=== PATIENT | male | born 1955 | race Caucasian/White ===

== ENCOUNTER 2018-12-24 14:09 | Emergency (ER) | payer BC, MEDICARE ==
[2018-12-24 14:20] VITALS: RESP 18; TEMP 99.2
--- NOTE | 2018-12-24 14:37 | ED ---
Lower Extremity Injury HPI - General Chief Complaint: Extremity Injury, Lower Stated Complaint: Hip Pain Time Seen by Provider: 12/24/18 14:12 Source: patient, RN notes reviewed, old records reviewed Mode of arrival: EMS Limitations: physical limitation - History of Present Illness Initial Comments: This is a 7-year-old male the ER for evaluation. Patient coming of severe right hip pain inability and late. Patient has history of hip surgery hip replacement as well as infection. Patient currently having severe hip pain that occurred after moving in his chair earlier today this occurred 3 days after a fall onto the ground. Patient currently unable to ambulate, denies neurological complaint of his right hip or leg MD Complaint: hip injury, thigh injury -: days(s) Injury: Hip: Right, Thigh: Right Type of Injury: blunt Place: home Severity: severe Severity scale (1-10): 9 Improves With: nothing Worsens With: weight bearing Context: fall, direct blow Associated Symptoms: snap/pop sensation - Related Data Home Medications Medication Instructions Recorded Confirmed Cholecalciferol (Vitamin D3) 1,000 unit PO DAILY 05/19/14 12/24/18 [Vitamin D3] Omeprazole 20 mg PO BID 05/19/14 12/24/18 Zolpidem Tartrate 5 mg PO HS PRN 05/19/14 12/24/18 ALPRAZolam [Xanax] 0.25 mg PO TID PRN 12/24/18 12/24/18 Diclofenac Sodium [Voltaren] 50 mg PO BID 12/24/18 12/24/18 Ergocalciferol (Vitamin D2) 50,000 unit PO Q30D 12/24/18 12/24/18 [Vitamin D2] Ibuprofen [Motrin] 800 mg PO Q6H PRN 12/24/18 12/24/18 Lisinopril [Zestril] 20 mg PO DAILY 12/24/18 12/24/18 tiZANidine HCL [Zanaflex] 4 mg PO BID 12/24/18 12/24/18 Allergies Allergy/AdvReac Type Severity Reaction Status Date / Time Quinolones Allergy Unknown Verified 12/24/18 14:47 simvastatin [From Zocor] Allergy Unknown Verified 12/24/18 14:47 Review of Systems ROS Statement: Those systems with pertinent positive or pertinent negative responses have been documented in the HPI. ROS Other: All systems not noted in ROS Statement are negative. Past Medical History Past Medical History: GERD/Reflux, Hyperlipidemia Additional Past Medical History / Comment(s): HX HIP DYSPLASIA, HX ANEMIA, RIGHT HIP DRAINING OPEN AREA OVER PREVIOUS SURGICAL SITE. WEARS LIFT SHOE RIGHT SHOE History of Any Multi-Drug Resistant Organisms: MRSA Date of last positivie culture/infection: UNKNOWN MDRO Source:: RIGHT HIP Past Surgical History: Joint Replacement, Orthopedic Surgery, Tonsillectomy Additional Past Surgical History / Comment(s): RT HIP REPLACED X4, FIRST AT AGE 13, LAST ONE 1987, LEFT KNEE POLYPS UNDER SKIN REMOVED, LEFT WRIST Past Anesthesia/Blood Transfusion Reactions: No Reported Reaction Past Psychological History: Anxiety Smoking Status: Former smoker Past Alcohol Use History: None Reported Past Drug Use History: None Reported - Past Family History Father Family Medical History: Cancer Additional Family Medical History / Comment(s): COLO-RECTAL General Exam - General Exam Comments Initial Comments: Severe right hip pain especially with movement Limitations: physical limitation General appearance: alert, in no apparent distress Head exam: Present: atraumatic, normocephalic, normal inspection Eye exam: Present: normal appearance, PERRL, EOMI. Absent: scleral icterus, conjunctival injection, periorbital swelling ENT exam: Present: normal exam, mucous membranes moist Neck exam: Present: normal inspection. Absent: tenderness, meningismus, lymphadenopathy Respiratory exam: Present: normal lung sounds bilaterally. Absent: respiratory distress, wheezes, rales, rhonchi, stridor Cardiovascular Exam: Present: regular rate, normal rhythm, normal heart sounds. Absent: systolic murmur, diastolic murmur, rubs, gallop, clicks GI/Abdominal exam: Present: soft, normal bowel sounds. Absent: distended, tenderness, guarding, rebound, rigid Extremities exam: Present: normal inspection, full ROM, normal capillary refill. Absent: tenderness, pedal edema, joint swelling, calf tenderness Back exam: Present: normal inspection Neurological exam: Present: alert, oriented X3, CN II-XII intact Psychiatric exam: Present: normal affect, normal mood Skin exam: Present: warm, dry, intact, normal color. Absent: rash Course Vital Signs 12/24/18 14:15 Temperature 99.2 F Pulse Rate 80 Respiratory 18 Rate Blood Pressure 109/75 O2 Sat by Pulse 99 Oximetry - Reevaluation(s) Reevaluation #1: 12/24/18 16:25 Medical record is reviewed Reevaluation #2: 12/24/18 16:[address] Coronado who recommends transfer for trauma surgery Reevaluation #3: 12/24/18 16:25 Patient has adequate pain control currently Medical Decision Making - Medical Decision Making 63 male the ER status post fall. Fall with fracture fractures through prior traumatic joints and prior joint replacement. Patient will be transferred to [facility] for surgical evaluation management of right femur fracture or prosthetic joint - Radiology Data Radiology results: report reviewed (X-ray right femur shows positive fracture through prosthetic joint), image reviewed Disposition Clinical Impression: Fracture of hip, Status post hip surgery, Status post revision of total hip replacement, Right femoral fracture Disposition: OTHER INSTITUTION NOT DEFINED Condition: Fair Is patient prescribed a controlled substance at d/c from ED?: No Referrals: Raphael Reddy MD [Primary Care Provider] - 1-2 days - Out of Hospital Transfer - Req. Specs Out of Hospital Transfer - Requested Specifics: Other Emergency Center ([facility])
--- NOTE | 2018-12-24 15:24 | XR ---
Right hip HISTORY: Pain, trauma 4 days prior 3 views of the right hip correlated to prior exam 07/26/2014 Patient shows right hip arthroplasty change which is stable, screw extends into the pelvis. Bone mine ralization is reduced. Heterotopic new bone formation present about the right hip. Periosteal new bon e formation is present along the femoral shaft. There is an oblique fracture through the proximal rig ht femoral diaphysis. Fracture extends through the stem portion level of the hip prosthesis. No dislo cation. Vascular calcifications. IMPRESSION: Proximal femoral fracture, postop changes. Low bone mineralization.
[2018-12-24] MEDS ORDERED: SODIUM CHLORIDE 0.9% 500 ML 500 ML IV STA (16:17)
[2018-12-24] MEDS ORDERED: SODIUM CHLORIDE 0.9% 1,000 ML IV STA (16:17)
[2018-12-24] MEDS ORDERED: MORPHINE SULFATE 4 MG/ML SYRINGE IV STA (16:17)
[2018-12-24 17:03] LABS: Basophils # (A) 0.1 k/uL (0-0.2); Basophils % (A) 1 %; Eosinophils # (A) 0.2 k/uL (0-0.7); Eosinophils % (A) 3 %; HCT 41.9 % (39.0-53.0); HGB 14.2 gm/dL (13.0-17.5); Lymphocytes # (A) 0.9 k/uL (1.0-4.8); Lymphocytes % (A) 17 %; MCHC 33.8 g/dL (31.0-37.0); MCV 91.7 fL (80.0-100.0); Mean Platelet Volume 7.6; Monocytes # (A) 0.4 k/uL (0-1.0); Monocytes % (A) 8 %; Neutrophils # (A) 3.7 k/uL (1.3-7.7); Neutrophils % (A) 69 %; Platelet Count 236 k/uL (150-450); RBC 4.57 m/uL (4.30-5.90); RDW 13.5 % (11.5-15.5); WBC 5.4 k/uL (3.8-10.6)
[2018-12-24 17:06] LABS: Albumin 3.5 g/dL (3.5-5.0); INR 0.9 (<1.2); Magnesium 1.9 mg/dL (1.6-2.3); Partial Thromboplastin Time 23.7 sec (22.0-30.0); Potassium 4.7 mmol/L (3.5-5.1); Prothrombin Time 9.5 sec (9.0-12.0); Total Bilirubin 0.7 mg/dL (0.2-1.3); Total Protein 6.1 g/dL (6.3-8.2)
[2018-12-24 17:43] VITALS: BP 146/93; PULSE 86
== END 2018-12-24 17:45 | disposition other institution (70) ==
LOC: EC 14:09
DX: S72.001A Fracture of unspecified part of neck of right femur, initial encounter for closed fracture (principal); K21.9 Gastro-esophageal reflux disease without esophagitis; Z96.641 Presence of right artificial hip joint; Z87.891 Personal history of nicotine dependence; Z86.14 Personal history of Methicillin resistant Staphylococcus aureus infection; Z79.1 Long term (current) use of non-steroidal anti-inflammatories (NSAID); Z79.899 Other long term (current) drug therapy; Z88.8 Allergy status to other drugs, medicaments and biological substances; W01.0XXA Fall on same level from slipping, tripping and stumbling without subsequent striking against object, initial encounter; Y92.009 Unspecified place in unspecified non-institutional (private) residence as the place of occurrence of the external cause
CPT/HCPCS: 99285; 96374; 96361; 36415; 80053; 83735; 84100; 85025; 85610; 85730; 73502; J2270

== ENCOUNTER → 2019-08-24 | Outpatient (CLI) | payer MEDICARE, OTHER ==
--- NOTE | 2019-08-24 09:00 | US ---
EXAMINATION TYPE: US liver DATE OF EXAM: 08/24/2019 COMPARISON: NONE CLINICAL HISTORY: R94.5 Abnormal Liver Function Test. abn labs, no symptoms EXAM MEASUREMENTS: Liver Length: 9.7 cm Gallbladder Wall: 0.3 cm CBD: 0.7 cm Right Kidney: 9.7 x 5.7 x 5.3 cm Pancreas: wnl Liver: wnl Gallbladder: wnl Evidence for sonographic Hernández's sign: no CBD: wnl Right Kidney: wnl IMPRESSION: 1. Unremarkable study.
== END | disposition home or self-care (01) ==
LOC: RADUSWWP 08:30
PROVIDERS: ATTEND Family Medicine
DX: R94.5 Abnormal results of liver function studies (principal); Z88.5 Allergy status to narcotic agent; Z88.6 Allergy status to analgesic agent; Z88.8 Allergy status to other drugs, medicaments and biological substances; Z91.018 Allergy to other foods
CPT/HCPCS: 76705

== ENCOUNTER 2021-12-26 07:49 | Day surgery (SDC) | payer MEDICARE ==
[2021-12-25 08:53] VITALS: BMI 33.9
[~2021-12-26 07:49] MED LIST: LACTATED RINGERS 1,000 ML IV SCH; LIDOCAINE 1% (10MG/ML) FOR IV START INTRADERMA PRN
[2021-12-26 08:15] VITALS: TEMP 98.1
[2021-12-26] MEDS ORDERED: MIDAZOLAM 2 MG/2 ML VIAL ONE (08:31)
[2021-12-26] MEDS ORDERED: PROPOFOL 10 MG/ML 20 ML VIAL IV ONE (08:31)
[2021-12-26] MEDS ORDERED: LIDOCAINE 2% INJ 20 MG/ML (2 ML VIAL) ONE (08:31)
[2021-12-26] MEDS ORDERED: fentaNYL (PF) 50 MCG/ML 2 ML AMP ONE (08:31)
--- NOTE | 2021-12-26 08:35 | P.GSHP ---
History of Present Illness H&P Date: 12/26/21 Chief Complaint: GERD, screening 66-year-old male here today for upper and lower endoscopy. Patient with history of Wen's esophagus and chronic reflux. Last EGD 2013. Patient also with family history of colon cancer in his father. Last colonoscopy 8 years ago. No bowel complaints. Past Medical History Past Medical History: Deep Vein Thrombosis (DVT), GERD/Reflux, Hyperlipidemia, Hypertension, Thyroid Disorder Additional Past Medical History / Comment(s): RIGHT HIP DYSPLASIA, ANEMIA, CHRONIC INFECTION AND ELEVATED INFLAMMATORY MARKERS History of Any Multi-Drug Resistant Organisms: MRSA Date of last positivie culture/infection: UNKNOWN MDRO Source:: RIGHT HIP Past Surgical History: Hernia Repair, Joint Replacement, Orthopedic Surgery, Tonsillectomy Additional Past Surgical History / Comment(s): RT HIP REPLACED MULTIPLE TIMES SINCE THE AGE OF 13-ARTIFICAL HIP HAS SINCE BEEN REMOVED DUE TO ONGOING INFECTION AND PT USES A WHEELCHAIR, LEFT KNEE POLYPS UNDER SKIN REMOVED, LEFT WRIST SURG CHILD Past Anesthesia/Blood Transfusion Reactions: No Reported Reaction Past Psychological History: Anxiety Smoking Status: Current every day smoker Past Alcohol Use History: Daily Past Drug Use History: None Reported - Past Family History Father Family Medical History: Cancer Additional Family Medical History / Comment(s): COLO-RECTAL Medications and Allergies Home Medications Medication Instructions Recorded Confirmed Type Omeprazole 20 mg PO BID PRN 05/19/14 12/26/21 History ALPRAZolam [Xanax] 0.25 mg PO TID PRN 12/24/18 12/26/21 History lisinopriL [Zestril] 40 mg PO DAILY 12/24/18 12/26/21 History tiZANidine HCL [Zanaflex] 4 mg PO BID 12/24/18 12/26/21 History Doxycycline Hyclate 50 mg PO BID 12/25/21 12/26/21 History Fenofibrate 120 mg PO DAILY 12/25/21 12/26/21 History Ferrous Sulfate [Iron] 325 mg PO DAILY 12/25/21 12/26/21 History Icosapent Ethyl [Vascepa] 1 gm PO BID 12/25/21 12/26/21 History Levothyroxine Sodium [Synthroid] 25 mcg PO DAILY 12/25/21 12/26/21 History Pravastatin Sodium [Pravachol] 40 mg PO HS 12/25/21 12/26/21 History traZODone HCL [Desyrel] 50 mg PO HS 12/25/21 12/26/21 History Allergies Allergy/AdvReac Type Severity Reaction Status Date / Time codeine Allergy Itching Verified 12/26/21 08:10 onion Allergy Nausea & Verified 12/26/21 08:10 Vomiting & Diarrhea Quinolones Allergy Unknown Verified 12/26/21 08:10 simvastatin [From Zocor] Allergy Unknown Verified 12/26/21 08:10 Surgical - Exam Vital Signs Temp Pulse Resp BP Pulse Ox 98.1 F 89 20 124/87 99 12/26/21 08:14 12/26/21 08:14 12/26/21 08:14 12/26/21 08:14 12/26/21 08:14 Physical exam: General: Well-developed, well-nourished HEENT: Normocephalic, sclerae nonicteric Abdomen: Nontender, nondistended Extremities: No edema Neuro: Alert and oriented Assessment and Plan (1) Colon cancer screening Narrative/Plan: Will proceed with upper and lower endoscopy at this time. Current Visit: Yes Status: Acute Code(s): Z12.11 - ENCOUNTER FOR SCREENING FOR MALIGNANT NEOPLASM OF COLON SNOMED Code(s): 628303251
--- NOTE | 2021-12-26 09:01 | P.PCN ---
Date of Procedure: 12/26/21 Procedure(s) Performed: PREOPERATIVE DIAGNOSIS: GERD, Wen's esophagus, family history of colon cancer, screening POSTOPERATIVE DIAGNOSIS: Gastritis, hiatal hernia, Wen's esophagus, tortuous colon, diverticulosis PROCEDURE: 1. EGD with biopsy 2. Colonoscopy to the transverse colon ANESTHESIA: [facility] [place]GEON: Sharif Zheng M.D. SPECIMENS: Antrum, distal esophagus ENDOSCOPIC PROCEDURE: The patient was on the endoscopy table in the left decubitus position. The Olympus gastroscope was inserted into the oropharynx and passed under direct visualization to the region of the third portion of the duodenum. From that point the scope was slowly withdrawn inspecting all surfaces carefully. There were no neoplastic inflammatory or polypoid lesions throughout the duodenum. The pylorus was widely patent. The stomach was carefully inspected. There was mild gastritis present. A biopsy of the antrum took place to rule out H. pylori. Retroflexion revealed a small moderate-sized hiatal hernia. GE junction was present 3 cm above the diaphragmatic hiatus. The patient had a short 1.5 cm segment of Wen's esophagus. A biopsy was taken. There were no inflammatory changes there. The remainder the esophagus appear normal. The patient was kept on the endoscopy table in the left decubitus position. The Olympus colonoscope was inserted into the anus and passed under direct visualization to the mid transverse colon. We could not advance the scope any more proximal than that because of distal tortuosity. Multiple attempts and abdominal pressure was applied without success. The scope was withdrawn. There were no abnormalities identified through the transverse descending sigmoid or rectum. The patient had mild diverticulosis. Digital rectal examination was normal. The patient was taken to the recovery room in stable condition per anesthesia guidelines. RECOMMENDATIONS: Will discuss options of barium enema with patient. Continue antiacid therapy. Await biopsy results. Repeat EGD and colonoscopy 5 years
[2021-12-26 09:39] VITALS: BP 117/78; PULSE 74; RESP 18
--- NOTE | 2021-12-26 15:56 | FL ---
EXAMINATION TYPE: FL barium enema DATE OF EXAM: 12/26/2021 COMPARISON: NONE HISTORY: Family history of colon cancer. Incomplete colonoscopy. TECHNIQUE: A double contrast barium enema study is performed. A total of 3 minutes and 51 seconds o f fluoroscopic time was utilized during procedure and 37 images obtained. FINDINGS: Packer Fuser view of the abdomen shows. Osteopenia with significant remodeling of the right pelvi c bones and chronic displaced impacted fracture of the right femoral neck associated with right proxi mal femoral fixation and deformity. Suboptimal barium enema as the patient is completely unable to ta ke the right lateral position or to stand up. Elongated redundant sigmoid colon with reduced caliber and multiple diverticulosis, probably related to chronic diverticulosis. Similar changes are seen in the descending colon. Suboptimal filling and g aseous distention of the transverse colon and right hemicolon. The cecum was not opacified. No evidence of any mass or polyp, obstructing or constricting lesion throughout the left hemicolon. I t is not possible to exclude a colonic mass, stricture or other lesion in the right hemicolon or the transverse colon. IMPRESSION: Suboptimal barium enema as described above. No definite colonic mass or stricture in the left hemicol on. Colonic diverticulosis. It is not possible to exclude a colonic mass, stricture or other lesion i n the right hemicolon. Further CT colonography or routine CT scan of the abdomen and pelvis can be considered to evaluate th e right hemicolon.
== END 2021-12-26 09:59 | disposition home or self-care (01) ==
LOC: ORWHC2ENDO 07:49
PROVIDERS: ATTEND Surgery
DX: K29.50 Unspecified chronic gastritis without bleeding (principal); K22.70 Barrett's esophagus without dysplasia; K57.30 Diverticulosis of large intestine without perforation or abscess without bleeding; K44.9 Diaphragmatic hernia without obstruction or gangrene; K29.80 Duodenitis without bleeding; K21.9 Gastro-esophageal reflux disease without esophagitis; E78.5 Hyperlipidemia, unspecified; F17.200 Nicotine dependence, unspecified, uncomplicated; I10 Essential (primary) hypertension; Z86.718 Personal history of other venous thrombosis and embolism; Z80.0 Family history of malignant neoplasm of digestive organs
CPT/HCPCS: 88305; 45378; 43239; 74270; J2250; J3010; J2704; J2001

== ENCOUNTER 2022-10-22 09:20 | Inpatient (IN) | payer MEDICARE, OTHER ==
[2022-10-22] MEDS ORDERED: RX INFO: IV CONTRAST WAS GIVEN 1 EACH MISC MISCELLANE PRN (10:01)
--- NOTE | 2022-10-22 10:09 | ED ---
Extremity Problem HPI - General Chief complaint: Extremity Problem,Nontraumatic Stated complaint: pain left leg Time Seen by Provider: 10/22/22 09:33 Source: patient, RN notes reviewed Mode of arrival: ambulatory Limitations: no limitations - History of Present Illness Initial comments: This is a 67-year-old male who presents to the emergency department for left leg pain. Patient states that this has been increasing over the last week. Pain is controlled when lying down, however he states that he is barely able to put pressure on it when standing up due to the pain. Also states that his foot appears purple. He's had problems with his foot turning purple and becoming cold on and off for the last month. States that he was previously admitted for a blood clot in the left leg. Unsure if this was venous or arterial. He is currently taking Eliquis. Denies any chest pain or shortness of breath. Denies any fevers, chills, sore throat, cough, dyspnea, chest pain, palpitations, abdominal pain, nausea, vomiting, diarrhea, back pain, or headaches. MD Complaint: extremity pain, extremity swelling Onset/Timin -: week(s) Location: left, lower extremity Associated Symptoms: denies other symptoms - Related Data Home Medications Medication Instructions Recorded Confirmed tiZANidine HCL [Zanaflex] 4 mg PO DAILY 12/24/18 10/22/22 traZODone HCL [Desyrel] 50 - 100 mg PO HS PRN 12/25/21 10/22/22 ALPRAZolam [Xanax] 0.5 mg PO TID PRN 10/22/22 10/22/22 Albuterol Sulfate [Ventolin HFA] 2 puff INHALATION RT-Q6H PRN 10/22/22 10/22/22 Apixaban [Eliquis] 5 mg PO BID 10/22/22 10/22/22 Cholecalciferol [Vitamin D3 (25 25 mcg PO DAILY 10/22/22 10/22/22 Mcg = 1000 Iu)] Doxycycline Hyclate 200 mg PO DAILY 10/22/22 10/22/22 Fenofibrate [Lofibra] 160 mg PO DAILY 10/22/22 10/22/22 Levothyroxine Sodium [Synthroid] 50 mcg PO DAILY 10/22/22 10/22/22 icosapent ethyL [Icosapent Ethyl] 2 gm PO DAILY 10/22/22 10/22/22 lisinopriL 40 mg PO DAILY 10/22/22 10/22/22 Allergies Allergy/AdvReac Type Severity Reaction Status Date / Time codeine Allergy Itching Verified 10/22/22 14:00 onion Allergy Nausea & Verified 10/22/22 14:00 Vomiting & Diarrhea Quinolones Allergy Unknown Verified 10/22/22 14:00 simvastatin [From Zocor] Allergy Unknown Verified 10/22/22 14:00 Review of Systems ROS Statement: Those systems with pertinent positive or pertinent negative responses have been documented in the HPI. ROS Other: All systems not noted in ROS Statement are negative. Past Medical History Past Medical History: Deep Vein Thrombosis (DVT), GERD/Reflux, Hyperlipidemia, Hypertension, Thyroid Disorder Additional Past Medical History / Comment(s): RIGHT HIP DYSPLASIA, ANEMIA, CHRONIC INFECTION AND ELEVATED INFLAMMATORY MARKERS, DVT History of Any Multi-Drug Resistant Organisms: MRSA Date of last positivie culture/infection: UNKNOWN MDRO Source:: RIGHT HIP Past Surgical History: Hernia Repair, Joint Replacement, Orthopedic Surgery, Tonsillectomy Additional Past Surgical History / Comment(s): RT HIP REPLACED MULTIPLE TIMES SINCE THE AGE OF 13-ARTIFICAL HIP HAS SINCE BEEN REMOVED DUE TO ONGOING INFECTION AND PT USES A WHEELCHAIR, LEFT KNEE POLYPS UNDER SKIN REMOVED, LEFT WRIST SURG CHILD Past Anesthesia/Blood Transfusion Reactions: No Reported Reaction Past Psychological History: Anxiety Smoking Status: Current every day smoker Past Alcohol Use History: Daily Past Drug Use History: None Reported - Past Family History Father Family Medical History: Cancer Additional Family Medical History / Comment(s): COLO-RECTAL General Exam Limitations: no limitations General appearance: alert, in no apparent distress Head exam: Present: atraumatic, normocephalic, normal inspection Respiratory exam: Present: normal lung sounds bilaterally. Absent: respiratory distress, wheezes, rales, rhonchi, stridor Cardiovascular Exam: Present: regular rate, normal rhythm, normal heart sounds. Absent: systolic murmur, diastolic murmur, rubs, gallop, clicks Extremities exam: Present: other (Dark dusky appearance to the left foot and ankle, which is also cool to the touch. Nonpalpable DP and PT pulses. Capillary refill 2-3 seconds.) Neurological exam: Present: alert, oriented X3, CN II-XII intact Psychiatric exam: Present: normal affect, normal mood Course Vital Signs 10/22/22 10/22/22 10/22/22 09:30 10:32 12:47 Temperature 98.4 F Pulse Rate 93 75 85 Respiratory 20 18 18 Rate Blood Pressure 124/83 123/84 142/95 O2 Sat by Pulse 99 96 98 Oximetry 10/22/22 14:00 Temperature Pulse Rate 87 Respiratory 18 Rate Blood Pressure 128/97 O2 Sat by Pulse 96 Oximetry Medical Decision Making - Medical Decision Making This is a 67-year-old male who presents to the emergency department for left leg pain and swelling. Was pt. sent in by a medical professional or institution? @ -No Did you speak to anyone other than the patient for history? @ -No Did you review nursing and triage notes? @ -Yes, and I agree, it is accurate with regards to the patient's symptoms. Were old charts reviewed? @ -No Differential Diagnosis? @ -Differential Leg Pain: Leg fracture, leg sprain, DVT, PVD, arterial insufficiency, iliac artery aneurysm, cellulitis, compartment syndrome, tendinopathy, nerve entrapment, piriformis syndrome, osteoarthritis, rhabdomyolysis, myositis, cramping from an electrolyte imbalance, this is not meant to be an all inclusive list. CT interpreted by me (1pt min.)? @ -CT angiogram of the left lower extremity obtained. My interpretation identifies a left SFA occlusion. What testing was considered but not performed? (CT, X-rays, U/S, labs)? Why? @ -None What meds were considered but not given? Why? @ -None Did you discuss the management of the patient with other professionals? @ -Yes, Dr. Mosqueda, vascular surgery, who advised admission to medicine with vascular consult. I then spoke with Dr. Reddy, who accepts the patient for admission. Did you reconcile home meds? @ -No Was smoking cessation discussed for >3mins.? @ -No Was critical care preformed (if so, how long)? @ -No Were there social determinants of health that impacted care today? How? (Homelessness, low income, unemployed, alcoholism, drug addiction, transportation, low edu. Level, literacy, decrease access to med. care, penitentiary, rehab)? @ -No Was there de-escalation of care discussed even if they declined? (Discuss DNR or withdrawal of care, Hospice)? @ -No What co-morbidities impacted this encounter? (DM, HTN, Smoking, COPD, CAD, Cancer, CVA, Hep., AIDS, mental health diagnosis, sleep apnea, morbid obesity)? @ -HLD, HTN Was patient admitted / discharged? @ -Admitted. Patient did have a cool extremity on exam and pulses could not be palpated or found with the Doppler by either myself or the patient's nurse. CT angiogram of the left leg obtained revealing superficial femoral artery occlusion. Case discussed with Dr. Mosqueda, vascular surgery. We initially plan isidra on starting the patient on a heparin drip. However, the decision was made to take him to the [facility] instead. Patient was taken from the ED to the chemical laboratory technician for angiogram. Patient admitted to medicine with vascular surgery on as consult. Undiagnosed new problem with uncertain prognosis? @ -None Drug Therapy requiring intensive monitoring for toxicity (Heparin, Nitro, Insulin, Cardizem)? @ -None Were any procedures done? @ -None Diagnosis/symptom? @ -Left superficial femoral artery occlusion Acute, or Chronic, or Acute on Chronic? @ -Acute Uncomplicated (without systemic symptoms) or Complicated (systemic symptoms)? @ -Complicated Side effects of treatment? @ -None Exacerbation, Progression, or Severe Exacerbation] @ -Not applicable Poses a threat to life or bodily function? @ -Yes This case was discussed in detail with the attending ED physician, Dr. Patino. Presentation, findings, and treatment plan discussed in detail as well. - Lab Data Result diagrams: 10/23/22 03:53 10/22/22 10:36 Lab Results 10/22/22 10/22/22 10/22/22 Range/Units 10:36 10:36 11:35 WBC 5.2 (3.8-10.6) k/uL RBC 5.67 (4.30-5.90) m/uL Hgb 20.1 H* (13.0-17.5) gm/dL Hct 58.4 H* (39.0-53.0) % MCV 103.0 H (80.0-100.0) fL MCH 35.3 H (25.0-35.0) pg MCHC 34.3 (31.0-37.0) g/dL RDW 14.2 (11.5-15.5) % Plt Count 157 (150-450) k/uL MPV 7.6 Neutrophils % 68 % Lymphocytes % 19 % Monocytes % 6 % Eosinophils % 4 % Basophils % 1 % Neutrophils # 3.5 (1.3-7.7) k/uL Lymphocytes # 1.0 (1.0-4.8) k/uL Monocytes # 0.3 (0-1.0) k/uL Eosinophils # 0.2 (0-0.7) k/uL Basophils # 0.0 (0-0.2) k/uL Macrocytosis Slight PT 9.7 (9.0-12.0) sec INR 0.9 (<1.2) APTT 21.3 L (22.0-30.0) sec Sodium 132 L (137-145) mmol/L Potassium 4.3 (3.5-5.1) mmol/L Chloride 100 (98-107) mmol/L Carbon Dioxide 25 (22-30) mmol/L Anion Gap 7 mmol/L BUN 14 (9-20) mg/dL Creatinine 0.89 (0.66-1.25) mg/dL Est GFR (CKD-EPI)AfAm >90 (>60 ml/min/1.73 sqM) Est GFR (CKD-EPI)NonAf 89 (>60 ml/min/1.73 sqM) Glucose 95 (74-99) mg/dL Calcium 9.2 (8.4-10.2) mg/dL Total Bilirubin 0.9 (0.2-1.3) mg/dL AST 28 (17-59) U/L ALT 15 (4-49) U/L Alkaline Phosphatase 76 (38-126) U/L Total Protein 6.5 (6.3-8.2) g/dL Albumin 3.6 (3.5-5.0) g/dL - Radiology Data Radiology results: report reviewed, image reviewed Disposition Clinical Impression: Superficial femoral artery occlusion Disposition: ADMITTED IP TO THIS HOSP
[2022-10-22 10:52] LABS: Basophils % (A) 1 %; Eosinophils # (A) 0.2 k/uL (0-0.7); Eosinophils % (A) 4 %; Lymphocytes % (A) 19 %; MCH 35.3 pg (25.0-35.0); MCHC 34.3 g/dL (31.0-37.0); Macrocytosis Slight; Mean Platelet Volume 7.6; Monocytes # (A) 0.3 k/uL (0-1.0); Monocytes % (A) 6 %; Neutrophils # (A) 3.5 k/uL (1.3-7.7); Neutrophils % (A) 68 %; Platelet Count 157 k/uL (150-450); RBC 5.67 m/uL (4.30-5.90); RDW 14.2 % (11.5-15.5); WBC 5.2 k/uL (3.8-10.6)
[2022-10-22 11:00] LABS: ALT 15 U/L (4-49); African American GFR (CKD) >90 (>60 ml/min/1.73 sqM); Albumin 3.6 g/dL (3.5-5.0); Anion Gap 7 mmol/L; Blood Urea Nitrogen 14 mg/dL (9-20); Calcium 9.2 mg/dL (8.4-10.2); Carbon Dioxide 25 mmol/L (22-30); Chloride 100 mmol/L (98-107); Glucose 95 mg/dL (74-99); Non-African American GFR(CKD) 89 (>60 ml/min/1.73 sqM); Sodium 132 mmol/L (137-145); Total Bilirubin 0.9 mg/dL (0.2-1.3); Total Protein 6.5 g/dL (6.3-8.2)
[2022-10-22 11:08] LABS: HGB 20.1 gm/dL (13.0-17.5)
[2022-10-22 11:09] LABS: HCT 58.4 % (39.0-53.0)
[2022-10-22 11:21] LABS: AST 28 U/L (17-59); Alkaline Phosphatase 76 U/L (38-126); Potassium 4.3 mmol/L (3.5-5.1)
[2022-10-22 12:13] LABS: INR 0.9 (<1.2); Prothrombin Time 9.7 sec (9.0-12.0)
[2022-10-22 12:22] LABS: Partial Thromboplastin Time 21.3 sec (22.0-30.0)
--- NOTE | 2022-10-22 12:25 | CT ---
EXAMINATION TYPE: CT angio lower extremity LT DATE OF EXAM: 10/22/2022 COMPARISON: None HISTORY: 67-year-old male No pulse to left foot TECHNIQUE: CT of the abdomen and pelvis without and with IV Contrast, patient injected with 125 mL of Isovue 370. Postcontrast bilateral lower centimeter runoff was performed. Coronal/sagittal reconstru ctions performed. 3-D reconstructions generated on a dedicated independent workstation. CT DLP: 2098.7 mGycm Automated exposure control for dose reduction was used. FINDINGS: * Small hiatal hernia. * Underlying hepatic steatosis. * Either dependent soft tissue or noncalcified gallstone measuring up to 1.5 cm in the gallbladder. Dedicated gallbladder ultrasound to further evaluate. * No dilated small bowel, free fluid, or free air. No mesenteric or retroperitoneal lymphadenopathy. * Small 3.0 cm fatty umbilical hernia. * Left-sided clonic diverticulosis without pericolonic inflammatory change. Scattered bilateral atherosclerotic calcifications in the abdominal aorta without aneurysm. Right: Minimal to mild atherosclerotic calcifications within the right iliac arteries. Mild apical scarring calcification and plaque right [employer] and right SFA. PFA is patent. Popliteal artery is patent. Normal takeoff of the anterior tibial artery with scattered mild to moderate atherosclerotic calcific ations. The peroneal artery becomes diminutive and no longer seen just above the ankle. There is runoff via t he anterior and posterior tibial arteries. Marked generalized soft tissue edema of the right lower extremity especially distally. Left: Scattered minimal to mild apical scarring calcifications within the iliac arteries. Mild atherosclerotic changes [employer] and SFA. PFA is patent. However, there is occlusion of the SFA just after the adductor hiatus and no subsequent flow seen on this phase of imaging. Bones: Moderate to advanced spondylitic change within the visualized lumbar spine. Severe chronic deformity of the right hip likely with embedded antibiotic impregnated cement within t he acetabulum. There is loss of the proximal right femur with antegrade intramedullary nail noted. Th e proximal end of the nail abuts the lateral margin of the acetabulum and there is an underlying larg e joint effusion. Clinical correlation can be made to exclude any underlying infection. IMPRESSION: 1. SCATTERED MILD ATHEROSCLEROTIC CALCIFICATIONS BUT WITH DISTAL LEFT SFA OCCLUSION AT THE LEVEL OF T HE ADDUCTOR HIATUS. NO SUBSEQUENT DISTAL ARTERIAL FLOW IS SEEN ON THIS PHASE OF IMAGING. 2. EITHER 1.5 CM NONCALCIFIED GALLSTONE OR POSTERIOR WALL SOFT TISSUE IN THE GALLBLADDER. GALLBLADDER ULTRASOUND CAN FURTHER EVALUATE. 3. RIGHT HIP ABNORMALITY WITH PRIOR SURGERY AND A LARGE EFFUSION/SYNOVITIS. CORRELATE CLINICALLY TO E XCLUDE UNDERLYING INFECTION. Clinical findings called to Dr. Hector in the ER at 12:20 PM.
[2022-10-22] MEDS ORDERED: HEPARIN SODIUM 1,000 UN/ML (10ML VL) IV ONE (12:31)
[2022-10-22] MEDS ORDERED: HEPARIN SODIUM 1,000 UN/ML (10ML VL) IV PRN (12:31)
[2022-10-22] MEDS ORDERED: HYDROmorphone 0.5 MG/0.5 ML SYRINGE IVP STA (12:32)
[2022-10-22] MEDS ORDERED: HEPARIN SOD,PORK IN 0.45% NACL 25,000 UNIT in 0.45% NACL 1 250ML.BAG IV SCH (12:45)
--- NOTE | 2022-10-22 13:11 | P.GSCN ---
History of Present Illness Consult date: 10/22/22 Reason for Consult: Left lower extremity pain, acute ischemia Requesting physician: Stephanie Hector History of present illness: This is a pleasant 67-year-old male with a past medical history significant for COPD, hypertension, one pack per day smoker, history of right lower extremity DVT on Eliquis who is wheelchair bound following a right femur hip replacement and fall. She presented to the emergency department with complaints of pain in the left lower extremity that began about 1 week ago. Patient is now having discoloration as well, which she states also started about 1 week ago. He states most of his pain is while laying down and sleeping. Patient is wheelchair bound, denies pain when he is sitting up. Last took Eliquis this morning. Denies any previous history of peripheral vascular disease. Patient had a CTA of the left lower extremity that reported superficial femoral artery occlusion, with arthrosclerotic changes. Profundus femoral artery patent. Vascular surgery consulted for SFA occlusion. Patient currently does not appear in any acute distress. He denies any shortness of breath or chest pain, no abdominal pain, nausea or vomiting. He's been afebrile. Review of Systems A 14 point review systems was completed all pertinent positives and negatives as stated in the HPI. Past Medical History Past Medical History: Deep Vein Thrombosis (DVT), GERD/Reflux, Hyperlipidemia, Hypertension, Thyroid Disorder Additional Past Medical History / Comment(s): RIGHT HIP DYSPLASIA, ANEMIA, CHRONIC INFECTION AND ELEVATED INFLAMMATORY MARKERS, DVT History of Any Multi-Drug Resistant Organisms: MRSA Year Discovered:: UNKNOWN MDRO Source:: RIGHT HIP Past Surgical History: Hernia Repair, Joint Replacement, Orthopedic Surgery, Tonsillectomy Additional Past Surgical History / Comment(s): RT HIP REPLACED MULTIPLE TIMES SINCE THE AGE OF 13-ARTIFICAL HIP HAS SINCE BEEN REMOVED DUE TO ONGOING INFECTION AND PT USES A WHEELCHAIR, LEFT KNEE POLYPS UNDER SKIN REMOVED, LEFT WRIST SURG CHILD Past Anesthesia/Blood Transfusion Reactions: No Reported Reaction Past Psychological History: Anxiety Smoking Status: Current every day smoker Past Alcohol Use History: Daily Past Drug Use History: None Reported - Past Family History Father Family Medical History: Cancer Additional Family Medical History / Comment(s): COLO-RECTAL Medications and Allergies Home Medications Medication Instructions Recorded Confirmed Type Omeprazole 20 mg PO BID PRN 05/19/14 12/26/21 History ALPRAZolam [Xanax] 0.25 mg PO TID PRN 12/24/18 12/26/21 History lisinopriL [Zestril] 40 mg PO DAILY 12/24/18 12/26/21 History tiZANidine HCL [Zanaflex] 4 mg PO BID 12/24/18 12/26/21 History Doxycycline Hyclate 50 mg PO BID 12/25/21 12/26/21 History Fenofibrate 120 mg PO DAILY 12/25/21 12/26/21 History Ferrous Sulfate [Iron] 325 mg PO DAILY 12/25/21 12/26/21 History Levothyroxine Sodium [Synthroid] 25 mcg PO DAILY 12/25/21 12/26/21 History Pravastatin Sodium [Pravachol] 40 mg PO HS 12/25/21 12/26/21 History icosapent ethyL [Vascepa] 1 gm PO BID 12/25/21 12/26/21 History traZODone HCL [Desyrel] 50 mg PO HS 12/25/21 12/26/21 History Allergies Allergy/AdvReac Type Severity Reaction Status Date / Time codeine Allergy Itching Verified 10/22/22 09:32 onion Allergy Nausea & Verified 10/22/22 09:32 Vomiting & Diarrhea Quinolones Allergy Unknown Verified 10/22/22 09:32 simvastatin [From Zocor] Allergy Unknown Verified 10/22/22 09:32 Surgical - Exam Vital Signs Temp Pulse Resp BP Pulse Ox 98.4 F 93 20 124/83 99 10/22/22 09:30 10/22/22 09:30 10/22/22 09:30 10/22/22 09:30 10/22/22 09:30 General appearance: The patient is alert, oriented, appears in no acute distress. HET: Head is normocephalic and atraumatic. Pupils are equal and reactive. Neck: Supple. Trachea midline. Heart: Regular. Lungs: Equal expansion, normal respiratory effort. Bilateral expiratory wheezes . Abdomen: Soft, nontender, nondistended. Extremities: Right lower extremity lymphedema, good capillary refill. Palpable bilateral femoral pulses. Left foot with decreased/sluggish capillary refill, cool to the touch, purple. Patient has decreased sensorimotor in the left foot however is able to feel light touch and wiggle toes slightly, tender to palpation in left calf with squeezing. Neurological: No focal deficits. Alert and oriented 3. Results - Labs 10/22/22 10:36 10/22/22 10:36 Abnormal Lab Results - Last 24 Hours (Table) 10/22/22 10/22/22 10/22/22 Range/Units 10:36 10:36 11:35 Hgb 20.1 H* (13.0-17.5) gm/dL Hct 58.4 H* (39.0-53.0) % MCV 103.0 H (80.0-100.0) fL MCH 35.3 H (25.0-35.0) pg APTT 21.3 L (22.0-30.0) sec Sodium 132 L (137-145) mmol/L Diabetes panel 10/22/22 Range/Units 10:36 Sodium 132 L (137-145) mmol/L Potassium 4.3 (3.5-5.1) mmol/L Chloride 100 (98-107) mmol/L Carbon Dioxide 25 (22-30) mmol/L BUN 14 (9-20) mg/dL Creatinine 0.89 (0.66-1.25) mg/dL Glucose 95 (74-99) mg/dL Calcium 9.2 (8.4-10.2) mg/dL AST 28 (17-59) U/L ALT 15 (4-49) U/L Alkaline Phosphatase 76 (38-126) U/L Total Protein 6.5 (6.3-8.2) g/dL Albumin 3.6 (3.5-5.0) g/dL Calcium panel 10/22/22 Range/Units 10:36 Calcium 9.2 (8.4-10.2) mg/dL Albumin 3.6 (3.5-5.0) g/dL Pituitary panel 10/22/22 Range/Units 10:36 Sodium 132 L (137-145) mmol/L Potassium 4.3 (3.5-5.1) mmol/L Chloride 100 (98-107) mmol/L Carbon Dioxide 25 (22-30) mmol/L BUN 14 (9-20) mg/dL Creatinine 0.89 (0.66-1.25) mg/dL Glucose 95 (74-99) mg/dL Calcium 9.2 (8.4-10.2) mg/dL Adrenal panel 10/22/22 Range/Units 10:36 Sodium 132 L (137-145) mmol/L Potassium 4.3 (3.5-5.1) mmol/L Chloride 100 (98-107) mmol/L Carbon Dioxide 25 (22-30) mmol/L BUN 14 (9-20) mg/dL Creatinine 0.89 (0.66-1.25) mg/dL Glucose 95 (74-99) mg/dL Calcium 9.2 (8.4-10.2) mg/dL Total Bilirubin 0.9 (0.2-1.3) mg/dL AST 28 (17-59) U/L ALT 15 (4-49) U/L Alkaline Phosphatase 76 (38-126) U/L Total Protein 6.5 (6.3-8.2) g/dL Albumin 3.6 (3.5-5.0) g/dL Assessment and Plan Assessment: 1. Left lower extremity acute ischemia 2. Left lower extremity superficial femoral artery occlusion 3. Left lower extremity pain 4. COPD 5. History of right lower extremity DVT on Eliquis 6. Nicotine abuse, 1 pack per day smoker Plan: 1. Admit to medicine, patient will need ICU bed, post angiogram 2. Keep nothing by mouth 3. Cancel heparin drip, will initiate after procedure 4. Medical management per primary medicine team Dr. Mosqueda independently reviewed CT angiogram images. I discussed with patient and who was at the bedside, concern for acute ischemia of the left lower extremity likely SFA occlusion with recommendation to proceed with angiogram with possible TPA thrombolysisFoley. We'll plan for angiogram this afternoon. Further recommendations forthcoming based on findings. The impression and plan of care has been dictated as directed. I performed a history and examination of this patient, discussed the same with the dictator. I agree with the dictator's note ,documented as a scribe. Any additional findings or plans will be noted.
[2022-10-22] MEDS ORDERED: ACETAMINOPHEN TAB 325 MG TAB PO PRN (13:44)
[2022-10-22] MEDS ORDERED: ONDANSETRON 4 MG/2 ML VIAL IVP PRN (13:44)
[2022-10-22] MEDS ORDERED: NALOXONE 0.4 MG/ML 1 ML VIAL IV PRN (13:44)
[2022-10-22] MEDS ORDERED: MIDAZOLAM 2 MG/2 ML VIAL IV ONE (14:08)
[2022-10-22] MEDS: fentaNYL (PF) 50 MCG/ML 2 ML AMP IV ONE ×2 (14:08→15:08)
[2022-10-22] MEDS ORDERED: LIDOCAINE 1% INJ 10MG/ML (20 ML MDV) SQ ONE (14:13)
[2022-10-22] MEDS ORDERED: SODIUM CHLORIDE 0.9% 1,000 ML IV ONE (14:22)
[2022-10-22] MEDS ORDERED: ALTEPLASE 2 MG VIAL (CATHFLO) IA STA (14:36)
[2022-10-22] MEDS ORDERED: ALTEPLASE 10 MG in SODIUM CHLORIDE 0.9% 90 ML IA ONE (14:45)
[2022-10-22] MEDS ORDERED: ALTEPLASE 2 MG VIAL (CATHFLO) IA ONE (14:58)
[2022-10-22] MEDS: HEPARIN SOD,PORK IN 0.45% NACL 25,000 UNIT in 0.45% NACL 1 250ML.BAG IV SCH (15:03)
--- NOTE | 2022-10-22 15:05 | IR ---
EXAMINATION TYPE: IR angio extremity LT DATE OF EXAM: 10/22/2022 CLINICAL HISTORY: Lower extremity arterial occlusion TECHNIQUE: Fluoroscopy. COMPARISON: None. FINDINGS: Fluoroscopic guidance was provided during or extremity angiogram procedure performed by Dr Catrachita Mosqueda. A total of 4.3 Minutes of fluoroscopic time was utilized during the procedure and 0 spot im ages are sent to PACS. IMPRESSION: As Above.
[2022-10-22] MEDS ORDERED: IOPAMIDOL-250 100ML BTL INTRAARTER ONE (15:09)
--- NOTE | 2022-10-22 15:16 | P.OP ---
Date of Procedure: 10/22/22 Description of Procedure: Preoperative diagnosis: Acute limb ischemia left lower extremity, superficial femoral/popliteal artery occlusion Postoperative diagnosis: Same Procedure: #1 ultrasound-guided right common femoral artery access #2 selective left lower extremity angiogram third order to the distal gonzales perficial femoral artery #3 initiation of TPA thrombolysis #4 33 minutes of monitored sedation, personal monitoring of certified RN administration with hemodynamic monitoring Surgeon: Eulalia Mosqueda D.O. EBL: Less than 10 mL IV fluids: See records Urine output: Not measured Drains: None Complications: None immediately apparent Condition: Stable to recovery Operative indication and findings: Patient is a 67-year-old male who is essentially wheelchair bound due to multiple orthopedic surgeries and missing a portion of his right femur as well as left knee issues. He states that in the past week he has had significant worsening of pain in his left foot with pain while laying down. He does have a history of a DVT in his right lower extremity and does take oral anticoagulation for this. He has not noticed any wounds or other issues of his left lower extremity. He is motor sensory intact but in significant amounts of pain and severe cyanosis of the foot. After review of the images with the patient he was offered an angiogram with attempted thrombolysis versus revascularization options. He seemingly understood the risks and benefits and wish to proceed Procedure in detail: Patient was taken to the operative suite and placed in supine position. The right groin was prepped and draped in usual sterile fashion. A pre-procedure timeout was performed, all parties are in agreement. Using ultrasound, the right common femoral artery was identified. It was found be patent and compressible without evidence of significant calcific disease. Permanent images stored. Seldinger technique was used and a micro-axis utilized access the right common femoral artery. A 5-Urdu sheath was placed. Catheters and wires were then used to access the left common iliac artery. An angiogram was performed revealing a widely patent common, internal and Iliac arteries. Catheters and wires were then advanced, the common femoral, profunda were widely patent. The superficial femoral artery was widely patent through the mid thigh. The catheters and wires were then directed down through the superficial femoral artery to the proximal popliteal artery and repeat imaging was performed showing abrupt occlusion of the proximal popliteal artery. There was no significant reconstitution throughout the entirety of the lower extremity. Due to this, the initial attempts for revascularization were to leave a TPA catheter therefore a 20 cm catheter was placed proximally to the occlusion after an up and over Elizabeth sheath was placed over a stiff wire. Wires were removed. The sheath was sutured in place. TPA was initiated. The plan will be to come back tomorrow for repeat evaluation
[2022-10-22 15:31] LABS: Glucose,Whole Blood 86 mg/dL (70-110)
[2022-10-22] MEDS: SODIUM CHLORIDE 0.9% 1,000 ML IV SCH (16:11)
[2022-10-22] MEDS: HYDROmorphone 0.5 MG/0.5 ML SYRINGE IVP PRN ×2 (16:53→21:32)
[2022-10-22 16:58] LABS: Basophils # (A) 0.1 k/uL (0-0.2); Basophils % (A) 1 %; Eosinophils # (A) 0.2 k/uL (0-0.7); Eosinophils % (A) 3 %; Lymphocytes # (A) 1.1 k/uL (1.0-4.8); Lymphocytes % (A) 19 %; MCH 34.7 pg (25.0-35.0); MCHC 33.7 g/dL (31.0-37.0); Macrocytosis Slight; Mean Platelet Volume 8.2; Monocytes # (A) 0.4 k/uL (0-1.0); Monocytes % (A) 8 %; Neutrophils # (A) 3.8 k/uL (1.3-7.7); Neutrophils % (A) 67 %; Platelet Count 143 k/uL (150-450); RBC 5.68 m/uL (4.30-5.90); RDW 14.7 % (11.5-15.5); WBC 5.6 k/uL (3.8-10.6)
[2022-10-22 17:29] LABS: INR 1.2 (<1.2); Prothrombin Time 12.2 sec (9.0-12.0)
[2022-10-22 17:36] LABS: HGB 19.7 gm/dL (13.0-17.5)
[2022-10-22 17:37] LABS: HCT 58.5 % (39.0-53.0)
[2022-10-22] MEDS: ALPRAZolam 1 MG TAB PO PRN (21:26)
[2022-10-22 21:46] LABS: MCH 35.3 pg (25.0-35.0); MCHC 34.4 g/dL (31.0-37.0); MCV 102.7 fL (80.0-100.0); Macrocytosis Slight; Mean Platelet Volume 7.9; Platelet Count 130 k/uL (150-450); RBC 5.55 m/uL (4.30-5.90); RDW 14.3 % (11.5-15.5); WBC 5.5 k/uL (3.8-10.6)
[2022-10-22 21:56] LABS: HGB 19.6 gm/dL (13.0-17.5)
[2022-10-23] MEDS: HYDROmorphone 1 MG/ML 1 ML SYRINGE IVP PRN ×6 (00:09→23:04)
[2022-10-23] MEDS: SODIUM CHLORIDE 0.9% 1,000 ML IV SCH ×3 (00:10→23:04)
[2022-10-23] MEDS ORDERED: ALTEPLASE 10 MG in SODIUM CHLORIDE 0.9% 90 ML IA ONE (00:44)
[2022-10-23 04:17] LABS: HGB 18.7 gm/dL (13.0-17.5); MCH 34.7 pg (25.0-35.0); MCHC 33.7 g/dL (31.0-37.0); MCV 103.1 fL (80.0-100.0); Macrocytosis Slight; Platelet Count 125 k/uL (150-450); RBC 5.37 m/uL (4.30-5.90); RDW 14.1 % (11.5-15.5); WBC 6.2 k/uL (3.8-10.6)
[2022-10-23] MEDS ORDERED: METOPROLOL SUCCINATE (ER) 100 MG TAB.ER.24H PO STA (04:27)
[2022-10-23] MEDS ORDERED: IPRATROPIUM-ALBUTEROL 3 ML NEB INHALATION PRN (04:32)
[2022-10-23] MEDS ORDERED: LOSARTAN 50 MG TAB PO STA (04:32)
[2022-10-23] MEDS ORDERED: IPRATROPIUM-ALBUTEROL 3 ML NEB ONE (04:37)
[2022-10-23 05:08] LABS: HCT 55.4 % (39.0-53.0)
[2022-10-23] MEDS ORDERED: LIDOCAINE 1% INJ 10MG/ML (5 ML VIAL-PF) SQ ONE (07:35)
[2022-10-23] MEDS ORDERED: fentaNYL (PF) 50 MCG/ML 2 ML AMP IV ONE (07:37)
[2022-10-23] MEDS ORDERED: IV FLUID CONTINUATION 1,000 ML IV ONE (07:38)
[2022-10-23] MEDS ORDERED: MIDAZOLAM 2 MG/2 ML VIAL IV ONE ×2 (07:38→17:30)
[2022-10-23] MEDS ORDERED: ALTEPLASE IA ONE (07:50)
[2022-10-23] MEDS ORDERED: SODIUM CHLORIDE 0.9% IA ONE (07:50)
--- NOTE | 2022-10-23 08:12 | P.OP ---
Date of Procedure: 10/23/22 Description of Procedure: Preoperative diagnosis: Acute limb ischemia, TPA rechecked Postoperative diagnosis: Same Procedure: Left lower extremity angiogram via existing catheter Reposition of TPA thrombolytic catheter Conscious sedation 24 minutes, direct monitoring of certified RN administration, direct hemodynamic monitoring Surgeon: Eulalia Mosqueda D.O. EBL: less than 10 mL IV fluids: See records Urine output: Not measured Drains: None Complications: None immediately apparent Condition: Stable back to ICU Operative indication and findings: Patient is a 67-year-old male who previously presented with acute limb ischemia and cyanosis of his left lower extremity. Initiation of TPA was performed and he is brought back today for TPA rechecked. Procedure in detail: The patient was taken to the special suite and placed in supine position. The previously placed catheter and right groin are prepped and draped in usual sterile fashion. A preprocedure timeout performed, all parties were in agreement. A wire was placed through the previously placed catheter. The catheter was removed. An angiogram was performed via the sheath. There was significant improvement of the blood flow through the distal superficial femoral artery as well as the popliteal artery. The anterior tibial is patent with very diminutive appearance. There is visualization of the posterior tibial and peroneal vessels in the distal calf. The occluded portion was crossed repeat distal angiogram was performed showing luminal gain. The previous catheter was replaced. Plan will be for TPA rechecked later today.
[2022-10-23] MEDS: IPRATROPIUM-ALBUTEROL 3 ML NEB INHALATION SCH ×4 (08:27→21:26)
--- NOTE | 2022-10-23 08:41 | IR ---
EXAMINATION TYPE: IR transcath infusion therapy DATE OF EXAM: 10/23/2022 COMPARISON: NONE HISTORY: Fluoroscopy time. Fluoroscopy was provided to the referring clinician.
[2022-10-23] MEDS: METOPROLOL SUCCINATE (ER) 100 MG TAB.ER.24H PO SCH (10:05)
[2022-10-23] MEDS: LOSARTAN 50 MG TAB PO SCH (10:06)
[2022-10-23 10:53] LABS: HCT 53.1 % (39.0-53.0); HGB 18.1 gm/dL (13.0-17.5); MCH 35.5 pg (25.0-35.0); MCHC 34.1 g/dL (31.0-37.0); Macrocytosis Slight; Mean Platelet Volume 8.2; Platelet Count 130 k/uL (150-450); RBC 5.11 m/uL (4.30-5.90); RDW 14.2 % (11.5-15.5); WBC 6.4 k/uL (3.8-10.6)
[2022-10-23 11:09] LABS: African American GFR (CKD) >90 (>60 ml/min/1.73 sqM); Anion Gap 4 mmol/L; Blood Urea Nitrogen 13 mg/dL (9-20); Calcium 8.4 mg/dL (8.4-10.2); Carbon Dioxide 22 mmol/L (22-30); Chloride 105 mmol/L (98-107); Glucose 93 mg/dL (74-99); Non-African American GFR(CKD) >90 (>60 ml/min/1.73 sqM); Sodium 131 mmol/L (137-145)
[2022-10-23 11:23] LABS: Potassium 4.2 mmol/L (3.5-5.1)
--- NOTE | 2022-10-23 11:53 | P.CNPUL ---
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 Patient is wheelchair bound. He presented to the emergency room yesterday with left lower extremity pain. CT angiogram revealed scattered mild atherosclerotic calcification but with distal left SFA occlusion at the level of the abductor hiatus. No subsequent distal arterial flow is seen. 1.5 cm noncalcified gallstone. Right hip abnormality with prior surgery and large effusions/synovitis. Cannot exclude underlying infection. He was taken to the [facility] yesterday by vascular surgery and was had undergone a ultrasound-guided right femoral artery access, selective left lower extremity angiogram third order to the distal superficial femoral artery with initiation of TPA thrombolysis. He was admitted to the intensive care unit for closer monitoring. Early this morning he did go back to the [facility] for left lower extremity angiogram via the existing catheter with reposition of TPA thrombolytic catheter. He is seen today in consultation. He is awake and alert in no acute distress. He is resting flat in bed. TPA infusion continues at 1 mg per hour. He also has heparin drip at 500 units per hour. Normal saline at 100 ML's per hour. The plan is to return to the [facility] again later today. White count 6.4. Hemoglobin 18.1. Platelets 130,000. Fibrinogen 295. Sodium 131. Potassium 4.2. BUN 13. Creatinine 0.81. Bicarb 22. He remains on bronchodilators. Xanax for anxiety. Dilaudid for pain control. Review of Systems REVIEW OF SYSTEMS: CONSTITUTIONAL: Denies any recent significant weight loss or weight gain. EYES: Denies change in vision. EARS, NOSE, MOUTH, THROAT: Denies headaches, denies sore throat. CARDIOVASCULAR: Denies chest pain, palpitations or syncopal episodes. RESPIRATORY: Denies shortness of breath, cough, congestion or hemoptysis. GASTROINTESTINAL: Denies change in appetite, denies abdominal pain GENITOURINARY: Denies hematuria, denies infections. MUSKULOSKELETAL: Positive for left lower extremity pain. INTEGUMENTARY: Denies rash, denies eczema. NEUROLOGICAL: Denies recent memory loss, no recent seizure activity. PSYCHIATRIC: Denies anxiety, denies depression. HEMATOLOGIC/LYMPHATIC: Denies anemia, denies enlarged lymph nodes. Past Medical History Past Medical History: Deep Vein Thrombosis (DVT), GERD/Reflux, Hyperlipidemia, Hypertension, Thyroid Disorder Additional Past Medical History / Comment(s): RIGHT HIP DYSPLASIA, ANEMIA, CHRONIC INFECTION AND ELEVATED INFLAMMATORY MARKERS, DVT History of Any Multi-Drug Resistant Organisms: MRSA Date of last positivie culture/infection: UNKNOWN MDRO Source:: RIGHT HIP Past Surgical History: Hernia Repair, Joint Replacement, Orthopedic Surgery, Tonsillectomy Additional Past Surgical History / Comment(s): RT HIP REPLACED MULTIPLE TIMES SINCE THE AGE OF 13-ARTIFICAL HIP HAS SINCE BEEN REMOVED DUE TO ONGOING INFECTION AND PT USES A WHEELCHAIR, LEFT KNEE POLYPS UNDER SKIN REMOVED, LEFT WRIST SURG CHILD Past Anesthesia/Blood Transfusion Reactions: No Reported Reaction Past Psychological History: Anxiety Smoking Status: Current every day smoker Past Alcohol Use History: Daily Past Drug Use History: None Reported - Past Family History Father Family Medical History: Cancer Additional Family Medical History / Comment(s): COLO-RECTAL Medications and Allergies Home Medications Medication Instructions Recorded Confirmed Type tiZANidine HCL [Zanaflex] 4 mg PO DAILY 12/24/18 10/22/22 History traZODone HCL [Desyrel] 50 - 100 mg PO HS PRN 12/25/21 10/22/22 History ALPRAZolam [Xanax] 0.5 mg PO TID PRN 10/22/22 10/22/22 History Albuterol Sulfate [Ventolin HFA] 2 puff INHALATION RT-Q6H PRN 10/22/22 10/22/22 History Apixaban [Eliquis] 5 mg PO BID 10/22/22 10/22/22 History Cholecalciferol [Vitamin D3 (25 25 mcg PO DAILY 10/22/22 10/22/22 History Mcg = 1000 Iu)] Doxycycline Hyclate 200 mg PO DAILY 10/22/22 10/22/22 History Fenofibrate [Lofibra] 160 mg PO DAILY 10/22/22 10/22/22 History Levothyroxine Sodium [Synthroid] 50 mcg PO DAILY 10/22/22 10/22/22 History icosapent ethyL [Icosapent Ethyl] 2 gm PO DAILY 10/22/22 10/22/22 History lisinopriL 40 mg PO DAILY 10/22/22 10/22/22 History Allergies Allergy/AdvReac Type Severity Reaction Status Date / Time codeine Allergy Itching Verified 10/22/22 14:00 onion Allergy Nausea & Verified 10/22/22 14:00 Vomiting & Diarrhea Quinolones Allergy Unknown Verified 10/22/22 14:00 simvastatin [From Zocor] Allergy Unknown Verified 10/22/22 14:00 Physical Exam Vitals: Vital Signs Temp Pulse Resp BP Pulse Ox 10/23/22 10:00 86 12 130/94 93 L 10/23/22 09:00 98.2 F 84 22 145/110 95 10/23/22 06:00 104 H 12 159/122 94 L 10/23/22 05:00 106 H 5 L 160/118 93 L 10/23/22 04:50 114 H 10/23/22 04:40 101 H 10/23/22 04:00 98.1 F 105 H 27 H 153/113 95 10/23/22 03:01 104 H 12 157/105 90 L 10/23/22 02:00 99 15 156/104 93 L 10/23/22 01:00 98 22 160/107 95 10/23/22 00:00 99.3 F 95 17 158/109 90 L 10/22/22 23:24 96 14 149/103 93 L 10/22/22 23:00 98 19 141/104 95 10/22/22 22:00 93 8 L 167/112 92 L 10/22/22 21:00 98 17 152/105 93 L 10/22/22 20:00 91 18 133/98 94 L 10/22/22 19:00 93 16 120/85 94 L 10/22/22 18:30 93 16 127/84 92 L 10/22/22 18:00 94 18 127/85 94 L 10/22/22 17:30 90 28 H 106/93 94 L 10/22/22 17:00 96 16 127/89 94 L 10/22/22 16:30 90 14 136/98 95 10/22/22 16:15 95 19 151/95 95 10/22/22 16:00 98 14 138/102 94 L 10/22/22 15:45 89 17 136/106 95 10/22/22 15:30 97.7 F 93 18 145/101 95 10/22/22 14:00 87 18 128/97 96 10/22/22 12:47 85 18 142/95 98 Intake and Output 10/22/22 10/23/22 10/23/22 22:59 06:59 14:59 Intake Total 858 920 220 Output Total 520 270 Balance 338 650 220 Intake: IV 248 920 220 Alteplase 10 mg In Sodium 30 80 20 Chloride 0.9% 90 ml @ 1 MG/HR 10 mls/hr IA .Q10H [facility] Rx#:[id number] Heparin Sod,Pork in 0.45% 15 40 NaCl 25,000 unit In 0.45 % NaCl 1 250ml.bag @ 18 UNITS/KG/HR 20.412 mls/hr IV .[id number] [facility] Rx#: [id number] Sodium Chloride 0.9% 1, 200 800 200 000 ml @ 100 mls/hr IV . Q10H [facility] Rx#:[id number] Intake, IV Titration 370 Amount Alteplase 10 mg In Sodium 40 Chloride 0.9% 90 ml @ 1 MG/HR 10 mls/hr IA .Q10H [facility] Rx#:[id number] Heparin Sod,Pork in 0.45% 20 NaCl 25,000 unit In 0.45 % NaCl 1 250ml.bag @ 5 mls/hr IV .Q24H [facility] Rx#: [id number] Sodium Chloride 0.9% 1, 310 000 ml @ 100 mls/hr IV . Q10H [facility] Rx#:[id number] Oral 240 Output: Urine 520 270 Other: Voiding Method Urinal Urinal Urinal Weight 113.398 kg 96.3 kg GENERAL EXAM: Alert, pleasant 67-year-old male, resting comfortably in bed, on room air, comfortable in no apparent distress. HEAD: Normocephalic. EYES: Normal reaction of pupils, equal size. NOSE: Clear with pink turbinates. THROAT: No erythema or exudates. NECK: No masses, no JVD. CHEST: No chest wall deformity. LUNGS: Equal air entry with no crackles, wheeze, rhonchi or dullness. CVS: S1 and S2 normal with no audible murmur, regular rhythm. ABDOMEN: No hepatosplenomegaly, normal bowel sounds, no guarding or rigidity. SPINE: No scoliosis or deformity SKIN: No rashes CENTRAL NERVOUS SYSTEM: No focal deficits, tone is normal in all 4 extremities. EXTREMITIES: Catheters to the bilateral groins stable, slight oozing on the right. Doppler pulses. There is no peripheral edema. Peripheral pulses are intact. Results - Laboratory Findings CBC and BMP: 10/23/22 10:39 10/23/22 10:39 PT/INR, D-dimer PT 12.2 sec (9.0-12.0) H 10/22/22 16:10 INR 1.2 (<1.2) H 10/22/22 16:10 Abnormal lab findings: Abnormal Labs 10/22/22 10/22/22 10/22/22 10:36 10:36 11:35 Hgb 20.1 H* Hct 58.4 H* MCV 103.0 H MCH 35.3 H Plt Count PT INR APTT 21.3 L Sodium 132 L 10/22/22 10/22/22 10/22/22 16:10 16:10 21:01 Hgb 19.7 H* 19.6 H* Hct 58.5 H* 57.0 H MCV 103.0 H 102.7 H MCH 35.3 H Plt Count 143 L 130 L PT 12.2 H INR 1.2 H APTT Sodium 10/23/22 10/23/22 10/23/22 03:53 10:39 10:39 Hgb 18.7 H 18.1 H Hct 55.4 H 53.1 H MCV 103.1 H 104.0 H MCH 35.5 H Plt Count 125 L 130 L PT INR APTT Sodium 131 L Assessment and Plan Assessment: Acute left lower extremity pain with ischemia found to have superficial femoral artery occlusion. Requiring TPA infusion. History of previous right lower extremity DVT maintained on Eliquis History of right hip dysplasia requiring multiple surgeries since age of 13, wheelchair bound Hypertension Hyperlipidemia Hypothyroidism Anxiety Chronic and ongoing tobacco dependence Daily alcohol use Plan: The patient was seen and evaluated Medications and labs reviewed Currently stable and on room air Remains on bronchodilators Continued on TPA at 1 mg per hour Plans for return to the CVL again later today for evaluation Continue to monitor closely here in the intensive care unit Educated regarding the importance of complete smoking cessation We will continue to follow and make further recommendations based on his clinical status I have personally seen and examined the patient, performed the documentation and the assessment and plan as written. Number of minutes spent on the visit: 20.
[2022-10-23 14:50] LABS: HCT 52.7 % (39.0-53.0); HGB 17.5 gm/dL (13.0-17.5); MCH 34.5 pg (25.0-35.0); MCHC 33.3 g/dL (31.0-37.0); MCV 103.8 fL (80.0-100.0); Macrocytosis Slight; Platelet Count 109 k/uL (150-450); RBC 5.08 m/uL (4.30-5.90); RDW 14.3 % (11.5-15.5); WBC 5.9 k/uL (3.8-10.6)
[2022-10-23] MEDS ORDERED: LIDOCAINE 1% INJ 10MG/ML (20 ML MDV) ONE (15:23)
[2022-10-23] MEDS: MIDAZOLAM 2 MG/2 ML VIAL IV ONE ×3 (15:40→18:08)
[2022-10-23] MEDS ORDERED: IV FLUID CONTINUATION 950 ML IV ONE (15:40)
[2022-10-23] MEDS ORDERED: HEPARIN SODIUM 1,000 UN/ML (10ML VL) ONE (15:57)
[2022-10-23] MEDS: HEPARIN SODIUM 1,000 UN/ML (10ML VL) IV ONE ×2 (15:58→16:36)
[2022-10-23] MEDS ORDERED: NITROGLYCERIN 1000MCG/10ML SYRINGE INTRAARTER ONE (16:17)
[2022-10-23] MEDS: HEPARIN SOD,PORK IN 0.45% NACL 25,000 UNIT in 0.45% NACL 1 250ML.BAG IV SCH (16:37)
[2022-10-23] MEDS: NITROGLYCERIN 1000MCG/10ML SYRINGE INTRAARTER ONE ×3 (16:41→17:13)
[2022-10-23] MEDS ORDERED: fentaNYL (PF) 50 MCG/ML 2 ML AMP ONE (16:51)
[2022-10-23] MEDS: fentaNYL (PF) 50 MCG/ML 2 ML AMP IV ONE ×2 (16:52→17:52)
[2022-10-23] MEDS ORDERED: IOPAMIDOL-250 100ML BTL INTRAARTER ONE ×2 (18:08)
--- NOTE | 2022-10-23 18:21 | P.OP ---
Date of Procedure: 10/23/22 Preoperative Diagnosis: Critical limb ischemia left lower extremity S/P thrombolysis of the left femoral, popliteal and tibial arteries Occlusion of the left posterior tibial, anterior tibial and peroneal arteries Postoperative Diagnosis: Same Procedure(s) Performed: Selective left lower extremity angiogram via existing catheter Percutaneous balloon angioplasty of the left peroneal artery Percutaneous balloon angioplasty of the left posterior tibial artery Ultrasound guided right femoral artery access Percutaneous closure of the right femoral artery access Conscious sedation x 150 minutes Anesthesia: local Surgeon: Austin Curry Estimated Blood Loss (ml): 15 Pathology: none sent Condition: stable Disposition: ICU Indications for Procedure: 67 year old male with left lower extremity critical limb ischemia with previous left lower extremity thrombolysis presents back to the [facility] for recheck. Operative Findings: Occluded left peroneal artery with reconstitution at the mid tibial region Occluded left posterior tibial and anterior tibial artery Description of Procedure: After written and informed consent was obtained and all risks, benefits and complications were described the patient was brought to the catholic priest and laid in a supine position. The area of the right groin was prepped and draped in the usual sterile fashion. Utilizing the existing catheter an angiogram was obtained of the left lower extremity popliteal and tibial arteries. There was occlusion noted at the peroneal, posterior tibial artery, and anterior tibial artery. An .035 glidewire was placed across the peroneal artery with the assistance of a crossing catheter and distal angiogram was obtained which demonstrated good intraluminal access. A 014 glidewire advantage was then placed and serial balloon angioplasty with a 2mm, then 2.5mm and 3mm balloons. The vessel continued to collapse and nitro was placed with some improvement. A [id number] drug eluding balloon was then used and angiogram was obtained demonstrating improved flow and 90% improvement of the lumen with filling to the foot. The glidewire was then removed and the posterior tibial artery was crossed and angiogram demonstrated good intraluminal access. A balloon angioplasty was then performed throughout with a 3mm balloon. The balloon was attempted to be removed but the sheath was collapsing and the wire, balloon and sheath needed to be removed. Pressure was then held and utilizing ultrasound the femoral artery was accessed below and retrograde angiogram was performed without any extravasation. An up and over wire was placed followed by a RBPolly c atheter and angiogram was obtained of the left lower extremity with good improvement of flow to the foot through the peroneal. All wires, catheters were removed and a short 6f sheath was placed and a vascade was placed for hemostasis. The patient tolerated the procedure well and was sent to the ICU in stable condition.
[2022-10-23 18:44] LABS: Glucose,Whole Blood 92 mg/dL (70-110)
[2022-10-23 21:36] LABS: HCT 51.6 % (39.0-53.0); HGB 16.9 gm/dL (13.0-17.5); MCH 34.4 pg (25.0-35.0); MCHC 32.8 g/dL (31.0-37.0); MCV 104.8 fL (80.0-100.0); Macrocytosis Moderate; Platelet Count 114 k/uL (150-450); RBC 4.92 m/uL (4.30-5.90); RDW 14.4 % (11.5-15.5)
--- NOTE | 2022-10-23 23:05 | HP ---
HISTORY AND PHYSICAL CHIEF COMPLAINT: Pain in the left leg. HISTORY OF PRESENT ILLNESS: This is another admission for this 67-year-old white male. He started noticing pain in his left leg on and off for about a week. Gradually, it became more severe, and he came to the emergency room, where he obviously had decreased perfusion of the foot and was determined to have superficial femoral artery occlusion, and he was taken to the catheterization lab. REVIEW OF SYSTEMS: He denied any fever, chills, chest pain, palpitations, urinary incontinence, etc. Past medical history, family history, and personal and social histories reveal that he has had a longstanding history of problems with his right hip, where he had a hip replacement, which subsequently became infected and eventually progressed to the point where no surgical intervention for correction was possible, and he became wheelchair- bound. He has been fairly healthy otherwise except having an issue with hypertension, hyperlipidemia, and he does smoke. ALLERGIES: He is allergic to: 1. Statins. 2. Codeine. 3. Xylocaine. MEDICATIONS: Have included: 1. Xanax. 2. Albuterol MDI. 3. Fenofibrate. 4. Lisinopril. 5. Levothyroxine. 6. Eliquis. 7. Iron. 8. Symbicort. 9. Vascepa. 10.Trazodone. 11.Tizanidine. 12.Omeprazole. SOCIAL HISTORY: He drinks occasionally, but continues to smoke. PHYSICAL EXAMINATION: VITAL SIGNS: Blood pressure is 158/106 with a pulse of 91, respirations of 30, and he is afebrile. GENERAL: He appeared to be well developed, well nourished, and uncomfortable. SKIN: Color is normal. Skin is warm and dry. HEAD, EARS, EYES, NOSE, AND MOUTH: Normal. CHEST: Clear. CARDIAC: Demonstrates tachycardia. ABDOMEN: Soft and nontender. EXTREMITIES: Reveal the left leg to be perfused distally, but the capillary refill is slightly slow. NEUROLOGIC: He is intact. DIAGNOSES: He is admitted to the hospital with diagnoses of: 1. Superficial femoral artery occlusion of the left leg. 2. History of hypertension. 3. Chronic obstructive pulmonary disease. 4. History of atherosclerotic cardiovascular disease. 5. Destruction of the right hip following osteomyelitis. PLAN: 1. Bedrest. 2. IV fluids. 3. Analgesics. 4. Follow with Vascular Surgery. MMODL / IJN: [id number] /
--- NOTE | 2022-10-23 23:11 | PN ---
PROGRESS NOTE DATE OF SERVICE: 10/23/2022 CHIEF COMPLAINT: Ischemia of the left lower extremity. HISTORY OF PRESENT ILLNESS: This gentleman is having a lot of discomfort with pain in the leg and in his back. He just got back from a repeat study, which shows a reasonable perfusion of the lower leg and foot. PHYSICAL EXAMINATION: VITAL SIGNS: Blood pressure is 152/100 with a pulse of 90, respirations of 32. GENERAL: He is uncomfortable, but intact. SKIN: Color is good. HEAD, EARS, EYES, NOSE, MOUTH, AND THROAT: Normal. CHEST: Clear. CARDIAC: Normal. EXTREMITIES: There is good capillary refill in the foot, and Doppler is picking up dorsalis pedis pulses. IMPRESSION: 1. Ischemia in the left lower extremity. 2. History of osteomyelitis of the right hip. 3. History of hypertension. 4. Chronic obstructive pulmonary disease. PLAN: Continue to follow with Vascular Surgery. MMODL / IJN: [id number] /
[2022-10-24] MEDS: HYDROmorphone 0.5 MG/0.5 ML SYRINGE IVP PRN ×5 (03:03→23:56)
[2022-10-24 03:58] LABS: HCT 48.3 % (39.0-53.0); HGB 16.1 gm/dL (13.0-17.5); MCH 34.8 pg (25.0-35.0); MCHC 33.3 g/dL (31.0-37.0); MCV 104.4 fL (80.0-100.0); Macrocytosis Moderate; Mean Platelet Volume 8.1; Platelet Count 109 k/uL (150-450); RBC 4.63 m/uL (4.30-5.90); RDW 14.4 % (11.5-15.5); WBC 6.4 k/uL (3.8-10.6)
[2022-10-24 04:07] LABS: ALT 14 U/L (4-49); AST 25 U/L (17-59); African American GFR (CKD) >90 (>60 ml/min/1.73 sqM); Albumin 2.6 g/dL (3.5-5.0); Alkaline Phosphatase 64 U/L (38-126); Anion Gap 3 mmol/L; Blood Urea Nitrogen 10 mg/dL (9-20); Carbon Dioxide 22 mmol/L (22-30); Chloride 106 mmol/L (98-107); Glucose 104 mg/dL (74-99); Non-African American GFR(CKD) >90 (>60 ml/min/1.73 sqM); Potassium 4.1 mmol/L (3.5-5.1); Sodium 131 mmol/L (137-145)
[2022-10-24] MEDS ORDERED: HEPARIN SODIUM 1,000 UN/ML (10ML VL) IV PRN (07:25)
[2022-10-24] MEDS: HEPARIN SOD,PORK IN 0.45% NACL 25,000 UNIT in 0.45% NACL 1 250ML.BAG IV SCH ×2 (08:18→23:56)
[2022-10-24] MEDS: METOPROLOL SUCCINATE (ER) 100 MG TAB.ER.24H PO SCH (08:19)
[2022-10-24] MEDS: SODIUM CHLORIDE 0.9% 1,000 ML IV SCH ×2 (08:19→18:43)
[2022-10-24] MEDS: LOSARTAN 50 MG TAB PO SCH (08:19)
[2022-10-24] MEDS: IPRATROPIUM-ALBUTEROL 3 ML NEB INHALATION SCH ×4 (08:25→20:55)
--- NOTE | 2022-10-24 08:32 | IR ---
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 Fluoroscopy was provided to the referring clinician.
[2022-10-24 09:32] LABS: Basophils % (A) 0 %; Eosinophils # (A) 0.1 k/uL (0-0.7); Eosinophils % (A) 2 %; HCT 48.8 % (39.0-53.0); HGB 16.2 gm/dL (13.0-17.5); Lymphocytes # (A) 0.3 k/uL (1.0-4.8); Lymphocytes % (A) 5 %; MCH 34.6 pg (25.0-35.0); MCHC 33.2 g/dL (31.0-37.0); MCV 104.3 fL (80.0-100.0); Macrocytosis Moderate; Mean Platelet Volume 7.9; Monocytes # (A) 0.2 k/uL (0-1.0); Monocytes % (A) 4 %; Neutrophils # (A) 5.1 k/uL (1.3-7.7); Neutrophils % (A) 88 %; Platelet Count 103 k/uL (150-450); RBC 4.67 m/uL (4.30-5.90); RDW 14.4 % (11.5-15.5); WBC 5.8 k/uL (3.8-10.6)
--- NOTE | 2022-10-24 09:38 | P.PN ---
Subjective Progress Note Date: 10/24/22 Principal diagnosis: Left lower extremity acute ischemia 67-year-old male who was admitted with acute left lower extremity ischemia underwent a left lower angiogram on 10/22/2022 with initiation of TPA thromboliasis, patient was then admitted to the ICU overnight. Yesterday mor estela he went back for TPA recheck with some improvement in the blood flow, however continued with TPA and patient underwent a recheck yesterday evening. He underwent left lower extremity angiogram, balloon angioplasty of the left peroneal artery, left posterior tibial artery with significant improvement. Patient was sent back to the ICU in stable condition. He states left lower extremity pain is significantly improved. Perfusion significantly improved with pink warm skin. He denies any shortness of breath, chest pain, abdominal pain, nausea or vomiting. Vital signs: temperature 98.6, heart rate 92, respiratory rate 18, blood pressure 137/87, oxygen saturation 96% on room air. Today's labs WBC 6.4 hemoglobin 16 platelet count 109,000 fibrinogen 371 sodium 131 potassium 4.1 BUN 10 creatinine 0.7, glucose 104. Patient is wheelchair bound due to right hip dysplasia and multiple surgeries. Objective - Vital Signs Vital signs: Vital Signs Temp 98.6 F 10/24/22 04:00 Pulse 92 10/24/22 07:00 Resp 18 10/24/22 07:00 BP 137/87 10/24/22 07:00 Pulse Ox 96 10/24/22 07:00 FiO2 Intake & Output 10/23/22 10/24/22 10/24/22 18:59 06:59 18:59 Intake Total 1350 1200 Output Total 550 1000 Balance 800 200 Weight 97.9 kg Intake: IV 1350 1200 Alteplase 10 mg In Sodium 50 Chloride 0.9% 90 ml @ 1 MG/HR 10 mls/hr IA .Q10H [facility] Rx#:[id number] Sodium Chloride 0.9% 1, 700 1200 000 ml @ 100 mls/hr IV . Q10H [facility] Rx#:[id number] Output: Urine 550 1000 Other: Voiding Method Urinal Urinal # Voids 1 - Exam General appearance: The patient is alert, oriented, appears in no acute distress. HET: Head is normocephalic and atraumatic. Pupils are equal and reactive. Neck: Supple. Heart: Regular. Lungs: Equal expansion, normal respiratory effort. Abdomen: Soft, nontender, nondistended. Extremities: Normal skin color and turgor. Right groin with ecchymosis, soft, no active bleeding, pressure dressing in place. Left lower extremity pain, warm to the touch, palpable DP pulse. Neurological: No focal deficits, alert and oriented 3. - Labs CBC & Chem 7: 10/24/22 09:10 10/24/22 03:34 Labs: Abnormal Lab Results - Last 24 Hours (Table) 10/23/22 10/23/22 10/23/22 Range/Units 10:39 10:39 14:11 Hgb 18.1 H (13.0-17.5) gm/dL Hct 53.1 H (39.0-53.0) % MCV 104.0 H 103.8 H (80.0-100.0) fL MCH 35.5 H (25.0-35.0) pg Plt Count 130 L 109 L (150-450) k/uL Sodium 131 L (137-145) mmol/L Glucose (74-99) mg/dL Calcium (8.4-10.2) mg/dL Total Protein (6.3-8.2) g/dL Albumin (3.5-5.0) g/dL 10/23/22 10/24/22 10/24/22 Range/Units 21:12 03:34 03:34 Hgb (13.0-17.5) gm/dL Hct (39.0-53.0) % MCV 104.8 H 104.4 H (80.0-100.0) fL MCH (25.0-35.0) pg Plt Count 114 L 109 L (150-450) k/uL Sodium 131 L (137-145) mmol/L Glucose 104 H (74-99) mg/dL Calcium 8.0 L (8.4-10.2) mg/dL Total Protein 5.0 L (6.3-8.2) g/dL Albumin 2.6 L (3.5-5.0) g/dL Assessment and Plan Assessment: 1. Left lower extremity acute critical limb ischemia 2. Occlusion of left posterior tibial, anterior tibial and peroneal arteries status post left lower extremity angiogram with TPA thromboliasis, percutaneous balloon angioplasty of the left peroneal artery, left posterior tibial artery with right femoral closure device 3. Left lower extremity pain 4. COPD 5. History of right lower extremity DVT on Eliquis 6. Nicotine abuse, 1 pack per day smoker 7. Non-ambulatory, wheelchair-bound due to right hip dysplasia requiring multiple surgeries Plan: 1. Heart healthy diet 2. Restart heparin drip, no bolus 3. CT angiogram chest ordered 4. EKG ordered 5. Echocardiogram ordered to evaluate for coronary artery disease 6. Medical management per primary medicine team 7. May increase activity 8. Counseled on tobacco cessation 9. Further recommendations forthcoming per vascular surgeon The impression and plan of care has been dictated as directed. I performed a history and examination of this patient, discussed the same with the dictator. I agree with the dictator's note ,documented as a scribe. Any additional findings or plans will be noted.
[2022-10-24 09:51] LABS: INR 1.1 (<1.2); Partial Thromboplastin Time 30.2 sec (22.0-30.0); Prothrombin Time 11.3 sec (9.0-12.0)
--- NOTE | 2022-10-24 10:43 | CA ---
Transthoracic Echo Report Name: Demetrius Hudson Age: 67 Gender: M : 1955 Exam Date: 10/24/2022 08:27 Exam Location: [place] [facility] Ht (in): 71 Wt (lb): 215 Ordering Physician: Lucia Pham Attending/Referring Phys: [facility] Cookie Bear, BRIDGET Procedure CPT: Indications: PAD Cardiac Hx: Technical Quality: Technically difficult study Contrast 1: Lumason Total Dose (mL): 5 Contrast 2: Total Dose (mL): MEASUREMENTS (Male / Female) Normal Values 2D ECHO RV Internal Dim ED PLAX 2.9 cm LA Volume 29.3 cm??? 18 - 58 / 22 - 52 cm??? DOPPLER AV Peak Velocity 145.7 cm/s AV Peak Gradient 8.5 mmHg AV Mean Velocity 91.3 cm/s AV Mean Gradient 3.9 mmHg AV Velocity Time Integral 21.5 cm LVOT Peak Velocity 108.6 cm/s LVOT Peak Gradient 4.7 mmHg LVOT Velocity Time Integral 22.3 cm MV Area PHT 3.4 cm??? Mitral E Point Velocity 72.5 cm/s Mitral A Point Velocity 90.1 cm/s Mitral E to A Ratio 0.8 MV Deceleration Time 220.0 ms TR Peak Velocity 190.1 cm/s TR Peak Gradient 14.5 mmHg Right Ventricular Systolic Press 19.5 mmHg FINDINGS Left Ventricle Hyperdynamic left ventricle was EF of 65-70% Right Ventricle Normal right ventricular size and function. Right ventricular systolic pressure within normal limits. Right Atrium Right atrium not well visualized. Left Atrium Normal left atrial size. Mitral Valve No mitral stenosis, regurgitation or prolapse. Aortic Valve No aortic valve stenosis or regurgitation. Tricuspid Valve Mild tricuspid regurgitation. Pulmonic Valve Pulmonic valve not well visualized. Pericardium No pericardial effusion. Aorta Aortic root and proximal ascending aorta not well visualized. CONCLUSIONS Hyperdynamic left ventricle was EF of 65-70%. Normal RV dimension and systolic function. Normal pulmonary artery systolic pressure Normal intracardiac valves No evidence of pericardial effusion Previewed by: Dr. Kulwinder Davis MD (Electronically Signed) Final Date: 24 October 2022 10:42
--- NOTE | 2022-10-24 11:31 | P.PN ---
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 Patient is wheelchair bound. He presented to the emergency room yesterday with left lower extremity pain. CT angiogram revealed scattered mild atherosclerotic calcification but with distal left SFA occlusion at the level of the abductor hiatus. No subsequent distal arterial flow is seen. 1.5 cm noncalcified gallstone. Right hip abnormality with prior surgery and large effusions/synovitis. Cannot exclude underlying inf ection. He was taken to [facility] yesterday by vascular surgery and was had undergone a ultrasound-guided right femoral artery access, selective left lower extremity angiogram third order to the distal superficial femoral artery with initiation of TPA thrombolysis. He was admitted to the intensive care unit for closer monitoring. Early this morning he did go back to [facility] for left lower extremity angiogram via the existing catheter with reposition of TPA thrombolytic catheter. He is seen today in consultation. He is awake and alert in no acute distress. He is resting flat in bed. TPA infusion continues at 1 mg per hour. He also has heparin drip at 500 units per hour. Normal saline at 100 ML's per hour. The plan is to return to the [facility] again later today. White count 6.4. Hemoglobin 18.1. Platelets 130,000. Fibrinogen 295. Sodium 131. Potassium 4.2. BUN 13. Creatinine 0.81. Bicarb 22. He remains on bronchodilators. Xanax for anxiety. Dilaudid for pain control. The patient is seen today 10/24/2022 in follow-up in the intensive care unit. He is awake and alert in no acute distress. Currently maintaining O2 saturations in the 90s on room air. He has normal saline at 100 ML's per hour. Remains on a heparin drip. Yesterday he did undergo a selective left lower extremity angiogram via the existing catheter, percutaneous balloon angioplasty of the left peroneal artery, PTBA of the left posterior tibial artery, percutaneous closure of the right femoral artery access. He continues with pulses in the left lower extremity. Echocardiogram revealed hyperdynamic left ventricle with ejection fraction of 65-70%. Normal RV function and pressures. No valvular heart disease. No pericardial effusion. White count 5.8. Hemoglobin 16.2. Platelets 103. Sodium 131. Potassium 4.1. Bicarb 20. BUN 10. Creatinine 0.74. Glucose 104. Objective - Vital Signs Vital signs: Vital Signs Temp 98.5 F 10/24/22 08:00 Pulse 83 10/24/22 11:09 Resp 15 10/24/22 11:09 BP 114/81 10/24/22 10:00 Pulse Ox 97 10/24/22 10:00 FiO2 Intake & Output 10/23/22 10/24/22 10/24/22 18:59 06:59 18:59 Intake Total 1350 1200 600 Output Total 550 1000 325 Balance 800 200 275 Weight 97.9 kg Intake: IV 1350 1200 400 Alteplase 10 mg In Sodium 50 Chloride 0.9% 90 ml @ 1 MG/HR 10 mls/hr IA .Q10H ONE Rx#:[id number] Sodium Chloride 0.9% 1, 700 1200 400 000 ml @ 100 mls/hr IV . Q10H [facility] Rx#:[id number] Oral 200 Output: Urine 550 1000 325 Other: Voiding Method Urinal Urinal Urinal # Voids 1 1 - Exam GENERAL EXAM: Alert, pleasant 67-year-old male, on room air, comfortable in no apparent distress. HEAD: Normocephalic. EYES: Normal reaction of pupils, equal size. NOSE: Clear with pink turbinates. THROAT: No erythema or exudates. NECK: No masses, no JVD. CHEST: No chest wall deformity. LUNGS: Equal air entry with no crackles, wheeze, rhonchi or dullness. CVS: S1 and S2 normal with no audible murmur, regular rhythm. ABDOMEN: No hepatosplenomegaly, normal bowel sounds, no guarding or rigidity. SPINE: No scoliosis or deformity SKIN: No rashes CENTRAL NERVOUS SYSTEM: No focal deficits, tone is normal in all 4 extremities. EXTREMITIES: Perclose to right groin. There is no peripheral edema. Peripheral pulses are intact. - Labs CBC & Chem 7: 10/24/22 09:10 10/24/22 03:34 Labs: Abnormal Lab Results - Last 24 Hours (Table) 10/23/22 10/23/22 10/23/22 Range/Units 10:39 14:11 21:12 MCV 103.8 H 104.8 H (80.0-100.0) fL Plt Count 109 L 114 L (150-450) k/uL Lymphocytes # (1.0-4.8) k/uL APTT (22.0-30.0) sec Sodium 131 L (137-145) mmol/L Glucose (74-99) mg/dL Calcium (8.4-10.2) mg/dL Total Protein (6.3-8.2) g/dL Albumin (3.5-5.0) g/dL 10/24/22 10/24/22 10/24/22 Range/Units 03:34 03:34 09:10 MCV 104.4 H 104.3 H (80.0-100.0) fL Plt Count 109 L 103 L (150-450) k/uL Lymphocytes # 0.3 L (1.0-4.8) k/uL APTT (22.0-30.0) sec Sodium 131 L (137-145) mmol/L Glucose 104 H (74-99) mg/dL Calcium 8.0 L (8.4-10.2) mg/dL Total Protein 5.0 L (6.3-8.2) g/dL Albumin 2.6 L (3.5-5.0) g/dL 10/24/22 Range/Units 09:10 MCV (80.0-100.0) fL Plt Count (150-450) k/uL Lymphocytes # (1.0-4.8) k/uL APTT 30.2 H (22.0-30.0) sec Sodium (137-145) mmol/L Glucose (74-99) mg/dL Calcium (8.4-10.2) mg/dL Total Protein (6.3-8.2) g/dL Albumin (3.5-5.0) g/dL Assessment and Plan Assessment: Acute left lower extremity pain with ischemia found to have superficial femoral artery occlusion. Required TPA infusion. Catheters removed on 10/23/2021 History of previous right lower extremity DVT maintained on Eliquis History of right hip dysplasia requiring multiple surgeries since age of 13, wheelchair bound Hypertension Hyperlipidemia Hypothyroidism Anxiety Chronic and ongoing tobacco dependence Daily alcohol use Plan: The patient was seen and evaluated Echocardiogram, medications and labs reviewed Currently stable and on room air Remains on bronchodilators Could transfer out of the ICU once cleared by vascular surgery We will continue to follow I have personally seen and examined the patient, performed the documentation and the assessment and plan as written. Number of minutes spent on the visit: 10.
[2022-10-24] MEDS: ALPRAZolam 1 MG TAB PO PRN (16:51)
--- NOTE | 2022-10-24 18:32 | CT ---
EXAMINATION TYPE: CT angio chest CT DLP: 570.9 mGycm, Automated exposure control for dose reduction was used. DATE OF EXAM: 10/24/2022 6:17 PM COMPARISON: None CLINICAL INDICATION:Male, 67 years old with history of PAD, acute ischemia LLE; PAD. recent femoral b lockage and sx TECHNIQUE/CONTRAST: CTA scan of the thorax is performed with IV Contrast, patient injected with 100 mL of Isovue 370, pul monary embolism protocol. MIP images are created and reviewed [facility] FINDINGS: Pulmonary Artery: There is no evidence for a central filling defect within the pulmonary vasculature to suggest acute pulmonary embolism. Limited evaluation of the segmental and subsegmental branches se condary to bolus timing. The pulmonary artery is of normal size. Lungs/Pleura: No evidence of focal consolidation, pleural effusion or pneumothorax. Airway: Large airways are patent. Heart: The heart is enlarged for size. Vasculature: No evidence of aortic aneurysm. Mediastinum: No gross evidence of adenopathy. Small hiatal hernia. Musculoskeletal: No acute osseous abnormalities Soft Tissues: Unremarkable. Lower neck: No significant findings. Upper Abdomen: No significant findings. IMPRESSION: 1. Limited evaluation secondary motion, no evidence of central pulmonary embolism. Limited evaluation of the segmental and subsegmental branches. 2. Cardiomegaly with mild pulmonary vascular congestion correlate with BNP. 3. Small hiatal hernia.
[2022-10-25] MEDS: HYDROmorphone 0.5 MG/0.5 ML SYRINGE IVP PRN (03:10)
[2022-10-25] MEDS: METOPROLOL SUCCINATE (ER) 100 MG TAB.ER.24H PO SCH (07:38)
[2022-10-25] MEDS: LOSARTAN 50 MG TAB PO SCH (07:38)
[2022-10-25] MEDS: SODIUM CHLORIDE 0.9% 1,000 ML IV SCH ×2 (07:40→12:24)
[2022-10-25 07:58] LABS: Basophils % (A) 1 %; Eosinophils # (A) 0.3 k/uL (0-0.7); Eosinophils % (A) 5 %; HCT 48.5 % (39.0-53.0); HGB 16.1 gm/dL (13.0-17.5); Lymphocytes # (A) 0.8 k/uL (1.0-4.8); Lymphocytes % (A) 14 %; MCH 34.6 pg (25.0-35.0); MCHC 33.2 g/dL (31.0-37.0); MCV 104.4 fL (80.0-100.0); Macrocytosis Moderate; Mean Platelet Volume 7.8; Monocytes # (A) 0.4 k/uL (0-1.0); Monocytes % (A) 7 %; Neutrophils # (A) 3.9 k/uL (1.3-7.7); Neutrophils % (A) 71 %; Platelet Count 124 k/uL (150-450); RBC 4.65 m/uL (4.30-5.90); RDW 14.4 % (11.5-15.5); WBC 5.5 k/uL (3.8-10.6)
[2022-10-25] MEDS: IPRATROPIUM-ALBUTEROL 3 ML NEB INHALATION SCH ×3 (08:02→15:21)
[2022-10-25] MEDS: HEPARIN SOD,PORK IN 0.45% NACL 25,000 UNIT in 0.45% NACL 1 250ML.BAG IV SCH (12:25)
--- NOTE | 2022-10-25 12:36 | US ---
EXAMINATION TYPE: US venous doppler duplex LE DATE OF EXAM: 10/25/2022 9:34 AM COMPARISON: NONE CLINICAL HISTORY: 67-year-old male Hx of RLE DVT. Extensive history with vascular disease, recent occ luded left SFA, h/o right leg DVT 6 month ago and still on Eliquis, chronic swelling in legs SIDE PERFORMED: Bilateral TECHNIQUE: The lower extremity deep venous system is examined utilizing real time linear array sonog da with graded compression, doppler sonography and color-flow sonography. FINDINGS: VESSELS IMAGED: Common Femoral Vein Deep Femoral Vein Greater Saphenous Vein * Femoral Vein Popliteal Vein Small Saphenous Vein * Proximal Calf Veins (* superficial vessels) Right Leg: There are internal echoes with ready flow in the mid to lower femoral vein. These areas s how partial compressibility. The upper femoral vein also shows partial compared probability on transv erse imaging. However, there is more homogeneous and expansile appearance to internal filling defect within the mid and lower popliteal vein. Sonography: internal echoes with not fully compressible veins seen through out leg, chronic process versus acute Left Leg: Negative for DVT, patient has rigid left leg and unable to move knee to do compression carlin ges, great color flow seen IMPRESSION: 1. On the right, there is chronic DVT with thready flow throughout the femoral vein. However, there i s more homogeneous and expansile appearance to the thrombus within the popliteal vein. Unable to excl ude some degree of acute DVT progression in the popliteal vein. 2. No visualized DVT in the left lower extremity.
--- NOTE | 2022-10-25 12:41 | P.PN ---
Subjective Progress Note Date: 10/25/22 Principal diagnosis: Left lower extremity acute ischemia Patient is seen and examined as a follow-up. He was transferred to the cardiac stepdown unit from ICU yesterday. He has status post left lower extremity angiogram with TPA thrombolysis and balloon angioplasty of the left peroneal artery, left posterior tibial artery was significant improvement. Patient did have bleeding initially from the right groin access site and has significant ecchymosis. He has not had any further bleeding since his procedure, no hematoma. Hemoglobin has been stable with a repeat today is 16.1. He currently remains on IV heparin drip. Underwent CTA chest that reported limited evaluatio n secondary to motion no evidence of central pulmonary embolism. Limited evaluation of segmental and subsegmental branches. Cardiomegaly with mild pulmonary vascular congestion correlate with BMP. Small hiatal hernia. Echocardiogram reported hyperdynamic left ventricle with EF of 65-70%. Normal RV dimension and systolic function. Normal pulmonary artery systolic pressure. Normal intracardiac valves. No evidence of pericardial effusion. He states left lower extremity pain significantly improved. He is denying any shortness of breath, chest pain, abdominal pain, nausea or vomiting. Has good range of motion of left lower extremity. Objective - Vital Signs Vital signs: Vital Signs Temp 98.6 F 10/25/22 07:36 Pulse 80 10/25/22 08:13 Resp 17 10/25/22 07:36 BP 150/120 10/25/22 07:36 Pulse Ox 96 10/25/22 07:36 FiO2 Intake & Output 10/24/22 10/25/22 10/25/22 18:59 06:59 18:59 Intake Total 958 250 120 Output Total 325 275 Balance 633 -25 120 Weight 98 kg Intake: IV 400 Sodium Chloride 0.9% 1, 400 000 ml @ 100 mls/hr IV . Q10H [facility] Rx#:[id number] Intake, IV Titration 250 Amount Heparin Sod,Pork in 0.45% 250 NaCl 25,000 unit In 0.45 % NaCl 1 250ml.bag @ 18 UNITS/KG/HR 17.622 mls/hr IV .[id number] [facility] Rx#: [id number] Oral 558 120 Output: Urine 325 275 Other: Voiding Method Urinal Urinal Urinal # Voids 1 - Exam General appearance: The patient is alert, oriented, appears in no acute distress. HET: Head is normocephalic and atraumatic. Pupils are equal and reactive. Neck: Supple. Heart: Regular. Lungs: Equal expansion, normal respiratory effort. Abdomen: Soft, nontender, nondistended. Extremities: Right groin with ecchymosis spread to thigh, flank and abdomen, soft, no active bleeding, pressure dressing in place. Left lower extremity pink, warm to the touch, palpable DP pulse. Sensorimotor intact. Neurological: No focal deficits, alert and oriented 3. - Labs CBC & Chem 7: 10/25/22 06:46 10/24/22 03:34 Labs: Abnormal Lab Results - Last 24 Hours (Table) 10/24/22 10/24/22 10/24/22 Range/Units 09:10 09:10 13:27 MCV 104.3 H (80.0-100.0) fL Plt Count 103 L (150-450) k/uL Lymphocytes # 0.3 L (1.0-4.8) k/uL APTT 30.2 H 53.4 H (22.0-30.0) sec 10/25/22 10/25/22 Range/Units 06:46 06:46 MCV 104.4 H (80.0-100.0) fL Plt Count 124 L (150-450) k/uL Lymphocytes # 0.8 L (1.0-4.8) k/uL APTT 56.3 H (22.0-30.0) sec Assessment and Plan Assessment: 1. Left lower extremity acute critical limb ischemia 2. Occlusion of left posterior tibial, anterior tibial and peroneal arteries status post left lower extremity angiogram with TPA thromboliasis, percutaneous balloon angioplasty of the left peroneal artery, left posterior tibial artery with right femoral closure device 3. Left lower extremity pain 4. COPD 5. History of right lower extremity DVT on Eliquis 6. Nicotine abuse, 1 pack per day smoker 7. Non-ambulatory, wheelchair-bound due to right hip dysplasia requiring multiple surgeries Plan: 1. Heart healthy diet 2. CT angiogram chest reviewed 3. Echocardiogram ordered and reviewed 4. Medical management per primary medicine team 5. May increase activity 6. Counseled on tobacco cessation 7. Will transition from IV heparin to oral anticoagulation based on venous duplex findings 8. Venous duplex ordered bilateral lower extremities. Right lower extremity reports chronic DVT with component that may be acute. Will resume eliquis 5 mg by mouth twice a day Patient is cleared for discharge from a vascular surgical standpoint. The impression and plan of care has been dictated as directed. Dr. Callahan I performed a history and examination of this patient, discussed the same with the dictator. I agree with the dictator's note ,documented as a scribe. Any additional findings or plans will be noted.
--- NOTE | 2022-10-25 14:06 | P.PN ---
Subjective Progress Note Date: 10/25/22 Principal diagnosis: Leg ischemia. This is a pleasant 67-year-old male patient with a known history of DVT, hypertension, hyperlipidemia, hypothyroidism, home daily alcohol use, chronic tobacco dependence, anxiety, right hip dysplasia with multiple surgeries since the age of 13 and history of ongoing infection. Patient is wheelchair bound. He presented to the emergency room yesterday with left lower extremity pain. CT angiogram revealed scattered mild atherosclerotic calcification but with distal left SFA occlusion at the level of the abductor hiatus. No subsequent distal arterial flow is seen. 1.5 cm noncalcified gallstone. Right hip abnormality with prior surgery and large effusions/synovitis. Cannot exclude underlying infection. He was taken to [facility] yesterday by vascular surgery and was had undergone a ultrasound-guided right femoral artery access, selective left lower extremity angiogram third order to the distal superficial femoral artery with initiation of TPA thrombolysis. He was admitted to the intensive care unit for closer monitoring. Early this morning he did go back to [facility] for left lower extremity angiogram via the existing catheter with reposition of TPA thrombolytic catheter. He is seen today in consultation. He is awake and alert in no acute distress. He is resting flat in bed. TPA infusion continues at 1 mg per hour. He also has heparin drip at 500 units per hour. Normal saline at 100 ML's per hour. The plan is to return to the [facility] again later today. White count 6.4. Hemoglobin 18.1. Platelets 130,000. Fibrinogen 295. Sodium 131. Potassium 4.2. BUN 13. Creatinine 0.81. Bicarb 22. He remains on bronchodilators. Xanax for anxiety. Dilaudid for pain control. The patient is seen today 10/24/2022 in follow-up in the intensive care unit. He is awake and alert in no acute distress. Currently maintaining O2 saturations in the 90s on room air. He has normal saline at 100 ML's per hour. Remains on a heparin drip. Yesterday he did undergo a selective left lower extremity angiogram via the existing catheter, percutaneous balloon angioplasty of the left peroneal artery, PTBA of the left posterior tibial artery, percutaneous closure of the right femoral artery access. He continues with pulses in the left lower extremity. Echocardiogram revealed hyperdynamic left ventricle with ejection fraction of 65-70%. Normal RV function and pressures. No valvular heart disease. No pericardial effusion. White count 5.8. Hemoglobin 16.2. Platelets 103. Sodium 131. Potassium 4.1. Bicarb 20. BUN 10. Creatinine 0.74. Glucose 104. Progress note dated 10/25/2022. Patient is seen today in room 370. Currently, the patient's on room air. He is getting IV heparin. He is also getting saline at 100 mL an hour. He denies any difficulty breathing, shortness breath, cough, wheezing, or chest pain or tightness. Laboratory data includes a white count of 5.5, he will been 16.1, hematocrit 48.5, and a platelet count is 124,000. PTT is 56.3. DVT of the lower extremities showed no DVT in the left lower extremity, and a chronic DVT in the right lower extremity. CT angiogram was negative for pulmonary embolism, but did show small hiatal hernia, as well as cardiomegaly, and mild fluid overload. Objective - Vital Signs Vital signs: Vital Signs Temp 98.6 F 10/25/22 07:36 Pulse 76 10/25/22 11:49 Resp 15 10/25/22 11:12 BP 130/89 10/25/22 11:12 Pulse Ox 98 10/25/22 11:12 FiO2 Intake & Output 10/24/22 10/25/22 10/25/22 18:59 06:59 18:59 Intake Total 958 250 699.981 Output Total 325 275 200 Balance 633 -25 499.981 Weight 98 kg Intake: IV 400 Sodium Chloride 0.9% 1, 400 000 ml @ 100 mls/hr IV . Q10H [facility] Rx#:[id number] Intake, IV Titration 250 219.981 Amount Heparin Sod,Pork in 0.45% 250 219.981 NaCl 25,000 unit In 0.45 % NaCl 1 250ml.bag @ 18 UNITS/KG/HR 17.622 mls/hr IV .[id number] [facility] Rx#: [id number] Oral 558 480 Output: Urine 325 275 200 Other: Voiding Method Urinal Urinal Urinal # Voids 1 - Exam No acute distress, oriented 3. Currently on room air. Saturations are 98%. HEENT examination is grossly unremarkable. Mucous membranes are moist. No oral lesions. Neck supple. Full range of motion. No adenopathy thyromegaly or neck vein distention. Cardiovascular examination reveals regular rhythm rate. S1-S2 normal. No S3 or S4. No discernible murmur noted. Heart sounds are distant. Heart rate 76 bpm. Lungs reveal clear breath sounds. Her sounds are equal bilaterally. No adventitious lung sounds including wheezes rhonchi or crackles. Abdomen soft bowel sounds are heard. No masses or tenderness. Extremities are intact. No cyanosis clubbing or edema. Skin is without rash or lesion. Neurologic examination is brief but nonfocal. - Labs CBC & Chem 7: 10/25/22 06:46 10/24/22 03:34 Labs: Abnormal Lab Results - Last 24 Hours (Table) 10/25/22 10/25/22 Range/Units 06:46 06:46 MCV 104.4 H (80.0-100.0) fL Plt Count 124 L (150-450) k/uL Lymphocytes # 0.8 L (1.0-4.8) k/uL APTT 56.3 H (22.0-30.0) sec Assessment and Plan Assessment: Acute left lower extremity pain with ischemia found to have superficial femoral artery occlusion. Required TPA infusion. Catheters removed on 10/23/2021. History of previous right lower extremity DVT maintained on Eliquis. History of right hip dysplasia requiring multiple surgeries since age of 13. Hypertension. Hyperlipidemia. Hypothyroidism. Anxiety. Chronic and ongoing tobacco dependence. Daily alcohol use. Plan: Plan dated 10/25/2022. The patient appears to be doing relatively well. He is on room air. He denies any respiratory issues. CT angiogram showed no evidence of pulmonary embolism. He is getting IV heparin, and saline at 100 mL an hour. Labs, x-rays, and medications are all reviewed. Prognosis is guarded. We will continue to follow and make recommendations along the way. Time with Patient: Less than 30
[2022-10-25 15:15] VITALS: BP 148/93; RESP 17; TEMP 97.8
[2022-10-25] MEDS: ALPRAZolam 1 MG TAB PO PRN (15:16)
[2022-10-25 15:33] VITALS: PULSE 72
[2022-10-25] MEDS ORDERED: APIXABAN 5 MG TAB PO SCH (21:00)
--- NOTE | 2022-10-26 03:07 | PN ---
PROGRESS NOTE DATE OF SERVICE: 10/24/2022 HISTORY OF PRESENT ILLNESS: This gentleman is doing reasonably well, but he is having some discomfort in the leg and in the back having to lie on his back for so long. PHYSICAL EXAMINATION: VITAL SIGNS: Blood pressure is 134/94. CHEST: Clear and he is in sinus rhythm. ABDOMEN: Soft. EXTREMITIES: Left foot is very warm and has excellent capillary refill. IMPRESSION: 1. Ischemia of the left leg. 2. Chronic obstructive pulmonary disease. 3. Hypertension. PLAN: Continue to follow with Vascular Surgery. He is doing well. MMODL / IJN: [id number] /
--- NOTE | 2022-10-26 04:28 | DS ---
DISCHARGE SUMMARY CHIEF COMPLAINT: Ischemia of the left leg. History of present illness and physical exam, details of this man's history and physical can be found in the initial workup. LABORATORY STUDIES: While he was in the hospital, he had laboratory studies, details of which can be found in the laboratory section of his chart. COURSE IN THE HOSPITAL: After admission, he was placed on bedrest and taken to the [facility], where Vascular Surgery performed angiogram demonstrating superficial femoral cardiac occlusion. Catheters were placed and the artery was cleared. He was taken for a second-look a day later. Foot remained very well perfused and viable and he was doing well and felt that he could go home on the . FINAL DIAGNOSES: 1. Left superficial femoral artery occlusion. 2. Hypertension. OPERATIONS: Vascular procedure to open the left superficial femoral artery. CONSULTATIONS: Vascular Surgery. He is improved. MMXOCHITLL / JULIANAN: [id number] /
== END 2022-10-25 16:53 | disposition home or self-care (01) | DRG 254 ==
LOC: EC 09:20 → 2SICU 13:49 → 3SCARD 10-24 14:37
PROVIDERS: ADMIT Family Medicine; ATTEND Family Medicine
PROC: 3E05317 Introduction of Other Thrombolytic into Peripheral Artery, Percutaneous Approach (ICD-10-PCS; principal; 2022-10-22 21:45)
PROC: 04HL33Z Insertion of Infusion Device into Left Femoral Artery, Percutaneous Approach (ICD-10-PCS; 2022-10-23)
PROC: 06HN33Z Insertion of Infusion Device into Left Femoral Vein, Percutaneous Approach (ICD-10-PCS; 2022-10-23)
PROC: 047S3Z1 Dilation of Left Posterior Tibial Artery using Drug-Coated Balloon, Percutaneous Approach (ICD-10-PCS; 2022-10-23 14:40)
PROC: 047U3Z1 Dilation of Left Peroneal Artery using Drug-Coated Balloon, Percutaneous Approach (ICD-10-PCS; 2022-10-23 14:40)
PROC: 06PY33Z Removal of Infusion Device from Lower Vein, Percutaneous Approach (ICD-10-PCS; 2022-10-23 14:40)
DX: I70.222 Atherosclerosis of native arteries of extremities with rest pain, left leg (principal); I11.9 Hypertensive heart disease without heart failure; E03.9 Hypothyroidism, unspecified; J44.9 Chronic obstructive pulmonary disease, unspecified; M79.89 Other specified soft tissue disorders; E78.5 Hyperlipidemia, unspecified; F17.210 Nicotine dependence, cigarettes, uncomplicated; F41.9 Anxiety disorder, unspecified; F10.90 Alcohol use, unspecified, uncomplicated; K80.20 Calculus of gallbladder without cholecystitis without obstruction; I25.10 Atherosclerotic heart disease of native coronary artery without angina pectoris; K44.9 Diaphragmatic hernia without obstruction or gangrene; E87.70 Fluid overload, unspecified; M65.9 Synovitis and tenosynovitis, unspecified; Z96.641 Presence of right artificial hip joint; Z79.01 Long term (current) use of anticoagulants; Q65.89 Other specified congenital deformities of hip; Z86.718 Personal history of other venous thrombosis and embolism; Z99.3 Dependence on wheelchair; Z87.39 Personal history of other diseases of the musculoskeletal system and connective tissue; Z28.311 Partially vaccinated for COVID-19; Z88.5 Allergy status to narcotic agent; Z91.018 Allergy to other foods; Z88.1 Allergy status to other antibiotic agents; Z88.8 Allergy status to other drugs, medicaments and biological substances; Z79.899 Other long term (current) drug therapy; Z79.890 Hormone replacement therapy; Z91.81 History of falling; Z86.14 Personal history of Methicillin resistant Staphylococcus aureus infection
CPT/HCPCS: 36200; 36415; 37211; 37213; 37214; 37228; 37232; 71275; 75710; 76937; 80048; 80053; 85025; 85027; 85384; 85610; 85730; 86850; 86900; 86901; 93306; 93970; 94640; 96374; 99285

== ENCOUNTER → 2023-06-13 | Day surgery (SDC) | payer MEDICARE ==
[~2023-06-13] MED LIST changes: +ALPRAZolam 0.5 MG TAB ONE; +IOPAMIDOL-250 100ML BTL INTRAARTER ONE; -LACTATED RINGERS 1,000 ML IV SCH; -LIDOCAINE 1% (10MG/ML) FOR IV START INTRADERMA PRN; +LIDOCAINE 1% INJ 10MG/ML (30 ML VIAL-PF) SQ ONE; +MIDAZOLAM 2 MG/2 ML VIAL IVP ONE; +SODIUM CHLORIDE 0.9% 1,000 ML in EMPTY BAG 1 BAG IV ONE; +fentaNYL (PF) 50 MCG/1 ML VIAL IVP ONE; +fentaNYL (PF) 50 MCG/ML 2 ML AMP ONE
[2023-06-13 09:46] VITALS: TEMP 97.7
[2023-06-13 10:24] LABS: African American GFR (CKD) >90 (>60 ml/min/1.73 sqM); Anion Gap 12 mmol/L; Blood Urea Nitrogen 10 mg/dL (9-20); Carbon Dioxide 23 mmol/L (22-30); Chloride 103 mmol/L (98-107); Glucose 89 mg/dL (74-99); Non-African American GFR(CKD) 89 (>60 ml/min/1.73 sqM); Potassium 3.8 mmol/L (3.5-5.1); Sodium 138 mmol/L (137-145)
[2023-06-13 10:33] LABS: Basophils % (A) 1 %; Eosinophils # (A) 0.1 k/uL (0-0.7); Eosinophils % (A) 3 %; Lymphocytes # (A) 0.8 k/uL (1.0-4.8); Lymphocytes % (A) 17 %; MCH 36.6 pg (25.0-35.0); MCHC 33.6 g/dL (31.0-37.0); MCV 108.8 fL (80.0-100.0); Macrocytosis Marked; Mean Platelet Volume 8.4; Monocytes # (A) 0.5 k/uL (0-1.0); Monocytes % (A) 10 %; Neutrophils # (A) 3.1 k/uL (1.3-7.7); Neutrophils % (A) 67 %; Platelet Count 205 k/uL (150-450); RBC 5.51 m/uL (4.30-5.90); RDW 14.3 % (11.5-15.5); WBC 4.6 k/uL (3.8-10.6)
[2023-06-13 10:37] LABS: HGB 20.1 gm/dL (13.0-17.5)
[2023-06-13 10:38] LABS: HCT 59.9 % (39.0-53.0)
--- NOTE | 2023-06-13 11:30 | IR ---
EXAMINATION TYPE: IR angio abdominal w runoff DATE OF EXAM: 06/13/2023 COMPARISON: NONE HISTORY: Fluoroscopy time. Fluoroscopy was provided to the referring clinician.
[2023-06-13 15:40] VITALS: BP 140/93; PULSE 92; RESP 16
--- NOTE | 2023-06-19 10:20 | P.OP ---
Date of Procedure: 06/13/23 Description of Procedure: Preoperative diagnosis: Ana 4 left lower extremity peripheral arterial disease, rest pain Postoperative diagnosis: Same Procedure: Ultrasound-guided right common femoral artery access #2 right iliofemoral aneurysm #3 selective second order angiogram the left lower extremity with catheter placement at the common femoral artery 4. Moderate conscious sedation 28 minutes, personal monitoring of certified RN administration and hemodynamic monitoring Surgeon: Eulalia Mosqueda D.O. EBL: Less than 5 mL IV fluids: See records Urine output: Not measured Drains: None Complications: None immediately apparent Condition: Stable to recovery Operative indication and findings: Patient is a 67-year-old male who previously had issues with a left lower extremity acute limb ischemia earlier this year. He underwent thrombolysis and had improvement of flow. He then over time had wo rsening of his blood flow artery presented to the office with rest pain and has been going on for quite a long time. He underwent imaging which shows occlusion of his femoral popliteal segments. He presents today for angiogram and potential intervention Procedure in detail: Patient was brought to the [facility] [employer] [employer]ulator placed in supine position. The bilateral groins are prepped and draped in usual sterile fashion. A preprocedure timeout was performed, all parties were in agreement. Using ultrasound, the right common femoral artery was identified. The skin overlying this has with 1% lidocaine plain. The ultrasound was utilized in the common femoral artery was found to be patent and free of significant calcific disease. A permanent image was stored. The artery was accessed my practice and Seldinger technique was used the 6-Yoruba sheath. A right iliofemoral angiogram was performed showing widely patent right common iliac, internal/external iliac and common femoral vessels. Catheters wires were then used to access the contralateral side and a left lower extremity angiogram was performed from the common iliac artery. Widely patent common iliac, external iliac and internal iliac arteries. Catheters wires were then used to advance further and slough down into the common femoral artery with the catheter. An angiogram was performed showing a widely patent common femoral artery without significant disease. The profunda femoris appeared widely patent without significant disease. There was flush occlusion of the superficial femoral artery without any evidence of reconstitution. There is no Cass. The cyst total of the superficial femoral artery, popliteal, below-knee popliteal, anterior tibial and tibial peroneal trunk were occluded. There was visualization of wisps of the peroneal vessel at the mid calf as well as the posterior tibial and a short segment at the ankle. This catheters wires removed. The sheath was removed and a closure device was placed. Hemostasis appeared adequate. Patient tolerated the procedure well Plan - Discharge Summary Discharge Rx Participant: No New Discharge Prescriptions: No Action RX: tiZANidine HCL [Zanaflex] 4 mg PO DAILY RX: traZODone HCL [Desyrel] 50 - 100 mg PO HS PRN PRN Reason: sleep RX: Apixaban [Eliquis] 5 mg PO BID RX: Albuterol Sulfate [Ventolin HFA] 2 puff INHALATION RT-Q6H PRN PRN Reason: Shortness Of Breath RX: icosapent ethyL [Icosapent Ethyl] 2 gm PO DAILY RX: ALPRAZolam [Xanax] 0.5 mg PO TID PRN PRN Reason: Anxiety RX: Metoprolol Succinate (ER) [Toprol XL] 100 mg PO QAM RX: Doxycycline [Vibramycin] 100 mg PO BID RX: Levothyroxine Sodium [Synthroid] 50 mcg PO QAM RX: lisinopriL 40 mg PO QAM RX: Omeprazole 20 mg PO DAILY Discharge Medication List RX: tiZANidine HCL [Zanaflex] 4 mg PO DAILY 12/24/18 [History] RX: traZODone HCL [Desyrel] 50 - 100 mg PO HS PRN 12/25/21 [History] RX: ALPRAZolam [Xanax] 0.5 mg PO TID PRN 10/22/22 [History] RX: Albuterol Sulfate [Ventolin HFA] 2 puff INHALATION RT-Q6H PRN 10/22/22 [History] RX: Apixaban [Eliquis] 5 mg PO BID 10/22/22 [History] RX: Levothyroxine Sodium [Synthroid] 50 mcg PO QAM 10/22/22 [History] RX: icosapent ethyL [Icosapent Ethyl] 2 gm PO DAILY 10/22/22 [History] RX: lisinopriL 40 mg PO QAM 10/22/22 [History] RX: Doxycycline [Vibramycin] 100 mg PO BID 06/10/23 [History] RX: Metoprolol Succinate (ER) [Toprol XL] 100 mg PO QAM 06/10/23 [History] RX: Omeprazole 20 mg PO DAILY 06/10/23 [History] Follow up Appointment(s)/Referral(s): Eulalia Mosqueda DO [STAFF PHYSICIAN] - 1 Week Activity/Diet/Wound Care/Special Instructions: Continue home medications. Resume bathing as regularly. Continue activity as tolerated. May resume oral anticoagulation tomorrow. Discharge Disposition: HOME SELF-CARE
== END ==
LOC: CATHCVL 08:50
PROVIDERS: ATTEND Surgery
DX: I73.9 Peripheral vascular disease, unspecified (principal); Z79.899 Other long term (current) drug therapy; Z79.01 Long term (current) use of anticoagulants; Z88.5 Allergy status to narcotic agent
CPT/HCPCS: 36246; 75710; 76937; 80048; 85025; C1894; C1769 ×3; C1760; J2250; J2001; Q9966; J3010

== ENCOUNTER 2023-06-26 10:07 | Inpatient (IN) | payer MEDICARE, OTHER ==
[~2023-06-26 10:07] MED LIST changes: -ALPRAZolam 0.5 MG TAB ONE; -IOPAMIDOL-250 100ML BTL INTRAARTER ONE; +LIDOCAINE 1% (10MG/ML) FOR IV START INTRADERMA PRN; -LIDOCAINE 1% INJ 10MG/ML (30 ML VIAL-PF) SQ ONE; +MIDAZOLAM 2 MG/2 ML VIAL IV PRN; -MIDAZOLAM 2 MG/2 ML VIAL IVP ONE; -SODIUM CHLORIDE 0.9% 1,000 ML in EMPTY BAG 1 BAG IV ONE; -fentaNYL (PF) 50 MCG/1 ML VIAL IVP ONE; -fentaNYL (PF) 50 MCG/ML 2 ML AMP ONE
[2023-06-26] MEDS ORDERED: ONDANSETRON 4 MG/2 ML VIAL ONE (10:27)
[2023-06-26] MEDS ORDERED: LACTATED RINGERS 1,000 ML IV ONE ×2 (10:36→13:22)
[2023-06-26] MEDS ORDERED: IPRATROPIUM-ALBUTEROL 3 ML NEB ONE (10:54)
[2023-06-26] MEDS ORDERED: DEXAMETHASONE SOD PHOSPHATE 4 MG/ML 1 ML VIAL IVP ONE (11:32)
[2023-06-26] MEDS ORDERED: IPRATROPIUM-ALBUTEROL 3 ML NEB INHALATION STA (11:35)
[2023-06-26 11:48] LABS: INR 1.1 (<1.2); Prothrombin Time 11.7 sec (10.0-12.5)
[2023-06-26] MEDS ORDERED: MIDAZOLAM 2 MG/2 ML VIAL ONE (11:54)
[2023-06-26] MEDS ORDERED: PHENYLEPHRINE-0.9% NACL SYG 1,000 MCG/10 ML SYRINGE ONE (11:54)
[2023-06-26] MEDS ORDERED: ePHEDrine 50 MG/ML 1 ML VIAL ONE (11:54)
[2023-06-26] MEDS ORDERED: PROPOFOL 10 MG/ML 20 ML VIAL IV ONE (11:54)
[2023-06-26] MEDS ORDERED: KETAMINE HCL IN 0.9 % NACL 50 MG/5 ML SYRINGE ONE (11:54)
[2023-06-26] MEDS ORDERED: ceFAZolin 2 GM in SODIUM CHLORIDE 0.9% 500 ML 500 ML IRRIGATION ONE (12:49)
[2023-06-26] MEDS ORDERED: ONDANSETRON 4 MG/2 ML VIAL IVP PRN (13:39)
--- NOTE | 2023-06-26 13:39 | P.OP ---
Date of Procedure: 06/26/23 Description of Procedure: Preoperative diagnosis: Left lower extremity ischemia, rest pain, severe peripheral arterial disease Postoperative diagnosis: Same Procedure: Left Above-knee amputation Surgeon: Eulalia Mosqueda D.O. 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 The profunda appeared to fill but there was no reconstitution. The patient is wheelchair-bound already and discussed going forward with an above-knee amputation. Risks and benefits were discussed. He seemingly understood and was willing to proceed. Procedure in detail: The patient was taken to the operative suite and placed in supine position. After adequate anesthesia, the left lower extremity was prepped and draped in usual sterile fashion. A preprocedure timeout was pe rformed, all parties were in agreement. Skin marker was utilized and the incision was marked approximately 5 cm proximal to the knee joint. Skin incision was performed and deepened through the subcutaneous tissues to the muscular fascia. The saphenous vein was identified and ligated with 2-0 silk and divided. The muscle groups of the anterior and medial thigh were divided with electrocautery at the same level of the skin incision. The neurovascular bundle was identified on the medial aspect of the thigh. The artery and veins were isolated and suture ligated using 2-0 silk ligature. The sciatic nerve was pulled on stretch and ligated with 2-0 silk tie and divided. The femur was then cleared of its periosteal tissue is elevated roughly 5 cm proximally and was divided with the oscillating saw. The posterior thigh muscles were then divided with electrocautery. The proximal end of the transected femur was smoothed with a rasp. The amputation site was then copiously irrigated. Hemostasis was controlled with electrocautery. The periosteum was reapproximated using interrupted sutures of 2-0 Vicryl. The fascia was reapproximated with interrupted [id number] sutures of 2-0 Vicryl. The skin was reapproximated with gian. A dressing with gauze, Kerlix and a bandage were placed. The patient tolerated the procedure well and was transported to PACU in stable condition
[2023-06-26] MEDS ORDERED: ALBUTEROL NEBULIZED 2.5 MG/3 ML INHALATION PRN (15:41)
[2023-06-26] MEDS: MORPHINE SULFATE 4 MG/ML SYRINGE IVP PRN ×3 (17:26→22:52)
[2023-06-26] MEDS: LACTATED RINGERS 1,000 ML IV SCH (18:20)
[2023-06-26] MEDS: ALPRAZolam 0.5 MG TAB PO PRN (20:00)
[2023-06-26] MEDS: traZODone HCL 50 MG TAB PO PRN (21:04)
[2023-06-27] MEDS: HYDROcodone/APAP 5-325MG 1 EACH TAB PO PRN ×3 (00:29→19:05)
[2023-06-27] MEDS: MORPHINE SULFATE 4 MG/ML SYRINGE IVP PRN ×4 (02:54→15:09)
[2023-06-27] MEDS: LEVOTHYROXINE 50 MCG TAB PO SCH (05:12)
[2023-06-27] MEDS: PANTOPRAZOLE 40 MG TABLET PO SCH (08:04)
[2023-06-27] MEDS: METOPROLOL SUCCINATE (ER) 100 MG TAB.ER.24H PO SCH (08:04)
[2023-06-27] MEDS: tiZANidine 4 MG TAB PO SCH (08:04)
[2023-06-27] MEDS: NON FORMULARY DRUG (Icosapent Ethyl [Icosapent Ethyl] 1 GM Capsule) PO SCH (10:50)
--- NOTE | 2023-06-27 12:20 | P.PN ---
Subjective Progress Note Date: 06/27/23 Patient seen and examined. Doing relatively well overall. Attempted moved to chair with physical therapy and nursing, didn't go well. Pain otherwise relatively well controlled. Objective - Vital Signs Vital signs: Vital Signs Temp 98.6 F 06/27/23 07:33 Pulse 92 06/27/23 07:33 Resp 18 06/27/23 07:33 BP 136/90 06/27/23 07:33 Pulse Ox 93 L 06/27/23 07:33 FiO2 Intake & Output 06/26/23 06/27/23 06/27/23 18:59 06:59 18:59 Intake Total 1601 Output Total 1075 800 Balance 526 -800 Weight 104.54 kg Intake: IV 1601 Output: Urine 975 800 Estimated Blood Loss 100 Other: Voiding Method Indwelling Catheter Indwelling Catheter - Exam No acute distress resting comfortably. Left lower extremity dressing clean, dry, intact. Right lower extremity externally rotated Assessment and Plan Assessment: Postoperative day #1 left above-knee amputation Martin 6 peripheral arterial disease Phantom limb pain Nonweightbearing right lower extremity. Plan: Patient doing relatively well overall. We'll plan for a rigid dressing and stump assistant distribution manager by [employer]. PT evaluation reviewed. Plan for rehab. DC planning per case management.
[2023-06-27] MEDS ORDERED: IPRATROPIUM-ALBUTEROL 3 ML NEB INHALATION PRN (12:56)
[2023-06-27] MEDS: GABAPENTIN 300 MG CAP PO SCH ×2 (15:09→21:06)
--- NOTE | 2023-06-27 16:35 | PN ---
PROGRESS NOTE DATE OF SERVICE: 06/27/2023 CHIEF COMPLAINT: Status post left AK amputation. HISTORY OF PRESENT ILLNESS: This gentleman is doing fairly well and not having a great deal of pain. Plan is that he will go to [facility] the first week for rehab. PHYSICAL EXAMINATION: VITAL SIGNS: Normal. CHEST: Clear. CARDIAC: Normal. ABDOMEN: Soft and nontender. IMPRESSION: 1. Status post left above-knee amputation. 2. Chronic obstructive pulmonary disease. 3. Polycythemia. PLAN: No change in program today. MMODL / IJN: [id number] /
--- NOTE | 2023-06-27 19:14 | HP ---
HISTORY AND PHYSICAL CHIEF COMPLAINT: Ischemia of the left leg. HISTORY OF PRESENT ILLNESS: Another admission for this 67-year-old gentleman, who has developed atherosclerotic peripheral vascular occlusive disease in the left leg and is coming in for an elective amputation. He has always been a heavy smoker. REVIEW OF SYSTEMS: Otherwise unremarkable other than his pain. Past medical history, family history, and personal and social histories are all to be found in his admitting summary. He is a heavy smoker. PHYSICAL EXAMINATION: VITAL SIGNS: Blood pressure is 142/88 with a pulse of 79, respirations of 30, and he is afebrile. GENERAL: Appeared to be well developed, well nourished, in no acute distress. SKIN: Color is normal. Skin is warm and dry. LYMPHATICS: Lymph nodes are not enlarged. HEAD, EARS, EYES, NOSE, MOUTH, AND THROAT: Normal. CHEST: Clear. CARDIAC: Normal. ABDOMEN: Soft. Nontender. EXTREMITIES: Normal except for the ischemic left lower leg and foot. IMPRESSION: 1. Ischemia of the left leg. 2. Atherosclerotic cardiovascular disease. 3. Chronic obstructive pulmonary disease. RECOMMENDATIONS: None at this time. He is cleared for surgery. MMODL / IJN: [id number] /
[2023-06-27] MEDS: LACTATED RINGERS 1,000 ML IV SCH (21:05)
[2023-06-27] MEDS: traZODone HCL 50 MG TAB PO PRN (23:00)
[2023-06-28] MEDS: HYDROcodone/APAP 5-325MG 1 EACH TAB PO PRN ×4 (02:40→22:16)
[2023-06-28] MEDS: LEVOTHYROXINE 50 MCG TAB PO SCH (06:31)
[2023-06-28] MEDS: NON FORMULARY DRUG (Icosapent Ethyl [Icosapent Ethyl] 1 GM Capsule) PO SCH (09:04)
[2023-06-28] MEDS: tiZANidine 4 MG TAB PO SCH (09:05)
[2023-06-28] MEDS: PANTOPRAZOLE 40 MG TABLET PO SCH (09:05)
[2023-06-28] MEDS: METOPROLOL SUCCINATE (ER) 100 MG TAB.ER.24H PO SCH (09:05)
[2023-06-28] MEDS: LACTATED RINGERS 1,000 ML IV SCH (09:05)
[2023-06-28] MEDS: GABAPENTIN 300 MG CAP PO SCH ×3 (09:05→22:16)
[2023-06-28 11:52] LABS: HCT 44.3 % (39.6-50.0); HGB 15.3 g/dL (13.0-17.0); MCH 36.3 pg (27.0-32.0); MCHC 34.5 g/dL (32.0-37.0); MCV 105.2 FL (80.0-97.0); Mean Platelet Volume 10.5 FL (9.5-12.2); NRBC Per 100 WBC 0 X 10*3/uL (0.00-0.01); Platelet Count 165 X 10*3/uL (140-440); RBC 4.21 X 10*6/uL (4.40-5.60); RDW 13.2 % (11.5-14.5); WBC 5.41 X 10*3/uL (4.50-10.00)
--- NOTE | 2023-06-28 12:57 | P.PN ---
Subjective Progress Note Date: 06/28/23 patient seen and examined. Doing well. No complaints. Objective - Vital Signs Vital signs: Vital Signs Temp 98.4 F 06/28/23 06:54 Pulse 70 06/28/23 06:54 Resp 18 06/28/23 06:54 BP 141/93 06/28/23 06:54 Pulse Ox 95 06/28/23 08:21 FiO2 Intake & Output 06/27/23 06/28/23 06/28/23 18:59 06:59 18:59 Output Total 350 Balance -350 Output: Urine 350 Other: Voiding Method Indwelling Catheter # Voids 2 5 - Exam No acute distress resting comfortably. Left lower extremity AKA site clean, dry and intact. Right lower extremity externally rotated - Labs CBC & Chem 7: 06/28/23 06:47 Labs: Abnormal Lab Results - Last 24 Hours (Table) 06/28/23 Range/Units 06:47 RBC 4.21 L (4.40-5.60) X 10*6/uL MCV 105.2 H (80.0-97.0) FL MCH 36.3 H (27.0-32.0) pg Assessment and Plan Assessment: Postoperative day #2 left above-knee amputation Ana 6 peripheral arterial disease Phantom limb pain Nonweightbearing right lower extremity. Plan: Patient doing relatively well overall. Rigid dressing and stump tamper operator by [employer]. Plan for rehab. DC planning per case management.
[2023-06-28 15:03] LABS: ALT 11 U/L (4-49); AST 23 U/L (17-59); African American GFR (CKD) >90 (>60 ml/min/1.73 sqM); Albumin 2.3 g/dL (3.5-5.0); Albumin/Globulin Ratio 0.9; Alkaline Phosphatase 85 U/L (38-126); Anion Gap 5 mmol/L; Blood Urea Nitrogen 13 mg/dL (9-20); Calcium 8.4 mg/dL (8.4-10.2); Carbon Dioxide 26 mmol/L (22-30); Chloride 95 mmol/L (98-107); Globulin 2.5 g/dL; Glucose 107 mg/dL (74-99); Non-African American GFR(CKD) >90 (>60 ml/min/1.73 sqM); Potassium 4.2 mmol/L (3.5-5.1); Sodium 126 mmol/L (137-145); Total Bilirubin 0.7 mg/dL (0.2-1.3); Total Protein 4.8 g/dL (6.3-8.2)
[2023-06-28] MEDS: ALPRAZolam 0.5 MG TAB PO PRN (18:18)
--- NOTE | 2023-06-28 21:29 | PN ---
PROGRESS NOTE DATE OF SERVICE: 06/28/2023 CHIEF COMPLAINT: PVOD. HISTORY OF PRESENT ILLNESS: This gentleman is doing fairly well. He has had no significant problems with pain or bleeding. PHYSICAL EXAMINATION: CHEST: Clear. CARDIAC: Normal. ABDOMEN: Soft, nontender. IMPRESSION: 1. Pulmonary veno-occlusive disease, status post left above-knee amputation. 2. Chronic obstructive pulmonary disease. PLAN: 1. Remove telemetry. 2. Repeat laboratory studies. MMODL / IJN: [id number] /
[2023-06-29] MEDS: traZODone HCL 50 MG TAB PO PRN ×2 (00:23→22:39)
[2023-06-29 00:42] LABS: Basophils # (A) 0.05 X 10*3/uL (0.00-0.10); Basophils % (A) 0.8 %; Eosinophils # (A) 0.09 X 10*3/uL (0.04-0.35); Eosinophils % (A) 1.4 %; HCT 44.1 % (39.6-50.0); Lymphocytes % (A) 17.6 %; MCH 35.9 pg (27.0-32.0); MCV 105.5 FL (80.0-97.0); Mean Platelet Volume 10.3 FL (9.5-12.2); Monocytes # (A) 0.56 X 10*3/uL (0.20-1.00); NRBC Per 100 WBC 0 X 10*3/uL (0.00-0.01); Neutrophils # (A) 4.42 X 10*3/uL (1.80-7.70); Neutrophils % (A) 70.7 %; Platelet Count 173 X 10*3/uL (140-440); RBC 4.18 X 10*6/uL (4.40-5.60); WBC 6.25 X 10*3/uL (4.50-10.00)
[2023-06-29] MEDS: LEVOTHYROXINE 50 MCG TAB PO SCH (06:38)
[2023-06-29] MEDS: HYDROcodone/APAP 5-325MG 1 EACH TAB PO PRN ×2 (06:38→20:38)
[2023-06-29] MEDS: GABAPENTIN 300 MG CAP PO SCH ×3 (08:40→22:39)
[2023-06-29] MEDS: METOPROLOL SUCCINATE (ER) 100 MG TAB.ER.24H PO SCH (08:40)
[2023-06-29] MEDS: PANTOPRAZOLE 40 MG TABLET PO SCH (08:40)
[2023-06-29] MEDS: tiZANidine 4 MG TAB PO SCH (08:40)
[2023-06-29] MEDS: LACTATED RINGERS 1,000 ML IV SCH (10:50)
[2023-06-29] MEDS: NON FORMULARY DRUG (Icosapent Ethyl [Icosapent Ethyl] 1 GM Capsule) PO SCH (11:31)
--- NOTE | 2023-06-29 12:57 | P.PN ---
Subjective Progress Note Date: 06/29/23 Patient seen and examined. Doing relatively well overall. Pain is relatively well controlled. Being moved to chair Objective - Vital Signs Vital signs: Vital Signs Temp 98.2 F 06/29/23 07:23 Pulse 78 06/29/23 09:17 Resp 17 06/29/23 07:23 BP 130/85 06/29/23 07:23 Pulse Ox 98 06/29/23 09:11 FiO2 Intake & Output 06/28/23 06/29/23 06/29/23 18:59 06:59 18:59 Output Total 600 240 Balance -600 -240 Output: Urine 600 240 Other: Voiding Method Urinal - Exam No acute distress resting comfortably. Left lower extremity dressing clean, dry, intact. Right lower extremity externally rotated - Labs CBC & Chem 7: 06/28/23 14:27 06/28/23 14:27 Labs: Abnormal Lab Results - Last 24 Hours (Table) 06/28/23 06/28/23 Range/Units 14:27 14:27 RBC 4.18 L (4.40-5.60) X 10*6/uL MCV 105.5 H (80.0-97.0) FL MCH 35.9 H (27.0-32.0) pg Sodium 126 L (137-145) mmol/L Chloride 95 L (98-107) mmol/L Glucose 107 H (74-99) mg/dL Total Protein 4.8 L (6.3-8.2) g/dL Albumin 2.3 L (3.5-5.0) g/dL Assessment and Plan Assessment: Postoperative day #3 left above-knee amputation [place] 6 peripheral arterial disease Phantom limb pain Nonweightbearing right lower extremity. Plan: Awaiting rigid dressing and stump rotary helper by [employer]. PT evaluation reviewed. Plan for rehab. DC planning per case management. Patient clinically stable for discharge when planning available
[2023-06-29] MEDS ORDERED: SODIUM CHLORIDE 0.9% 1,000 ML IV ONE (14:44)
[2023-06-29] MEDS: ACETAMINOPHEN TAB 325 MG TAB PO PRN (15:08)
[2023-06-29] MEDS: SODIUM CHLORIDE 0.9% 1,000 ML IV SCH ×2 (15:09→23:56)
[2023-06-29] MEDS: polyethylene glycoL 3350 17 GM POWD.PACK PO SCH (22:25)
[2023-06-30] MEDS: ALPRAZolam 0.5 MG TAB PO PRN ×2 (03:38→21:10)
[2023-06-30] MEDS: ACETAMINOPHEN TAB 325 MG TAB PO PRN (03:39)
[2023-06-30] MEDS: HYDROcodone/APAP 5-325MG 1 EACH TAB PO PRN ×3 (06:48→20:30)
[2023-06-30] MEDS: LEVOTHYROXINE 50 MCG TAB PO SCH (06:48)
[2023-06-30] MEDS: PANTOPRAZOLE 40 MG TABLET PO SCH (08:50)
[2023-06-30] MEDS: GABAPENTIN 300 MG CAP PO SCH ×3 (08:50→21:10)
[2023-06-30] MEDS: tiZANidine 4 MG TAB PO SCH (08:50)
[2023-06-30] MEDS: NON FORMULARY DRUG (Icosapent Ethyl [Icosapent Ethyl] 1 GM Capsule) PO SCH (10:38)
[2023-06-30] MEDS: LACTATED RINGERS 1,000 ML IV SCH (10:39)
[2023-06-30] MEDS: SODIUM CHLORIDE 0.9% 1,000 ML IV SCH ×2 (12:40→19:54)
--- NOTE | 2023-06-30 15:53 | PN ---
PROGRESS NOTE DATE OF SERVICE: 06/29/2023 CHIEF COMPLAINT: Status post left above-knee amputation for PVOD. HISTORY OF PRESENT ILLNESS: This gentleman is doing fairly well. Breathing is improved with updrafts. PHYSICAL EXAMINATION: VITAL SIGNS: Normal. CHEST: Clear. CARDIAC: Normal. ABDOMEN: Soft and nontender. IMPRESSION: 1. PVOD in the left lower extremity, status post above-knee amputation. 2. Atherosclerotic cardiovascular disease. 3. Chronic obstructive pulmonary disease. PLAN: No change in program at this time. MMXOCHITLL / IJN: [id number] /
--- NOTE | 2023-06-30 17:08 | PN ---
PROGRESS NOTE DATE OF SERVICE: 06/30/2023 CHIEF COMPLAINT: Status post left above-knee amputation . HISTORY OF PRESENT ILLNESS: This gentleman is doing well. He has had no problems. Breathing is under good control. The updrafts are helping. PHYSICAL EXAMINATION: CHEST: Clear. CARDIAC: Normal. ABDOMEN: Soft and nontender. IMPRESSION: 1. PVOD, status post amputation of the left leg. 2. Chronic obstructive pulmonary disease. PLAN: No change in program. He will be going to rehab this week. CLINTL / JULIANAN: [id number] /
[2023-06-30] MEDS: polyethylene glycoL 3350 17 GM POWD.PACK PO SCH (20:32)
[2023-06-30] MEDS: traZODone HCL 50 MG TAB PO PRN (22:11)
[2023-07-01] MEDS: HYDROcodone/APAP 5-325MG 1 EACH TAB PO PRN ×4 (02:19→16:05)
[2023-07-01] MEDS: LEVOTHYROXINE 50 MCG TAB PO SCH (05:38)
[2023-07-01] MEDS: SODIUM CHLORIDE 0.9% 1,000 ML IV SCH (05:38)
[2023-07-01] MEDS: NON FORMULARY DRUG (Icosapent Ethyl [Icosapent Ethyl] 1 GM Capsule) PO SCH (09:12)
[2023-07-01] MEDS: LACTATED RINGERS 1,000 ML IV SCH (09:12)
[2023-07-01] MEDS: tiZANidine 4 MG TAB PO SCH (09:18)
[2023-07-01] MEDS: GABAPENTIN 300 MG CAP PO SCH ×2 (09:18→16:05)
[2023-07-01] MEDS: PANTOPRAZOLE 40 MG TABLET PO SCH (09:18)
[2023-07-01] MEDS: ALPRAZolam 0.5 MG TAB PO PRN (12:04)
[2023-07-01 15:01] VITALS: BP 110/78; PULSE 76; RESP 17; TEMP 98.1
--- NOTE | 2023-07-01 15:01 | P.DS ---
Providers Date of admission: 06/26/23 10:07 Expected date of discharge: 07/01/23 Attending physician: Eulalia Mosqueda, DO Consults: 06/26/23 13:39 Consult Physician Urgent Consulting Provider: Raphael Reddy Consult Reason/Comments: med mgmnt, post op aka Do you want consulting provider notified?: Yes Primary care physician: Raphael Reddy Hospital Course: 67-year-old male with a history of left lower extremity ischemia, rest pain and severe peripheral arterial disease who was scheduled to come in for a left vvmxi-fpm-bjzs amputation. He is postop day #5 for left uitih-vnz-rlxz amputation. Patient has been doing well. Pain has been well managed. He has been afebrile. He is also nonweightbearing on the right lower extremity due to no femur bone. He has been seen by PT and OT. Plan for discharge to [facility] for rehab. Patient will require bed with overhead trapeze. [employer] contacted for stump sewing demonstrator and rigid dressing which was applied. Dressing to left mwjiv-xvi-zayc amputation changed. Surgical site well approximated with gian without any drainage or bleeding. Significant ecchymosis noted to posterior aspect of leg from the incision through the buttocks and groin. Overall soft to palpation, nontender. Exam General appearance: The patient is alert, oriented, appears in no acute distress. HET: Head is normocephalic and atraumatic. Pupils are equal and reactive. Neck: Supple. Heart: Regular. Lungs: Equal expansion, normal respiratory effort. Abdomen: Soft, nontender, nondistended. Extremities: Left hprlr-fyb-xdek amputation stump were approximated with gian. Ecchymosis to posterior aspect of left leg from incision through the buttocks and groin. Neurological: No focal deficits. Alert and oriented. Assessment 1. Postop day #5 left aqvwk-mwg-caom amputation 2. Fiatt 6 peripheral arterial disease 3. Phantom limb pain 4. Nonweightbearing right lower extremity Plan Order for stump sewing demonstrator and rigid dressing, comfort prosthetics to apply. Plan for discharge to [facility] today. Scripts provided. The impression and plan of care has been dictated as directed. Dr. Mosqueda I performed a history and examination of this patient, discussed the same with the dictator. I agree with the dictator's note ,documented as a scribe. Any additional findings or plans will be noted. Procedures: Left tudml-wfc-yilv amputation Patient Condition at Discharge: Stable Plan - Discharge Summary Discharge Rx Participant: No New Discharge Prescriptions: New Gabapentin [Neurontin] 300 mg PO TID #9 cap HYDROcodone/APAP 5-325MG [Alpine 5-325] 1 each PO Q6HR PRN #12 tab PRN Reason: Pain Scale 6 To 7 Acetaminophen Tab [Tylenol] 650 mg PO Q6HR PRN tab PRN Reason: Fever And/ Or Pain Continue tiZANidine HCL [Zanaflex] 4 mg PO DAILY traZODone HCL [Desyrel] 50 - 100 mg PO HS PRN PRN Reason: sleep Apixaban [Eliquis] 5 mg PO BID Albuterol Sulfate [Ventolin HFA] 2 puff INHALATION RT-Q6H PRN PRN Reason: Shortness Of Breath icosapent ethyL [Icosapent Ethyl] 2 gm PO DAILY Metoprolol Succinate (ER) [Toprol XL] 100 mg PO QAM Doxycycline [Vibramycin] 100 mg PO BID ALPRAZolam [Xanax] 0.5 mg PO TID PRN #9 tab PRN Reason: Anxiety Levothyroxine Sodium [Synthroid] 50 mcg PO QAM No Action Omeprazole 20 mg PO DAILY Discharge Medication List tiZANidine HCL [Zanaflex] 4 mg PO DAILY 12/24/18 [History] traZODone HCL [Desyrel] 50 - 100 mg PO HS PRN 12/25/21 [History] Albuterol Sulfate [Ventolin HFA] 2 puff INHALATION RT-Q6H PRN 10/22/22 [History] Apixaban [Eliquis] 5 mg PO BID 10/22/22 [History] Levothyroxine Sodium [Synthroid] 50 mcg PO QAM 10/22/22 [History] icosapent ethyL [Icosapent Ethyl] 2 gm PO DAILY 10/22/22 [History] Doxycycline [Vibramycin] 100 mg PO BID 06/10/23 [History] Metoprolol Succinate (ER) [Toprol XL] 100 mg PO QAM 06/10/23 [History] Omeprazole 20 mg PO DAILY 06/10/23 [History] ALPRAZolam [Xanax] 0.5 mg PO TID PRN #9 tab 07/01/23 [Rx] Acetaminophen Tab [Tylenol] 650 mg PO Q6HR PRN tab 07/01/23 [Rx] Gabapentin [Neurontin] 300 mg PO TID #9 cap 07/01/23 [Rx] HYDROcodone/APAP 5-325MG [Alpine 5-325] 1 each PO Q6HR PRN #12 tab 07/01/23 [Rx] Follow up Appointment(s)/Referral(s): Eulalia Mosqueda DO [STAFF PHYSICIAN] - 2 Weeks Activity/Diet/Wound Care/Special Instructions: Patient is nonweightbearing on bilateral lower extremities. Activity as tolerated. Patient will need bed with overhead trapeze. Dressing change as needed with Kerlix. Order for stump sewing demonstrator and rigid dressing given to case management for comfort prosthetics Discharge Disposition: TRANSFER TO SNF/ECF
--- NOTE | 2023-07-02 03:40 | PN ---
PROGRESS NOTE DATE OF SERVICE: 07/01/2023 CHIEF COMPLAINT: PVOD of left leg. HISTORY OF PRESENT ILLNESS: This gentleman is doing well. He is having no problems with pain or shortness of breath. He is going to [facility] today. PHYSICAL EXAMINATION: CHEST: Clear. CARDIAC: Normal. ABDOMEN: Soft, nontender. IMPRESSION: 1. Status post left AKA amputation for ischemic left lower extremity. 2. Chronic obstructive pulmonary disease. PLAN: Discharge to [facility] today. MMODL / IJN: [id number] /
== END 2023-07-01 17:19 | DRG 241 ==
LOC: 2ORMAIN 10:07 → 4SSUR 15:09
PROVIDERS: ADMIT Surgery; ATTEND Surgery
PROC: 0Y6D0Z1 Detachment at Left Upper Leg, High, Open Approach (ICD-10-PCS; principal; 2023-06-26 11:30)
DX: I70.222 Atherosclerosis of native arteries of extremities with rest pain, left leg (principal); D64.9 Anemia, unspecified; F41.9 Anxiety disorder, unspecified; J44.9 Chronic obstructive pulmonary disease, unspecified; K21.9 Gastro-esophageal reflux disease without esophagitis; E78.5 Hyperlipidemia, unspecified; I10 Essential (primary) hypertension; D75.1 Secondary polycythemia; G54.6 Phantom limb syndrome with pain; I25.10 Atherosclerotic heart disease of native coronary artery without angina pectoris; Z79.01 Long term (current) use of anticoagulants; Z79.2 Long term (current) use of antibiotics; Z79.890 Hormone replacement therapy; Z79.899 Other long term (current) drug therapy; Z86.14 Personal history of Methicillin resistant Staphylococcus aureus infection; Z87.891 Personal history of nicotine dependence; Z96.641 Presence of right artificial hip joint; Z86.718 Personal history of other venous thrombosis and embolism; Z88.5 Allergy status to narcotic agent
CPT/HCPCS: 80053; 85025; 85027; 85610; 86850; 86900; 86901; 94640; 94760

== ENCOUNTER → 2024-05-15 | Outpatient (CLI) | payer MEDICARE ==
[2024-05-15 09:17] LABS: African American GFR (CKD) >90 (>60 ml/min/1.73 sqM); Blood Urea Nitrogen 9 mg/dL (9-20); Non-African American GFR(CKD) >90 (>60 ml/min/1.73 sqM)
--- NOTE | 2024-05-15 14:30 | CT ---
EXAMINATION TYPE: CT angio head neck CT DLP: 386.7 mGycm, Automated exposure control for dose reduction was used. DATE OF EXAM: 05/15/2024 10:30 AM COMPARISON: None. CLINICAL INDICATION:Male, 68 years old with history of R47.81 SLURRED SPEECH I63.9 CEREBRAL INFARCTIO N; PHH, slurred/slowed speech, weakness, unbalanced TECHNIQUE: Axially acquired helical CT angiogram of the head and neck was obtained with contrast util izing 75 cc of Isovue-370 administered intravenously. Axial images are supplemented with 3D reconstru ctions which were post-processed at an independent workstation. NASCET criteria used. FINDINGS: CTA HEAD: No evidence of acute intracranial hemorrhage, mass effect, or midline shift. The ventricles, sulci, a nd cisterns are unremarkable. Megacisterna magna. Cerebral volume loss. Periventricular white matter hypodensities. Complete opacification of the right mastoid air cells. The remaining paranasal sinuses are clear. The left mastoid air cells are clear. Opacification of the right middle ear. The visualized portions of the internal carotid arteries, middle cerebral arteries, anterior cerebral arteries, and posterior cerebral arteries are patent. The basilar and vertebral arteries are patent. CTA NECK: Right Carotid System: The common carotid artery and external carotid artery are patent. The carotid bifurcation demonstrate s no evidence of hemodynamically significant stenosis. Approximately 30% stenosis involving the proxi mal right internal carotid artery secondary to noncalcified plaque. The remaining portions of the int ernal carotid artery demonstrate normal size without significant narrowing. Left Carotid System: The common carotid artery and external carotid artery are patent. The carotid bifurcation demonstrate s no evidence of hemodynamically significant stenosis. Approximately 60% stenosis at the proximal lef t internal carotid artery secondary to calcified plaque. The remaining portions of the internal carot id artery demonstrate normal size without significant narrowing. Vertebral arteries are patent without evidence hemodynamically significant stenosis. There is a three-vessel aortic arch. Partially visualized ascending thoracic aorta measures up to 4.3 cm. The origins of the great vessels are patent. No evidence of hemodynamically significant stenosis . Centrilobular emphysematous changes. IMPRESSION: 1. No evidence of dissection of the cervical internal carotid arteries or vertebral arteries. Approxi mately 30% stenosis involving the proximal right internal carotid artery secondary to noncalcified pl aque. Approximately 60% stenosis involving the proximal left internal carotid artery secondary to hudson cified plaque. 2. No evidence of high-grade stenosis or intracranial aneurysm. 3. Ascending thoracic aortic aneurysm measuring up to 4.3 cm. 4. COPD changes. 5. Nonspecific white matter changes likely related to chronic small vessel ischemic disease. 6. Complete opacification of the right mastoid air cells and right middle ear. Correlate for mastoidi tis. Further evaluation with CT IAC is recommended. [facility], , 05/15/2024 2:27 PM
--- NOTE | 2024-05-16 00:29 | EEG ---
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 The video EEG is obtained to evaluate for seizure epileptiform activity. RELEVANT MEDICATION: Unknown per the medical technologist generalist report. EEG TYPE: This is a routine 21-channel EEG with video using the 10/20 electrode placement system. DESCRIPTION: Wakefulness is only obtained. During awake state, the posterior-dominant rhythm consists of [id number] voltage of 8.5 hertz activity that is well modulated, and well sustained. There is no physiological stage 2 sleep architecture. There is no focal slowing. There is mild to moderate diffuse myogenic artifact. Per the medical technologist generalist, the patient was having multiple cough episodes. Interictal and ictal is none. ACTIVATION PROCEDURE: Photic stimulation did not evoke a posterior driving response. There is no abnormality during the photic stimulation. Hyperventilation is not performed. CLINICAL INTERPRETATION: This is a normal routine EEG. There is no focal slowing, epileptiform discharge, or seizure on the EEG. A normal routine EEG does not rule out underlying epilepsy. Clinical correlation is recommended. If there are further concerns of seizure, recommend a sleep-deprived EEG or prolonged EEG. MMODL / IJN: [id number] / [id number]
== END | disposition home or self-care (01) ==
LOC: NEUROMAIN 07:55
PROVIDERS: ATTEND Family Medicine
DX: R47.81 Slurred speech (principal); I63.9 Cerebral infarction, unspecified; J44.9 Chronic obstructive pulmonary disease, unspecified
CPT/HCPCS: 36415; 70496; 70498; 82565; 84520; 95816

== ENCOUNTER → 2024-05-25 | Outpatient (CLI) | payer MEDICARE ==
--- NOTE | 2024-05-30 20:34 | CT ---
EXAMINATION TYPE: CT mastoid wo con DATE OF EXAM: 05/25/2024 COMPARISON: CT 05/15/2024 HISTORY: 68-year-old male G45.9, R57.01 RT SIDE INFECTION TECHNIQUE: CT of the temporal bones without contrast. Coronal and sagittal reconstructions performed. CT DLP: 150 mGycm Automated exposure control for dose reduction was used. FINDINGS: Redemonstrated complete opacification of the right mastoid air cells and right middle ear cavity. No ossicular erosion or bony destruction of the fine septa of the mastoid air cells is identified. The right external auditory canal is clear. The left temporal bone remains clear. Cerumen in the deep left external auditory canal. The internal auditory canal is symmetric side to side. Cochlear and vestibular aqueducts appear satisfactory. Bony labyrinth shows no gross abnormality. Scattered small dental caries. IMPRESSION: 1. REDEMONSTRATED RIGHT-SIDED OTOMASTOIDITIS WITH COMPLETE OPACIFICATION. NO OSSICULAR EROSION OR BON Y DESTRUCTION SEEN. 2. CERUMEN IN LEFT EXTERNAL AUDITORY CANAL. [facility], , 05/30/2024 8:32 PM
== END | disposition home or self-care (01) ==
LOC: RADCTMAIN 15:37
PROVIDERS: ATTEND Family Medicine
CPT/HCPCS: 70486

== ENCOUNTER → 2024-06-09 | Outpatient (CLI) | payer MEDICARE ==
--- NOTE | 2024-06-09 11:23 | CTL ---
EXAMINATION TYPE: CT Low Dose Lung DATE OF EXAM: 06/09/2024 9:20 AM COMPARISON: CT chest 10/24/2022 CLINICAL INDICATION: Male, 68 years old with history of Z12.2 ENCNTR SCREEN FOR MALIGNANT NEOPLASM OF RESP, personal hx of nicotine dependence 1.2 pack per day x 40 years current smoker, Lung cancer scr eening, History of tobacco use. TECHNIQUE: Low dose computed tomography scan was performed through the chest at 1 mm thick sections a nd reconstructed images in the coronal plane at 1 mm thick sections. Contrast used: mL of , (none if empty) Oral contrast used: (none if empty) CT DLP: 83.80 mGycm, Automated exposure control for dose reduction was used. CT CTDI: 2.3 mGy, Automated exposure control for dose reduction was used. SCREENING VISIT: Initial CT DIAGNOSTIC QUALITY: Satisfactory FINDINGS: LUNG NODULES: None. LUNGS: COPD: Severity: Mild. Chronic appearing peribronchial thickening is present. Fibrosis: Severity: None Lymph nodes: r Other findings: None RIGHT PLEURAL SPACE: Effusion: None Calcification: None Thickening: None Pneumothorax: None LEFT PLEURAL SPACE: Effusion: None Calcification: None Thickening: None Pneumothorax: None HEART: Other: Ascending thoracic aorta at the level the main pulmonary artery measures 4.3 cm. The main pul monary artery at the bifurcation measures 3.4 cm. Heart Size: Normal Coronary calcification: Mild Pericardial effusion: None OTHER FINDINGS: Upper abdomen: Normal Bony thorax: Normal Supraclavicular region: Normal IMPRESSION: 1. No suspicious changes to suggest primary or metastatic neoplasm. 2. Mild chronic bronchitis. 3. Ascending thoracic aortic aneurysm 4.[address] CHEST RECOMMENDATION: Follow-up low-dose CT chest one year CT LUNG RAD: Lung-Rad 2 Benign Appearance or Behavior [facility], , 06/09/2024 11:21 AM
== END | disposition home or self-care (01) ==
LOC: RADCTMAIN 08:56
PROVIDERS: ATTEND Family Medicine
DX: Z12.2 Encounter for screening for malignant neoplasm of respiratory organs (principal); J44.9 Chronic obstructive pulmonary disease, unspecified; F17.210 Nicotine dependence, cigarettes, uncomplicated; I71.21 Aneurysm of the ascending aorta, without rupture
CPT/HCPCS: 71271

== ENCOUNTER 2024-07-12 10:44 | Inpatient (IN) | payer MEDICARE, OTHER ==
--- NOTE | 2024-07-12 11:23 | ED ---
General Adult HPI - General Chief complaint: Weakness Stated complaint: Weakness Time Seen by Provider: 07/12/24 10:57 Source: patient, EMS, RN notes reviewed Mode of arrival: EMS Limitations: no limitations - History of Present Illness Initial comments: Patient is a 68-year-old male present to the emergency department for general weakness. Patient has also been having some reported confusion. Patient admits to feeling weak and not eating well over the past month. Patient has otherwise nonspecific symptoms. Patient denies pain. - Related Data Home Medications Medication Instructions Recorded Confirmed tiZANidine HCL [Zanaflex] 4 mg PO DAILY 12/24/18 06/26/23 traZODone HCL [Desyrel] 50 - 100 mg PO HS PRN 12/25/21 06/26/23 Albuterol Sulfate [Ventolin HFA] 2 puff INHALATION RT-Q6H PRN 10/22/22 06/26/23 Apixaban [Eliquis] 5 mg PO BID 10/22/22 06/26/23 Levothyroxine Sodium [Synthroid] 50 mcg PO QAM 10/22/22 06/26/23 icosapent ethyL [Icosapent Ethyl] 2 gm PO DAILY 10/22/22 06/26/23 Doxycycline [Vibramycin] 100 mg PO BID 06/10/23 06/26/23 Metoprolol Succinate (ER) [Toprol 100 mg PO QAM 06/10/23 06/26/23 XL] Omeprazole 20 mg PO DAILY 06/10/23 06/26/23 Previous Rx's Medication Instructions Recorded ALPRAZolam [Xanax] 0.5 mg PO TID PRN #9 tab 07/01/23 Acetaminophen Tab [Tylenol] 650 mg PO Q6HR PRN tab 07/01/23 Gabapentin [Neurontin] 300 mg PO TID #9 cap 07/01/23 HYDROcodone/APAP 5-325MG [[place] 1 each PO Q6HR PRN #12 tab 07/01/23 5-325] Allergies Allergy/AdvReac Type Severity Reaction Status Date / Time codeine Allergy Itching Verified 06/26/23 10:59 onion Allergy Nausea & Verified 06/26/23 10:59 Vomiting & Diarrhea Quinolones Allergy Unknown Verified 06/26/23 10:59 simvastatin [From Zocor] Allergy Unknown Verified 06/26/23 10:59 Review of Systems ROS Statement: Those systems with pertinent positive or pertinent negative responses have been documented in the HPI. ROS Other: All systems not noted in ROS Statement are negative. Constitutional: Denies: fever Eyes: Denies: eye pain ENT: Denies: ear pain Respiratory: Denies: cough, dyspnea Cardiovascular: Denies: chest pain Endocrine: Reports: fatigue Gastrointestinal: Denies: abdominal pain Past Medical History Past Medical History: COPD, Deep Vein Thrombosis (DVT), GERD/Reflux, Hyperlipidemia, Hypertension, Renal Disease, Thyroid Disorder Additional Past Medical History / Comment(s): RIGHT HIP DYSPLASIA, ANEMIA, CHRONIC INFECTION AND ELEVATED INFLAMMATORY MARKERS, DVT, decreased kidney function History of Any Multi-Drug Resistant Organisms: ESBL, MRSA Date of last positivie culture/infection: 02/25/24 - ESBL; UNKNOWN DATE - MRSA MDRO Source:: URINE; RIGHT HIP Past Surgical History: Hernia Repair, Joint Replacement, Orthopedic Surgery, Tonsillectomy Additional Past Surgical History / Comment(s): RT HIP REPLACED MULTIPLE TIMES SINCE THE AGE OF 13-ARTIFICAL HIP HAS SINCE BEEN REMOVED DUE TO ONGOING INFECTION AND PT USES A WHEELCHAIR, LEFT KNEE POLYPS UNDER SKIN REMOVED, LEFT WRIST SURG CHILD Past Anesthesia/Blood Transfusion Reactions: Postoperative Nausea & Vomiting (PONV) Additional Past Anesthesia/Blood Transfusion Reaction / Comment(s): no blood tx reaction Past Psychological History: Anxiety Smoking Status: Current every day smoker Past Alcohol Use History: Daily Past Drug Use History: None Reported, Marijuana - Past Family History Father Family Medical History: Cancer Additional Family Medical History / Comment(s): COLO-RECTAL General Exam Limitations: no limitations General appearance: alert, in no apparent distress Head exam: Present: normocephalic Eye exam: Present: normal appearance, PERRL, EOMI ENT exam: Present: mucous membranes dry Neck exam: Present: normal inspection. Absent: tenderness, meningismus Respiratory exam: Present: rhonchi Cardiovascular Exam: Present: regular rate, normal rhythm GI/Abdominal exam: Present: soft. Absent: tenderness Extremities exam: Present: other (Left leg amputation) Back exam: Present: normal inspection Neurological exam: Present: alert, oriented X3, CN II-XII intact. Absent: motor sensory deficit Expanded Neurological exam: Present: protecting the airway Speech: Present: fluid speech Cranial nerves: EOM's Intact: Normal Motor strength exam: RUE: 5, LUE: 5, RLE: 5, LLE: 5 Eye Response: (4) open spontaneously Motor Response: (6) obeys commands Verbal Response: (5) oriented Psychiatric exam: Present: normal affect, normal mood Skin exam: Present: normal color Course Vital Signs 07/12/24 07/12/24 07/12/24 10:45 11:01 12:40 Temperature 99.0 F Pulse Rate 71 72 105 H Respiratory 20 20 18 Rate Blood Pressure 82/67 94/77 100/85 O2 Sat by Pulse 99 98 96 Oximetry EKG Findings - EKG Results: EKG: interpreted by ERMD (Frequent supraventricular complexes are present. Low QRS voltage. Nonspecific ST-T), sinus rhythm, normal axis EKG shows: tachycardia Medical Decision Making - Medical Decision Making Was pt. sent in by a medical professional or institution (, PA, WATER AEROBICS INSTRUCTOR, urgent care, hospital, or group home...) When possible be specific @ -No Did you speak to anyone other than the patient for history (EMS, parent, family, police, friend...)? What history was obtained from this source @ - arrives and provides additional history the patient has difficulty transferring and has been more confused recently Did you review nursing and triage notes (agree or disagree)? Why? @ -I reviewed and agree with nursing and triage notes Were old charts reviewed (outside hosp., previous admission, EMS record, old EKG, old radiological studies, urgent care reports/EKG's, group home records)? Report findings @ -No old charts were reviewed Differential Diagnosis (chest pain, altered mental status, abdominal pain women, abdominal pain men, vaginal bleeding, weakness, fever, dyspnea, syncope, h eadache, dizziness, GI bleed, back pain, seizure, CVA, palpatations, mental health, musculoskeletal)? @ -Differential Weakness: Hypoglycemia, shock, sepsis, hyponatremia, anemia, infection, [place], ETOH, adverse medicine reaction, overdose, stroke, this is not meant to be an all-inclusive list. EKG interpreted by me (3pts min.). @ -As above X-rays interpreted by me (1pt min.). @ -Chest x-ray shows nonspecific increased interstitial markings, possibly chronic CT interpreted by me (1pt min.). @ -CT brain shows degenerative changes. No acute abnormality. U/S interpreted by me (1pt. min.). @ -None done What testing was considered but not performed or refused? (CT, X-rays, U/S, labs)? Why? @ -None What meds were considered but not given or refused? Why? @ -None Did you discuss the management of the patient with other professionals (professionals i.e. Dr., PA, WATER AEROBICS INSTRUCTOR, lab, RT, psych nurse, family welfare social work professor, shot packer, teacher, reserve officer, case planner)? Give summary @ -Case was discussed with Dr. Reddy who will admit his patient Was smoking cessation discussed for >3mins.? @ -No Was critical care preformed (if so, how long)? @ -No Were there social determinants of health that impacted care today? How? (Homelessness, low income, unemployed, alcoholism, drug addiction, transportatio n, low edu. Level, literacy, decrease access to med. care, snf, rehab)? @ -No Was there de-escalation of care discussed even if they declined (Discuss DNR or withdrawal of care, Hospice)? DNR status @ -No What co-morbidities impacted this encounter? (DM, HTN, Smoking, COPD, CAD, Cancer, CVA, ARF, Chemo, Hep., AIDS, mental health diagnosis, sleep apnea, morbid obesity)? @ -None Was patient admitted / discharged? Hospital course, mention meds given and route, prescriptions, significant lab abnormalities, going to OR and other pertinent info. @ -Patient presents with increased generalized weakness and some mild confusion. Evaluation shows urinary tract infection. Concerns are present for patient wellbeing at home. Patient will be admitted, admission orders written. Undiagnosed new problem with uncertain prognosis? @ -No Drug Therapy requiring intensive monitoring for toxicity (Heparin, Nitro, Insulin, Cardizem)? @ -No Were any procedures done? @ -No Diagnosis/symptom? @ -Weakness, urinary tract infection Acute, or Chronic, or Acute on Chronic? @ -Acute, acute Uncomplicated (without systemic symptoms) or Complicated (systemic symptoms)? @ -Complicated with general weakness and difficulty transferring Side effects of treatment? @ -No Exacerbation, Progression, or Severe Exacerbation? @ -No Poses a threat to life or bodily function? How? (Chest pain, [place], [place], pneumonia, PE, COPD, DKA, ARF, appy, cholecystitis, CVA, Diverticulitis, Homicidal, Suicidal, threat to staff... and all critical care pts) @ -No - Lab Data Result diagrams: 07/12/24 11:30 07/12/24 11:30 Lab Results 07/12/24 07/12/24 07/12/24 Range/Units 11:30 11:30 11:30 WBC 8.4 (3.8-10.6) k/uL RBC 4.21 L (4.30-5.90) m/uL Hgb 14.6 (13.0-17.5) gm/dL Hct 43.8 (39.0-53.0) % MCV 103.9 H (80.0-100.0) fL MCH 34.7 (25.0-35.0) pg MCHC 33.4 (31.0-37.0) g/dL RDW 14.6 (11.5-15.5) % Plt Count 166 (150-450) k/uL MPV 9.7 Neutrophils % 77 % Lymphocytes % 15 % Monocytes % 4 % Eosinophils % 2 % Basophils % 1 % Neutrophils # 6.5 (1.3-7.7) k/uL Lymphocytes # 1.3 (1.0-4.8) k/uL Monocytes # 0.4 (0-1.0) k/uL Eosinophils # 0.1 (0-0.7) k/uL Basophils # 0.1 (0-0.2) k/uL Macrocytosis Slight PT 12.1 (10.0-12.5) sec INR 1.1 (<1.2) APTT 26.0 (22.0-30.0) sec Sodium (137-145) mmol/L Potassium (3.5-5.1) mmol/L Chloride (98-107) mmol/L Carbon Dioxide (22-30) mmol/L Anion Gap mmol/L BUN (9-20) mg/dL Creatinine (0.66-1.25) mg/dL Est GFR (CKD-EPI)AfAm (>60 ml/min/1.73 sqM) Est GFR (CKD-EPI)NonAf (>60 ml/min/1.73 sqM) Glucose (74-99) mg/dL Plasma Lactic Acid Julio (0.7-2.0) mmol/L Calcium (8.4-10.2) mg/dL Magnesium (1.6-2.3) mg/dL Total Bilirubin (0.2-1.3) mg/dL AST (17-59) U/L ALT (4-49) U/L Alkaline Phosphatase (38-126) U/L Troponin I (0.000-0.034) ng/mL Total Protein (6.3-8.2) g/dL Albumin (3.5-5.0) g/dL Urine Color Light [place] Urine Appearance Cloudy (Clear) Urine pH 6.0 (5.0-8.0) Ur Specific [place] 1.023 (1.001-1.035) Urine Protein Trace H (Negative) Urine Glucose (UA) Negative (Negative) Urine Ketones Negative (Negative) Urine Blood Small H (Negative) Urine Nitrite Positive (Negative) Urine Bilirubin 1+ H (Negative) Urine Urobilinogen 6.0 (<2.0) mg/dL Ur Leukocyte Esterase Large H (Negative) Urine RBC 2 (0-5) /hpf Urine WBC 86 H (0-5) /hpf Ur Squamous Epith Cells 1 (0-4) /hpf Urine Bacteria Many H (None) /hpf Urine Mucus Few H (None) /hpf Influenza Type A (PCR) (Not Detectd) Influenza Type B (PCR) (Not Detectd) RSV (PCR) (Not Detectd) SARS-CoV-2 (PCR) (Not Detectd) 07/12/24 07/12/24 07/12/24 Range/Units 11:30 11:30 11:30 WBC (3.8-10.6) k/uL RBC (4.30-5.90) m/uL Hgb (13.0-17.5) gm/dL Hct (39.0-53.0) % MCV (80.0-100.0) fL MCH (25.0-35.0) pg MCHC (31.0-37.0) g/dL RDW (11.5-15.5) % Plt Count (150-450) k/uL MPV Neutrophils % % Lymphocytes % % Monocytes % % Eosinophils % % Basophils % % Neutrophils # (1.3-7.7) k/uL Lymphocytes # (1.0-4.8) k/uL Monocytes # (0-1.0) k/uL Eosinophils # (0-0.7) k/uL Basophils # (0-0.2) k/uL Macrocytosis PT (10.0-12.5) sec INR (<1.2) APTT (22.0-30.0) sec Sodium 141 (137-145) mmol/L Potassium 3.0 L (3.5-5.1) mmol/L Chloride 111 H (98-107) mmol/L Carbon Dioxide 24 (22-30) mmol/L Anion Gap 6 mmol/L BUN 12 (9-20) mg/dL Creatinine 0.84 (0.66-1.25) mg/dL Est GFR (CKD-EPI)AfAm >90 (>60 ml/min/1.73 sqM) Est GFR (CKD-EPI)NonAf >90 (>60 ml/min/1.73 sqM) Glucose 83 (74-99) mg/dL Plasma Lactic Acid Julio 2.1 H* (0.7-2.0) mmol/L Calcium 7.6 L (8.4-10.2) mg/dL Magnesium 1.5 L (1.6-2.3) mg/dL Total Bilirubin 1.0 (0.2-1.3) mg/dL AST 30 (17-59) U/L ALT 15 (4-49) U/L Alkaline Phosphatase 118 (38-126) U/L Troponin I <0.012 (0.000-0.034) ng/mL Total Protein 4.7 L (6.3-8.2) g/dL Albumin 2.0 L (3.5-5.0) g/dL Urine Color Urine Appearance (Clear) Urine pH (5.0-8.0) Ur Specific [place] (1.001-1.035) Urine Protein (Negative) Urine Glucose (UA) (Negative) Urine Ketones (Negative) Urine Blood (Negative) Urine Nitrite (Negative) Urine Bilirubin (Negative) Urine Urobilinogen (<2.0) mg/dL Ur Leukocyte Esterase (Negative) Urine RBC (0-5) /hpf Urine WBC (0-5) /hpf Ur Squamous Epith Cells (0-4) /hpf Urine Bacteria (None) /hpf Urine Mucus (None) /hpf Influenza Type A (PCR) (Not Detectd) Influenza Type B (PCR) (Not Detectd) RSV (PCR) (Not Detectd) SARS-CoV-2 (PCR) (Not Detectd) 07/12/24 Range/Units 11:30 WBC (3.8-10.6) k/uL RBC (4.30-5.90) m/uL Hgb (13.0-17.5) gm/dL Hct (39.0-53.0) % MCV (80.0-100.0) fL MCH (25.0-35.0) pg MCHC (31.0-37.0) g/dL RDW (11.5-15.5) % Plt Count (150-450) k/uL MPV Neutrophils % % Lymphocytes % % Monocytes % % Eosinophils % % Basophils % % Neutrophils # (1.3-7.7) k/uL Lymphocytes # (1.0-4.8) k/uL Monocytes # (0-1.0) k/uL Eosinophils # (0-0.7) k/uL Basophils # (0-0.2) k/uL Macrocytosis PT (10.0-12.5) sec INR (<1.2) APTT (22.0-30.0) sec Sodium (137-145) mmol/L Potassium (3.5-5.1) mmol/L Chloride (98-107) mmol/L Carbon Dioxide (22-30) mmol/L Anion Gap mmol/L BUN (9-20) mg/dL Creatinine (0.66-1.25) mg/dL Est GFR (CKD-EPI)AfAm (>60 ml/min/1.73 sqM) Est GFR (CKD-EPI)NonAf (>60 ml/min/1.73 sqM) Glucose (74-99) mg/dL Plasma Lactic Acid Julio (0.7-2.0) mmol/L Calcium (8.4-10.2) mg/dL Magnesium (1.6-2.3) mg/dL Total Bilirubin (0.2-1.3) mg/dL AST (17-59) U/L ALT (4-49) U/L Alkaline Phosphatase (38-126) U/L Troponin I (0.000-0.034) ng/mL Total Protein (6.3-8.2) g/dL Albumin (3.5-5.0) g/dL Urine Color Urine Appearance (Clear) Urine pH (5.0-8.0) Ur Specific [place] (1.001-1.035) Urine Protein (Negative) Urine Glucose (UA) (Negative) Urine Ketones (Negative) Urine Blood (Negative) Urine Nitrite (Negative) Urine Bilirubin (Negative) Urine Urobilinogen (<2.0) mg/dL Ur Leukocyte Esterase (Negative) Urine RBC (0-5) /hpf Urine WBC (0-5) /hpf Ur Squamous Epith Cells (0-4) /hpf Urine Bacteria (None) /hpf Urine Mucus (None) /hpf Influenza Type A (PCR) Not Detected (Not Detectd) Influenza Type B (PCR) Not Detected (Not Detectd) RSV (PCR) Not Detected (Not Detectd) SARS-CoV-2 (PCR) Not Detected (Not Detectd) Disposition Clinical Impression: Weakness, Urinary tract infection Disposition: ADMITTED IP TO THIS HOSP Is patient prescribed a controlled substance at d/c from ED?: No Referrals: Raphael Reddy MD [Primary Care Provider] - 1-2 days Time of Disposition: 13:24
[2024-07-12 11:49] LABS: Basophils # (A) 0.1 k/uL (0-0.2); Basophils % (A) 1 %; Eosinophils # (A) 0.1 k/uL (0-0.7); Eosinophils % (A) 2 %; HCT 43.8 % (39.0-53.0); HGB 14.6 gm/dL (13.0-17.5); Lymphocytes # (A) 1.3 k/uL (1.0-4.8); Lymphocytes % (A) 15 %; MCH 34.7 pg (25.0-35.0); MCHC 33.4 g/dL (31.0-37.0); MCV 103.9 fL (80.0-100.0); Macrocytosis Slight; Mean Platelet Volume 9.7; Monocytes # (A) 0.4 k/uL (0-1.0); Monocytes % (A) 4 %; Neutrophils # (A) 6.5 k/uL (1.3-7.7); Neutrophils % (A) 77 %; Platelet Count 166 k/uL (150-450); RBC 4.21 m/uL (4.30-5.90); RDW 14.6 % (11.5-15.5); WBC 8.4 k/uL (3.8-10.6)
[2024-07-12 11:50] LABS: ALT 15 U/L (4-49); AST 30 U/L (17-59); African American GFR (CKD) >90 (>60 ml/min/1.73 sqM); Alkaline Phosphatase 118 U/L (38-126); Anion Gap 6 mmol/L; Blood Urea Nitrogen 12 mg/dL (9-20); Calcium 7.6 mg/dL (8.4-10.2); Carbon Dioxide 24 mmol/L (22-30); Chloride 111 mmol/L (98-107); Glucose 83 mg/dL (74-99); Magnesium 1.5 mg/dL (1.6-2.3); Non-African American GFR(CKD) >90 (>60 ml/min/1.73 sqM); Sodium 141 mmol/L (137-145); Total Protein 4.7 g/dL (6.3-8.2)
[2024-07-12] MEDS: SODIUM CHLORIDE 0.9% 1,000 ML IV STA (11:51)
[2024-07-12] MEDS: cefTRIAXone IN SWFI 1,000 MG/10 ML SYRINGE IVP STA (11:52)
[2024-07-12 12:06] LABS: INR 1.1 (<1.2); Prothrombin Time 12.1 sec (10.0-12.5)
[2024-07-12 12:11] LABS: Appearance,Urine Cloudy (Clear); Bacteria,Urine Many /hpf; Bilirubin,Urine 1+ (Negative); Blood,Urine Small (Negative); Color,Urine Light Orange; Glucose,Urine (UA) Negative (Negative); Ketones,Urine Negative (Negative); Leukocyte Esterase,Urine Large (Negative); Mucus,Urine Few /hpf; Nitrite,Urine Positive (Negative); Protein,Urine Trace (Negative); RBC,Urine 2 /hpf (0-5); Specific Gravity,Urine 1.023 (1.001-1.035); Squamous Epithelial Cell,Urine 1 /hpf (0-4); WBC,Urine 86 /hpf (0-5)
--- NOTE | 2024-07-12 12:36 | XR ---
2 view chest HISTORY: Weakness COMPARISON: None TECHNIQUE: PA and lateral views chest obtained. FINDINGS: There is prominent interstitial markings throughout both lungs raising the question of mild pulmonary vascular congestion although the findings could be chronic in nature given the lack of prior study f or comparison. There is no airspace consolidation. There are small bilateral pleural effusions. The heart size is within upper limits of normal. The osseous structures are intact... IMPRESSION: Chronic interstitial changes versus mild pulmonary vascular congestion. There are small bilateral ple ural effusions. The findings raise the question of CHF [facility], , 07/12/2024 12:34 PM
--- NOTE | 2024-07-12 12:41 | CT ---
EXAMINATION TYPE: CT brain wo con DATE OF EXAM: 07/12/2024 COMPARISON: None CLINICAL INDICATION: Male, 68 years old with history of weakness; PHH, Weakness CT DLP: 1243.4 mGycm Automated exposure control for dose reduction was used. Findings: The ventricles, basal cisterns and sulci over the convexities are markedly enlarged consistent with m arked generalized atrophy. There is moderate decreased density in the periventricular white matter consistent with chronic ische jaimee white matter demyelination. There are 2 small remote lacunar infarcts in the right basal ganglia. There is no mass effect or shif t in midline structures. There is no acute intra or extra-axial hemorrhage. The posterior fossa including the brainstem, fourth ventricle and cerebellar pontine angles appear no rmal. Intraorbital contents appear normal and symmetric. Visualized paranasal sinuses and mastoid air cells are well aerated. The calvarium is intact. IMPRESSION: 1. No acute bleed or mass effect. 2. Marked generalized atrophy and moderate chronic ischemic white matter amount administration. 3. 2 tiny remote lacunar infarcts in the right basal ganglia. [facility], , 07/12/2024 12:38 PM
[2024-07-12] MEDS ORDERED: ACETAMINOPHEN TAB 325 MG TAB PO PRN (13:25)
[2024-07-12] MEDS ORDERED: NALOXONE 0.4 MG/ML 1 ML VIAL IV PRN (13:25)
[2024-07-12] MEDS: SODIUM CHLORIDE 0.9% 1,000 ML IV SCH (14:40)
[2024-07-12] MEDS: POTASSIUM CHLORIDE ER 20 MEQ TAB.ER PO SCH (15:20)
[2024-07-12] MEDS: MAGNESIUM OXIDE 400 MG TAB PO SCH (15:20)
[2024-07-12] MEDS ORDERED: traZODone HCL 100 MG TAB PO PRN (16:13)
[2024-07-12] MEDS: ALPRAZolam 1 MG TAB PO PRN (16:41)
[2024-07-12] MEDS: NON FORMULARY DRUG (Icosapent Ethyl [Icosapent Ethyl] 1 GM Capsule) PO SCH (20:51)
[2024-07-12] MEDS: APIXABAN 5 MG TAB PO SCH (20:59)
[2024-07-12] MEDS: ACETAMINOPHEN IV (For NPO) 1,000 MG in EMPTY BAG 1 BAG IVPB ONE (22:05)
[2024-07-13 03:34] LABS: Glucose,Whole Blood 83 mg/dL (70-110)
[2024-07-13] MEDS: SODIUM CHLORIDE 0.9% 1,000 ML IV ONE (03:36)
[2024-07-13] MEDS: NOREPINEPHRINE 4 MG in SODIUM CHLORIDE 0.9% 250 ML IV SCH (03:48)
[2024-07-13 04:16] LABS: ABG HCO3 23 mmol/L (21-25); ABG PCO2 52 mmHg (35-45); ABG PH 7.26 (7.35-7.45); ABG PO2 321 mmHg (83-108); ABG TCO2 25 mmol/L (19-24)
[2024-07-13] MEDS: VASOPRESSIN 20 UNIT in SODIUM CHLORIDE 0.9% 50 ML IV SCH (04:25)
[2024-07-13 04:27] LABS: Allen Test Performed? no
--- NOTE | 2024-07-13 04:37 | ED ---
Medical Decision Making - Medical Decision Making I was called to the bedside while the patient was being made a team while in the emergency department. The patient had agonal respirations and blood pressure in the 50s over 30s per the monitor. I did attempt to arouse the patient there was no response, GCS was 3 and the patient therefore intubated for airway protection and respiratory failure. Please see the note. The patient also required additional line for pressors, and I attempted to place a central line in the right femoral area. I cannulated the vessel but was not able to visualize where the needle had penetrated on the ultrasound machine. Given emergent nature I did place the line when the patient's blood pressure improved. It did become apparent that the line was in the femoral artery. In light of this we will use the line for an A-line. Case discussed with midlevel practitioner from the pulmonology service, [facility] who is aware and they will not give medications through this line, but can use it to perform blood draws and arterial pressure monitoring. Evaluate the patient 30 minutes later and there was hematoma developing at the site therefore the line discontinued and pressure held. - Lab Data Result diagrams: 07/13/24 05:20 07/13/24 09:18 Lab Results 07/12/24 07/12/24 07/12/24 Range/Units 11:30 11:30 11:30 WBC 8.4 (3.8-10.6) k/uL RBC 4.21 L (4.30-5.90) m/uL Hgb 14.6 (13.0-17.5) gm/dL Hct 43.8 (39.0-53.0) % MCV 103.9 H (80.0-100.0) fL MCH 34.7 (25.0-35.0) pg MCHC 33.4 (31.0-37.0) g/dL RDW 14.6 (11.5-15.5) % Plt Count 166 (150-450) k/uL MPV 9.7 Neutrophils % 77 % Lymphocytes % 15 % Monocytes % 4 % Eosinophils % 2 % Basophils % 1 % Neutrophils # 6.5 (1.3-7.7) k/uL Lymphocytes # 1.3 (1.0-4.8) k/uL Monocytes # 0.4 (0-1.0) k/uL Eosinophils # 0.1 (0-0.7) k/uL Basophils # 0.1 (0-0.2) k/uL Macrocytosis Slight PT 12.1 (10.0-12.5) sec INR 1.1 (<1.2) APTT 26.0 (22.0-30.0) sec Sodium (137-145) mmol/L Potassium (3.5-5.1) mmol/L Chloride (98-107) mmol/L Carbon Dioxide (22-30) mmol/L Anion Gap mmol/L BUN (9-20) mg/dL Creatinine (0.66-1.25) mg/dL Est GFR (CKD-EPI)AfAm (>60 ml/min/1.73 sqM) Est GFR (CKD-EPI)NonAf (>60 ml/min/1.73 sqM) Glucose (74-99) mg/dL Lactic Ac Sepsis Rflx Plasma Lactic Acid Julio (0.7-2.0) mmol/L Calcium (8.4-10.2) mg/dL Magnesium (1.6-2.3) mg/dL Total Bilirubin (0.2-1.3) mg/dL AST (17-59) U/L ALT (4-49) U/L Alkaline Phosphatase (38-126) U/L Troponin I (0.000-0.034) ng/mL Total Protein (6.3-8.2) g/dL Albumin (3.5-5.0) g/dL Urine Color Light [place] Urine Appearance Cloudy (Clear) Urine pH 6.0 (5.0-8.0) Ur Specific [place] 1.023 (1.001-1.035) Urine Protein Trace H (Negative) Urine Glucose (UA) Negative (Negative) Urine Ketones Negative (Negative) Urine Blood Small H (Negative) Urine Nitrite Positive (Negative) Urine Bilirubin 1+ H (Negative) Urine Urobilinogen 6.0 (<2.0) mg/dL Ur Leukocyte Esterase Large H (Negative) Urine RBC 2 (0-5) /hpf Urine WBC 86 H (0-5) /hpf Ur Squamous Epith Cells 1 (0-4) /hpf Urine Bacteria Many H (None) /hpf Urine Mucus Few H (None) /hpf Influenza Type A (PCR) (Not Detectd) Influenza Type B (PCR) (Not Detectd) RSV (PCR) (Not Detectd) SARS-CoV-2 (PCR) (Not Detectd) 07/12/24 07/12/24 07/12/24 Range/Units 11:30 11:30 11:30 WBC (3.8-10.6) k/uL RBC (4.30-5.90) m/uL Hgb (13.0-17.5) gm/dL Hct (39.0-53.0) % MCV (80.0-100.0) fL MCH (25.0-35.0) pg MCHC (31.0-37.0) g/dL RDW (11.5-15.5) % Plt Count (150-450) k/uL MPV Neutrophils % % Lymphocytes % % Monocytes % % Eosinophils % % Basophils % % Neutrophils # (1.3-7.7) k/uL Lymphocytes # (1.0-4.8) k/uL Monocytes # (0-1.0) k/uL Eosinophils # (0-0.7) k/uL Basophils # (0-0.2) k/uL Macrocytosis PT (10.0-12.5) sec INR (<1.2) APTT (22.0-30.0) sec Sodium 141 (137-145) mmol/L Potassium 3.0 L (3.5-5.1) mmol/L Chloride 111 H (98-107) mmol/L Carbon Dioxide 24 (22-30) mmol/L Anion Gap 6 mmol/L BUN 12 (9-20) mg/dL Creatinine 0.84 (0.66-1.25) mg/dL Est GFR (CKD-EPI)AfAm >90 (>60 ml/min/1.73 sqM) Est GFR (CKD-EPI)NonAf >90 (>60 ml/min/1.73 sqM) Glucose 83 (74-99) mg/dL Lactic Ac Sepsis Rflx Plasma Lactic Acid Julio 2.1 H* (0.7-2.0) mmol/L Calcium 7.6 L (8.4-10.2) mg/dL Magnesium 1.5 L (1.6-2.3) mg/dL Total Bilirubin 1.0 (0.2-1.3) mg/dL AST 30 (17-59) U/L ALT 15 (4-49) U/L Alkaline Phosphatase 118 (38-126) U/L Troponin I <0.012 (0.000-0.034) ng/mL Total Protein 4.7 L (6.3-8.2) g/dL Albumin 2.0 L (3.5-5.0) g/dL Urine Color Urine Appearance (Clear) Urine pH (5.0-8.0) Ur Specific [place] (1.001-1.035) Urine Protein (Negative) Urine Glucose (UA) (Negative) Urine Ketones (Negative) Urine Blood (Negative) Urine Nitrite (Negative) Urine Bilirubin (Negative) Urine Urobilinogen (<2.0) mg/dL Ur Leukocyte Esterase (Negative) Urine RBC (0-5) /hpf Urine WBC (0-5) /hpf Ur Squamous Epith Cells (0-4) /hpf Urine Bacteria (None) /hpf Urine Mucus (None) /hpf Influenza Type A (PCR) (Not Detectd) Influenza Type B (PCR) (Not Detectd) RSV (PCR) (Not Detectd) SARS-CoV-2 (PCR) (Not Detectd) 07/12/24 07/12/24 Range/Units 11:30 11:55 WBC (3.8-10.6) k/uL RBC (4.30-5.90) m/uL Hgb (13.0-17.5) gm/dL Hct (39.0-53.0) % MCV (80.0-100.0) fL MCH (25.0-35.0) pg MCHC (31.0-37.0) g/dL RDW (11.5-15.5) % Plt Count (150-450) k/uL MPV Neutrophils % % Lymphocytes % % Monocytes % % Eosinophils % % Basophils % % Neutrophils # (1.3-7.7) k/uL Lymphocytes # (1.0-4.8) k/uL Monocytes # (0-1.0) k/uL Eosinophils # (0-0.7) k/uL Basophils # (0-0.2) k/uL Macrocytosis PT (10.0-12.5) sec INR (<1.2) APTT (22.0-30.0) sec Sodium (137-145) mmol/L Potassium (3.5-5.1) mmol/L Chloride (98-107) mmol/L Carbon Dioxide (22-30) mmol/L Anion Gap mmol/L BUN (9-20) mg/dL Creatinine (0.66-1.25) mg/dL Est GFR (CKD-EPI)AfAm (>60 ml/min/1.73 sqM) Est GFR (CKD-EPI)NonAf (>60 ml/min/1.73 sqM) Glucose (74-99) mg/dL Lactic Ac Sepsis Rflx Y Plasma Lactic Acid Julio (0.7-2.0) mmol/L Calcium (8.4-10.2) mg/dL Magnesium (1.6-2.3) mg/dL Total Bilirubin (0.2-1.3) mg/dL AST (17-59) U/L ALT (4-49) U/L Alkaline Phosphatase (38-126) U/L Troponin I (0.000-0.034) ng/mL Total Protein (6.3-8.2) g/dL Albumin (3.5-5.0) g/dL Urine Color Urine Appearance (Clear) Urine pH (5.0-8.0) Ur Specific [place] (1.001-1.035) Urine Protein (Negative) Urine Glucose (UA) (Negative) Urine Ketones (Negative) Urine Blood (Negative) Urine Nitrite (Negative) Urine Bilirubin (Negative) Urine Urobilinogen (<2.0) mg/dL Ur Leukocyte Esterase (Negative) Urine RBC (0-5) /hpf Urine WBC (0-5) /hpf Ur Squamous Epith Cells (0-4) /hpf Urine Bacteria (None) /hpf Urine Mucus (None) /hpf Influenza Type A (PCR) Not Detected (Not Detectd) Influenza Type B (PCR) Not Detected (Not Detectd) RSV (PCR) Not Detected (Not Detectd) SARS-CoV-2 (PCR) Not Detected (Not Detectd) Disposition Clinical Impression: Weakness, Urinary tract infection Disposition: ADMITTED IP TO THIS HOSP Procedures - Central Line Placement Right Femoral Consent Obtained: emergent situation Patient Placed on Monitor/Pulse Ox: Yes Prep: mask, gown, gloves Central Line Prep: Chlorhexidine scrub Local Anesthesia Used: Lidocaine 1% Ultrasound Used for Placement: Yes Central Line Lumen Inserted: triple Central Line Position: good blood return, all ports aspirated, flushed, capped, sutured in place with 3-0 nylon Patient Tolerated Procedure: well Complications: arterial puncture/cannulation - Intubation Sedative: Etomidate Laryngoscope: Bhargav Size: 3 ET Tube Size: 8 ET Tube Uncuffed: Yes Tube Placement Confirmation: visualized tube passing through cords, equal breath sounds bilaterally, no breath sounds over epigastrium, confirmation by capnometry Patient Tolerated Procedure: well, no complications Intubation Complications: none
[2024-07-13 04:45] LABS: INR 1.4 (<1.2); Partial Thromboplastin Time 26.5 sec (22.0-30.0); Prothrombin Time 14.6 sec (10.0-12.5)
[2024-07-13 04:47] LABS: HCT 29.6 % (39.0-53.0); Hypochromasia Marked; MCH 34.7 pg (25.0-35.0); MCHC 31.6 g/dL (31.0-37.0); Macrocytosis Marked; Mean Platelet Volume 9.5; Platelet Count 136 k/uL (150-450); RBC 2.69 m/uL (4.30-5.90); RDW 14.5 % (11.5-15.5); WBC 7.5 k/uL (3.8-10.6)
[2024-07-13 04:50] LABS: HGB 9.3 gm/dL (13.0-17.5); MCV 109.8 fL (80.0-100.0)
[2024-07-13 05:07] LABS: Band Neutrophils % 3 %; Neutrophils % (M) 89 %; Nucleated Red Blood Cells 0 /100 WBC (0-0); Total Cells Counted 100
[2024-07-13 05:08] LABS: Crenated RBC Present; Hypersegmented Neutrophils Present
--- NOTE | 2024-07-13 05:08 | XR ---
EXAM: XR Chest, 1 View CLINICAL HISTORY: ITS.REASON XR Reason: ETT placement TECHNIQUE: Frontal view of the chest. COMPARISON: X-ray dated 07/12/2024 FINDINGS: Lungs: New confluent opacity seen within the right mid to lower lung. The left lung is clear. Pleural space: New right-sided pleural effusion. No pneumothorax. Heart: Mild prominence of the cardiac silhouette. Mediastinum: Unremarkable. Normal mediastinal contour. Bones/joints: Degenerative changes are seen within the spine and shoulders. No acute fracture. Tubes, lines and devices: Endotracheal tube is in place with the tip terminating 4.8 cm from the jason. IMPRESSION: 1. Endotracheal tube as above. 2. Right basilar effusion and new consolidative changes seen within the right lung which may represent atelectasis versus pneumonia.
--- NOTE | 2024-07-13 05:21 | CT ---
EXAMINATION TYPE: CT brain wo con DATE OF EXAM: 07/13/2024 COMPARISON: Prior CT when the earlier CLINICAL INDICATION: Male, 68 years old with history of AMS; [facility], TECHNIQUE: CT scan of the head is performed without contrast. CT DLP: [address] CTDI: 49 mGy Automated exposure control for dose reduction was used. FINDINGS: There is no acute intracranial hemorrhage or midline shift identified. There is moderate diffuse ventricular and sulcal prominence redemonstrated. There is moderate low-attenuation in the p eriventricular white matter again seen. Bilateral aphakia is redemonstrated. Prominent CSF inferior a spect posterior fossa is again seen. Suspect jacky cisterna magna. Partial visualization of endotrache al and orogastric tubes is noted. Paranasal sinuses are grossly clear. IMPRESSION: No acute intracranial hemorrhage or midline shift. There is moderate diffuse age-relat ed cerebral atrophy and chronic small vessel ischemic change redemonstrated. No significant change f rom prior. [facility], , 07/13/2024 5:19 AM
--- NOTE | 2024-07-13 05:28 | CT ---
EXAMINATION TYPE: CT angio chest DATE OF EXAM: 07/13/2024 COMPARISON: Prior CT chest October 24, 2022 HISTORY: Hypotension, increased weakness CT DLP: 450 mGycm. Automated Exposure Control for Dose Reduction was Utilized. CONTRAST: CTA scan of the thorax is performed with IV Contrast, patient injected with 100 mL of Isovue 300, pul monary embolism protocol. MIP Images are created on CT scanner and reviewed. FINDINGS: LUNGS: There is tiny left pleural effusion. There is small size right pleural effusion. There is asso ciated posterior right lung atelectasis and/or consolidation. Background mild to moderate underlying emphysematous changes present. There is some dependent groundglass opacity and consolidation along th e major fissure in the left lung. Mild left basilar dependent atelectasis. Additional groundglass opa city and ill-defined consolidation in the right middle lobe and posterior aspect of the right upper l obe. No pneumothorax is seen bilaterally. MEDIASTINUM: There is satisfactory enhancement of the pulmonary artery and its branches, there is hyp odensity consistent with partial occlusive pulmonary embolism the distal right pulmonary artery seen best near axial image 77. There is extension into the right upper and middle lobes. Subsegmental bra nch in the left lower lobe is present. There is no mediastinal shift to the right. Coronary artery ca lcification is redemonstrated. Right ventricular dilatation remains present but was present on prior. RV/LV ratio over 1.0 estimated 1.45. No pericardial effusion. New endotracheal tube terminates at th e aortic knob level. OTHER: Scoliosis is present. IMPRESSION: 1. New bilateral acute pulmonary emboli with large right sided thrombus present. Cannot exclude RV st rain on CT. 2. Small to tiny right greater than left pleural effusions. Bilateral groundglass opacities and conso lidations or prominent on the right with right-sided volume loss favoring significant right-sided ate lectasis. Results communicated to ordering emergency room physician at time of dictation. [facility], , 07/13/2024 5:26 AM
[2024-07-13] MEDS ORDERED: HEPARIN SODIUM 1,000 UN/ML (10ML VL) IV PRN (05:32)
[2024-07-13 05:50] LABS: Basophils # (A) 0.1 k/uL (0-0.2); Basophils % (A) 1 %; Eosinophils # (A) 0.1 k/uL (0-0.7); Eosinophils % (A) 1 %; HCT 42.7 % (39.0-53.0); Hypochromasia Marked; Lymphocytes # (A) 1.1 k/uL (1.0-4.8); Lymphocytes % (A) 9 %; MCHC 31.1 g/dL (31.0-37.0); MCV 109.3 fL (80.0-100.0); Macrocytosis Marked; Monocytes # (A) 0.7 k/uL (0-1.0); Monocytes % (A) 5 %; Neutrophils # (A) 10.4 k/uL (1.3-7.7); Neutrophils % (A) 84 %; Platelet Count 206 k/uL (150-450); RBC 3.91 m/uL (4.30-5.90); RDW 14.5 % (11.5-15.5); WBC 12.4 k/uL (3.8-10.6)
[2024-07-13] MEDS: HEPARIN SODIUM 1,000 UN/ML (10ML VL) IV ONE ×2 (05:50→17:46)
[2024-07-13] MEDS: HEPARIN SOD,PORK IN 0.45% NACL 25,000 UNIT in 0.45% NACL 1 250ML.BAG IV SCH (05:52)
[2024-07-13 05:54] LABS: HGB 13.3 gm/dL (13.0-17.5)
[2024-07-13] MEDS: SODIUM CHLORIDE 0.9% 500 ML 500 ML IV ONE (06:03)
--- NOTE | 2024-07-13 06:38 | P.CNPUL ---
History of Present Illness Consult date: 07/13/24 Requesting physician: Raphael Reddy Reason for consult: other (ICU management) Chief complaint: Altered mental status and weakness History of present illness: Patient is a 68-year-old male with past medical history significant for COPD, chronic ongoing tobacco use, right DVT, severe peripheral arterial disease, prior left AKA, hyperlipidemia, hypertension, hypothyroidism, daily alcohol use, etc. Patient presented to the ED yesterday afternoon with a chief concern of generalized weakness. Patient was admitted to the general medical floor with a diagnosis of suspected UTI/sepsis. He was down in the emergency department as a hold patient. Early this morning, rapid response was called overhead. Patient was found unresponsive, agonal respirations, blood pressure 50s/30s mmHg. Patient was intubated in the ED by Dr. Wheeler for airway protection. Patient was then started on multiple vasopressors including norepinephrine which is infusing at 0.2 mcg/kg/min. Vasopressin infusing at 0.04 units/min. He is also received a total of 2.5 L normal saline bolus postintubation. Patient is currently intubated to the mechanical ventilator. Initial ventilator settings AC, 20, tidal volume 400, FiO2 100%, PEEP of 5. ABGs taken 30 minutes after intubation include a PaO2 of 321, pCO2 of 52, pH of 7.26. Ventilator settings were adjusted with a rate of 24 and FiO2 dropped to 50%. Post intubation chest x-ray showing endotracheal tube slightly proximal at 5 cm above the jason. Bilateral multifocal infiltrates concerning for pneumonia. Patient has thick yellow secretions coming from endotracheal tube. Peak airway pressures 22. Patient is currently synchronous with ventilator settings. Sedated on propofol which is infusing at 5 mcg/kg/min. He does arouse and follow commands appropriately. CBC from admission: WBC count 8.4, hemoglobin 14.6, hematocrit 43.8, platelets 166. Coagulation profile PT 12, INR 1.1, APTT 26. CMP: Sodium 141, potassium 3, chloride 111, serum bicarb 24, BUN 12, creatinine 0.84, glucose 83. Magnesium 1.5. Lactic nonelevated at 1.5. Troponin is less than 0.012. Urinalysis positive with nitrates, leukocyte Estrace, bacteria. 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 coli. Negative for influenza, RSV, COVID. Patient is currently being evaluated in the emergency department, trauma bay 2. Remains in critical condition. On multiple vasopressors as mentioned above. Current blood pressure is 83/45 mmHg. patient does have History of DVT. Chest CT angio protocol pen amber. Past Medical History Past Medical History: COPD, Deep Vein Thrombosis (DVT), GERD/Reflux, Hyperlipidemia, Hypertension, Renal Disease, Thyroid Disorder Additional Past Medical History / Comment(s): RIGHT HIP DYSPLASIA, ANEMIA, CHRONIC INFECTION AND ELEVATED INFLAMMATORY MARKERS, DVT, decreased kidney function History of Any Multi-Drug Resistant Organisms: ESBL, MRSA Date of last positivie culture/infection: 02/25/24 - ESBL; UNKNOWN DATE - MRSA MDRO Source:: URINE; RIGHT HIP Past Surgical History: Hernia Repair, Joint Replacement, Orthopedic Surgery, Tonsillectomy Additional Past Surgical History / Comment(s): RT HIP REPLACED MULTIPLE TIMES SINCE THE AGE OF 13-ARTIFICAL HIP HAS SINCE BEEN REMOVED DUE TO ONGOING INFECTION AND PT USES A WHEELCHAIR, LEFT KNEE POLYPS UNDER SKIN REMOVED, LEFT WRIST SURG CHILD Past Anesthesia/Blood Transfusion Reactions: Postoperative Nausea & Vomiting (PONV) Additional Past Anesthesia/Blood Transfusion Reaction / Comment(s): no blood tx reaction Past Psychological History: Anxiety Smoking Status: Current every day smoker Past Alcohol Use History: Daily Past Drug Use History: None Reported, Marijuana - Past Family History Father Family Medical History: Cancer Additional Family Medical History / Comment(s): COLO-RECTAL Medications and Allergies Home Medications Medication Instructions Recorded Confirmed Type tiZANidine HCL [Zanaflex] 4 mg PO DAILY 12/24/18 07/12/24 History Apixaban [Eliquis] 5 mg PO BID 10/22/22 07/12/24 History icosapent ethyL [Icosapent Ethyl] 2 gm PO BID 10/22/22 07/12/24 History Metoprolol Succinate (ER) [Toprol 100 mg PO DAILY 06/10/23 07/12/24 History XL] Omeprazole 20 mg PO DAILY 06/10/23 07/12/24 History ALPRAZolam [Xanax] 1 mg PO TID PRN 07/12/24 07/12/24 History Levothyroxine Sodium [Synthroid] 75 mcg PO DAILY 07/12/24 07/12/24 History Nystatin 100,000Unit/gm Cream 1 applic TOPICAL QID 07/12/24 07/12/24 History [Mycostatin Cream] lisinopriL [Zestril] 40 mg PO DAILY 07/12/24 07/12/24 History traZODone HCL [Desyrel] 100 mg PO HS PRN 07/12/24 07/12/24 History Allergies Allergy/AdvReac Type Severity Reaction Status Date / Time codeine Allergy Itching Verified 06/26/23 10:59 onion Allergy Nausea & Verified 06/26/23 10:59 Vomiting & Diarrhea Quinolones Allergy Unknown Verified 06/26/23 10:59 simvastatin [From Zocor] Allergy Unknown Verified 06/26/23 10:59 Physical Exam Vitals: Vital Signs Temp Pulse Resp BP Pulse Ox FiO2 07/13/24 04:26 50 07/13/24 04:19 106 H 20 91/62 07/13/24 04:10 102 H 20 95/70 07/13/24 04:06 115 H 105/78 07/13/24 04:04 109 H 85/63 07/13/24 03:59 100 07/13/24 03:57 100 07/13/24 03:56 100 78/63 07/13/24 03:53 112 H 66/48 99 07/13/24 03:48 110 H 69/40 07/13/24 03:45 82/35 07/13/24 01:40 99.8 F H 110 H 20 82/63 92 L 07/13/24 00:24 98.8 F 112 H 22 106/68 94 L 07/12/24 21:22 100.9 F H 121 H 22 97/62 92 L 07/12/24 20:59 98.4 F 116 H 24 119/47 93 L 07/12/24 18:54 112 H 20 98/68 93 L 07/12/24 18:05 105 H 20 85/65 94 L 07/12/24 16:44 98.5 F 105 H 20 96/67 96 07/12/24 14:38 102 H 20 109/89 95 07/12/24 12:40 105 H 18 100/85 96 07/12/24 11:01 72 20 94/77 98 07/12/24 10:45 99.0 F 71 20 82/67 99 Intake and Output 07/12/24 07/12/24 07/13/24 14:59 22:59 06:59 Output Total 200 Balance -200 Output: Urine 200 Straight 200 Other: Voiding Method Diaper Weight 95.254 kg 68 kg GENERAL EXAM: Sedated 68-year-old male, intubated mechanical ventilator, synchronous with set rate. HEAD: Normocephalic and atraumatic EYES: Normal reaction of pupils, equal size. NOSE: Clear with pink turbinates. THROAT: No erythema or exudates. NECK: No masses, mild JVD. CHEST: No chest wall deformity. LUNGS: Equal air entry with diffuse rhonchi bilaterally. Intubated mechanical ventilator. Thick yellow endotracheal secretions. Peak pressures 20. CVS: S1 and S2 normal with no audible murmur, regular rhythm. No extra heart sounds ABDOMEN: No hepatosplenomegaly, active bowel sounds, no guarding or rigidity. SPINE: No scoliosis or deformity SKIN: No rashes CENTRAL NERVOUS SYSTEM: Sedated on propofol, arouses and follows commands appropriately. EXTREMITIES: Prior left AKA. Right groin hematoma from previous arteriotomy, which is outlined. Right posterior tib pulses found with Doppler. Weak thready pulses and cyanotic peripheral lower extremities. Results - Laboratory Findings CBC and BMP: 07/13/24 05:20 07/12/24 11:30 ABG ABG pH 7.26 (7.35-7.45) L 07/13/24 04:10 ABG pCO2 52 mmHg (35-45) H 07/13/24 04:10 ABG pO2 321 mmHg (83-108) H 07/13/24 04:10 ABG O2 Saturation 100.0 % (94-97) H 07/13/24 04:10 PT/INR, D-dimer PT 14.6 sec (10.0-12.5) H 07/13/24 04:21 INR 1.4 (<1.2) H 07/13/24 04:21 Abnormal lab findings: Abnormal Labs 07/12/24 07/12/24 07/12/24 11:30 11:30 11:30 RBC 4.21 L Hgb Hct MCV 103.9 H Plt Count Lymphocytes # (Manual) Macrocytosis PT INR ABG pH ABG pCO2 ABG pO2 ABG Total CO2 ABG O2 Saturation Hemoglobin Potassium 3.0 L Chloride 111 H Plasma Lactic Acid Julio Calcium 7.6 L Magnesium 1.5 L Total Protein 4.7 L Albumin 2.0 L Urine Protein Trace H Urine Blood Small H Urine Bilirubin 1+ H Ur Leukocyte Esterase Large H Urine WBC 86 H Urine Bacteria Many H Urine Mucus Few H 07/12/24 07/13/24 07/13/24 11:30 04:10 04:21 RBC 2.69 L Hgb 9.3 L D Hct 29.6 L MCV 109.8 H D Plt Count 136 L Lymphocytes # (Manual) 0.30 L Macrocytosis Marked A PT INR ABG pH 7.26 L ABG pCO2 52 H ABG pO2 321 H ABG Total CO2 25 H ABG O2 Saturation 100.0 H Hemoglobin 12.1 L Potassium Chloride Plasma Lactic Acid Julio 2.1 H* Calcium Magnesium Total Protein Albumin Urine Protein Urine Blood Urine Bilirubin Ur Leukocyte Esterase Urine WBC Urine Bacteria Urine Mucus 07/13/24 04:21 RBC Hgb Hct MCV Plt Count Lymphocytes # (Manual) Macrocytosis PT 14.6 H INR 1.4 H ABG pH ABG pCO2 ABG pO2 ABG Total CO2 ABG O2 Saturation Hemoglobin Potassium Chloride Plasma Lactic Acid Julio Calcium Magnesium Total Protein Albumin Urine Protein Urine Blood Urine Bilirubin Ur Leukocyte Esterase Urine WBC Urine Bacteria Urine Mucus - Diagnostic Findings Chest x-ray: image reviewed CT scan - chest: image reviewed Assessment and Plan Assessment: Massive pulmonary embolism with questionable right-sided heart strain and hemodynamic compromise; Chest CT angio showing new bilateral acute pulmonary emboli with large right-sided thrombus present, extending into the right upper and middle segmental and subsegmental branches. RV/LV ratio estimated 1.45. Patient is on multiple vasopressors. Severe hypotension and shock, patient was found profoundly hypotensive and unresponsive in the patient was intubated for airway protection. Patient did receive appropriate 2.5 L fluid bolus status post intubation. Also, started on multiple high-dose vasopressors. Acute hypoxemic respiratory failure, secondary to above, he was intubated by the ER provider in the ED. postintubation chest x-ray shows endotracheal tube approximately 5 cm above the jsaon, could to be advanced 1 to 2 cm. Multifocal infiltrates, concerning for pneumonia, Chest CTA showing bilateral small pleural effusions right greater than left. Bilateral groundglass opacities and consolidations more prominent on the right with right-sided volume loss, possible right-sided atelectasis. Also, groundglass opacities seen within the dependent portion of the left upper lobe. Suspect UTI/sepsis, history of frequent UTIs and MDROs History of severe peripheral arterial disease and prior left AKA History of DVT, chronically anticoagulated on Eliquis History of hyperlipidemia History of hypertension History of hypothyroidism Chronic ongoing tobacco dependence Chronic obstructive pulmonary disease History of alcohol abuse Plan: Patient's medications, labs, imaging were reviewed Patient will remain intubated to mechanical ventilator. Increased rate to 24, and may drop FiO2 to 50% Consult cardiovascular service on-call for possible EKOS or suction thrombectomy In the meantime, start high intensity heparin protocol. Monitor for bleeding, patient has developed a right-sided hematoma from previous arterial puncture in the ED Patient will need central line IV access, continue high-dose vasopressors in the form of Continue norepinephrine and vasopressin Will cover the patient on Zosyn Obtain pancultures GI prophylaxis: Protonix Patient's condition is currently critical, and his overall prognosis is guarded. I did discuss patient's status with his , she would like the patient remain a full code at this time. She would like to speak to her children. Patient will be moved to the intensive care unit once bed available. I have personally seen and examined the patient, performed the documentation and the assessment and plan as written. Number of minutes spent on the visit:20 Time with Patient: Greater than 30
[2024-07-13] MEDS: ETOMIDATE 2 MG/ML 10 ML VIAL IVP STA (06:42)
[2024-07-13] MEDS ORDERED: PANTOPRAZOLE 40 MG TABLET PO SCH (07:30)
[2024-07-13] MEDS: CHLORHEXIDINE GLUCONATE 15 ML CUP MUCOUS MEM SCH (08:02)
[2024-07-13] MEDS: lisinopriL 20 MG TAB PO SCH (08:03)
[2024-07-13] MEDS: METOPROLOL SUCCINATE (ER) 100 MG TAB.ER.24H PO SCH (08:03)
[2024-07-13] MEDS: tiZANidine 4 MG TAB PO SCH (08:04)
[2024-07-13] MEDS: LEVOTHYROXINE 75 MCG TAB PO SCH (08:04)
[2024-07-13] MEDS: PIPERACILLIN-TAZOBACTAM 3.375 GM in SODIUM CHLORIDE 0.9% 100 ML IVPB SCH (08:50)
[2024-07-13] MEDS: PANTOPRAZOLE 40 MG/10 ML VIAL IVP SCH (08:55)
--- NOTE | 2024-07-13 09:12 | P.CRDCN ---
History of Present Illness Consult date: 07/13/24 Reason for Consult (text): Pulmonary embolism History of present illness: Patient is a 68-year-old male who presented to the emergency room with shortness of breath. Patient has a known history of lower extremity DVT and was undergoing workup for pulmonary embolism. Patient was taking his evening pills, and became extremely short of breath. Nursing staff states he may have aspirated. He was subsequently intubated and went into cardiogenic shock. DIAGNOSTICS: Telemetry shows sinus rhythm with PACs Echocardiogram reveals right heart strain CTA of the chest shows bilateral acute pulmonary emboli with a large right sided thrombus CT scan of the brain shows moderate age-related cerebral atrophy and chronic small vessel disease Lab data: WBC 12.4, hemoglobin 13.3, hematocrit 42.7, sodium 141, potassium 3.0, BUN 12, creatinine 0.84, magnesium 1.5, troponin 0.01, 0.04 REVIEW OF SYSTEMS: Patient is sedated on ventilator PHYSICAL EXAMINATION: This is a 68-year-old male in no apparent distress at the time of my examination. HEENT: Head is atraumatic, normocephalic. Pupils are equal, round. Sclerae anicteric. Conjunctivae are clear. There is no jugular venous distention. No carotid bruit is heard. CHEST EXAMINATION: Lungs are coarse to auscultation. No chest wall tenderness is noted on palpation or with deep breathing. HEART EXAMINATION: Irregular rate and rhythm. S1, S2 heard. No murmurs, gallops or rub. ABDOMEN: Soft, nontender. Bowel sounds are heard. No organomegaly noted. EXTREMITIES: Doppler signals on right lower extremity. Left AKA. Hematoma noted in right groin NEUROLOGIC EXAMINATION: Patient is sedated on ventilator FINAL ASSESSMENT AND PLAN: Bilateral pulmonary emboli, with cor pulmonale Elevated troponins, in the setting of PE with right heart strain Hypokalemia and hypomagnesia Hypotension and cardiogenic shock Acute hypoxic respiratory failure Hypertension History of PAD History of DVT Current smoker History of EtOH abuse PLAN: Continue supportive treatment for cardiogenic shock Electrolyte replacement per protocol Vascular surgery on-call for aspiration thrombectomy Hematoma secondary to attempted central line placement; avoid EKOS with TPA Further recommendations to be based upon clinical course I am dictating on behalf of Dr Andrew Hilton's history/physical and assessment/plan. Past Medical History Past Medical History: COPD, Deep Vein Thrombosis (DVT), GERD/Reflux, Hyperlipidemia, Hypertension, Renal Disease, Thyroid Disorder Additional Past Medical History / Comment(s): RIGHT HIP DYSPLASIA, ANEMIA, CHRONIC INFECTION AND ELEVATED INFLAMMATORY MARKERS, DVT, decreased kidney function History of Any Multi-Drug Resistant Organisms: ESBL, MRSA Date of last positivie culture/infection: 02/25/24 - ESBL; UNKNOWN DATE - MRSA MDRO Source:: URINE; RIGHT HIP Past Surgical History: Hernia Repair, Joint Replacement, Orthopedic Surgery, Tonsillectomy Additional Past Surgical History / Comment(s): RT HIP REPLACED MULTIPLE TIMES SINCE THE AGE OF 13-ARTIFICAL HIP HAS SINCE BEEN REMOVED DUE TO ONGOING INFECTION AND PT USES A WHEELCHAIR, LEFT KNEE POLYPS UNDER SKIN REMOVED, LEFT WRIST SURG CHILD Past Anesthesia/Blood Transfusion Reactions: Postoperative Nausea & Vomiting (PONV) Additional Past Anesthesia/Blood Transfusion Reaction / Comment(s): no blood tx reaction Past Psychological History: Anxiety Smoking Status: Current every day smoker Past Alcohol Use History: Daily Past Drug Use History: None Reported, Marijuana - Past Family History Father Family Medical History: Cancer Additional Family Medical History / Comment(s): COLO-RECTAL Medications and Allergies Home Medications Medication Instructions Recorded Confirmed Type tiZANidine HCL [Zanaflex] 4 mg PO DAILY 12/24/18 07/12/24 History Apixaban [Eliquis] 5 mg PO BID 10/22/22 07/12/24 History icosapent ethyL [Icosapent Ethyl] 2 gm PO BID 10/22/22 07/12/24 History Metoprolol Succinate (ER) [Toprol 100 mg PO DAILY 06/10/23 07/12/24 History XL] Omeprazole 20 mg PO DAILY 06/10/23 07/12/24 History ALPRAZolam [Xanax] 1 mg PO TID PRN 07/12/24 07/12/24 History Levothyroxine Sodium [Synthroid] 75 mcg PO DAILY 07/12/24 07/12/24 History Nystatin 100,000Unit/gm Cream 1 applic TOPICAL QID 07/12/24 07/12/24 History [Mycostatin Cream] lisinopriL [Zestril] 40 mg PO DAILY 07/12/24 07/12/24 History traZODone HCL [Desyrel] 100 mg PO HS PRN 07/12/24 07/12/24 History Allergies Allergy/AdvReac Type Severity Reaction Status Date / Time codeine Allergy Itching Verified 06/26/23 10:59 onion Allergy Nausea & Verified 06/26/23 10:59 Vomiting & Diarrhea Quinolones Allergy Unknown Verified 06/26/23 10:59 simvastatin [From Zocor] Allergy Unknown Verified 06/26/23 10:59 Physical Exam Vitals: Vital Signs Temp Pulse Resp BP Pulse Ox FiO2 07/13/24 08:46 100.6 F H 106 H 24 98/51 100 07/13/24 08:30 100.6 F H 102 H 24 95/59 100 07/13/24 08:11 50 07/13/24 08:08 50 07/13/24 08:00 100.4 F H 97 24 102/79 98 07/13/24 07:52 100.2 F H 106 H 24 108/77 99 07/13/24 07:00 100.2 F H 101 H 24 104/76 99 07/13/24 05:44 100 20 82/53 36 L 07/13/24 05:24 99.0 F 112 H 16 86/41 91 L 07/13/24 04:26 50 07/13/24 04:19 106 H 20 91/62 07/13/24 04:10 102 H 20 95/70 07/13/24 04:06 115 H 105/78 07/13/24 04:04 109 H 85/63 07/13/24 03:59 100 07/13/24 03:56 100 78/63 07/13/24 03:53 112 H 66/48 99 07/13/24 03:48 110 H 69/40 07/13/24 03:45 82/35 07/13/24 01:40 99.8 F H 110 H 20 82/63 92 L 07/13/24 00:24 98.8 F 112 H 22 106/68 94 L 07/12/24 21:22 100.9 F H 121 H 22 97/62 92 L 07/12/24 20:59 98.4 F 116 H 24 119/47 93 L 07/12/24 18:54 112 H 20 98/68 93 L 07/12/24 18:05 105 H 20 85/65 94 L 07/12/24 16:44 98.5 F 105 H 20 96/67 96 07/12/24 14:38 102 H 20 109/89 95 07/12/24 12:40 105 H 18 100/85 96 07/12/24 11:01 72 20 94/77 98 07/12/24 10:45 99.0 F 71 20 82/67 99 Intake and Output 07/12/24 07/13/24 07/13/24 22:59 06:59 14:59 Intake Total 22.971 233.706 Output Total 150 Balance 22.971 83.706 Intake: Intake, IV Titration 22.971 233.706 Amount Norepinephrine 4 mg In 20.294 233.706 Sodium Chloride 0.9% 250 ml @ 0.03 MCG/KG/MIN 7. 772 mls/hr IV .Q24H [facility] Rx#:[id number] Vasopressin 20 unit In 2.677 Sodium Chloride 0.9% 50 ml @ 0.03 UNITS/MIN 4.59 mls/hr IV .Q11H7M [facility] Rx# :[id number] Output: Urine 150 Uretheral (Mosqueda) 150 Other: Voiding Method Diaper Weight 68 kg Results 07/13/24 05:20 07/12/24 11:30 Cardiac Enzymes 07/12/24 07/12/24 07/13/24 Range/Units 11:30 11:30 04:21 AST 30 (17-59) U/L Troponin I <0.012 0.040 H* (0.000-0.034) ng/mL Coagulation 07/12/24 07/13/24 Range/Units 11:30 04:21 PT 12.1 14.6 H (10.0-12.5) sec APTT 26.0 26.5 (22.0-30.0) sec CBC 07/12/24 07/13/24 07/13/24 Range/Units 11:30 04:21 05:20 WBC 8.4 7.5 12.4 H (3.8-10.6) k/uL RBC 4.21 L 2.69 L 3.91 L (4.30-5.90) m/uL Hgb 14.6 9.3 L D 13.3 D (13.0-17.5) gm/dL Hct 43.8 29.6 L 42.7 (39.0-53.0) % Plt Count 166 136 L 206 (150-450) k/uL Comprehensive Metabolic Panel 07/12/24 Range/Units 11:30 Sodium 141 (137-145) mmol/L Potassium 3.0 L (3.5-5.1) mmol/L Chloride 111 H (98-107) mmol/L Carbon Dioxide 24 (22-30) mmol/L BUN 12 (9-20) mg/dL Creatinine 0.84 (0.66-1.25) mg/dL Glucose 83 (74-99) mg/dL Calcium 7.6 L (8.4-10.2) mg/dL AST 30 (17-59) U/L ALT 15 (4-49) U/L Alkaline Phosphatase 118 (38-126) U/L Total Protein 4.7 L (6.3-8.2) g/dL Albumin 2.0 L (3.5-5.0) g/dL Current Medications Generic Name Dose Route Start Last Admin Trade Name Freq PRN Reason Stop Dose Admin Acetaminophen 650 mg 07/12/24 13:25 Acetaminophen Tab 325 Mg Tab PO Q6HR PRN Mild Pain or Fever > 100.5 Alprazolam 1 mg 07/12/24 16:13 07/12/24 16:41 Alprazolam 1 Mg Tab PO 1 mg TID PRN Administration Anxiety Chlorhexidine Gluconate 15 ml 07/13/24 09:00 07/13/24 08:02 Chlorhexidine Gluconate 15 Ml Cup MUCOUS MEM Not Given BID [facility] Heparin Sodium (Porcine) 0 unit 07/13/24 05:32 Heparin Sodium 1,000 Un/Ml (10ml Vl) IV PER PROTOCOL PRN Low PTT Protocol Sodium Chloride 1,000 mls @ 75 mls/hr 07/12/24 13:30 07/13/24 06:03 Saline 0.9% IV 75 mls/hr .[id number] [facility] Administration Vasopressin 20 unit/ Sodium 51 mls @ 4.59 mls/hr 07/13/24 04:00 07/13/24 05:00 Chloride IV 0.04 units/min .Q11H7M [facility] 6.12 mls/hr Titration Protocol 0.03 UNITS/MIN Norepinephrine Bitartrate 4 mg 254 mls @ 7.772 mls/hr 07/13/24 04:15 07/13/24 07:30 / Sodium Chloride IV 0.35 mcg/kg/min .Q24H [facility] 90.678 mls/hr Administration Protocol 0.03 MCG/KG/MIN Propofol 1,000 mg/ IV Solution 100 mls @ 6.12 mls/hr 07/13/24 05:30 07/13/24 05:00 IV 15 mcg/kg/min .[id number] [facility] 6.12 mls/hr Administration Protocol 15 MCG/KG/MIN Heparin Sodium/Sodium Chloride 250 mls @ 12.24 mls/hr 07/13/24 05:45 07/13/24 05:52 25,000 unit/ Sodium Chloride IV 18 units/kg/hr .[id number] [facility] 12.24 mls/hr Administration Protocol 18 UNITS/KG/HR Piperacillin Sod/Tazobactam 100 mls @ 25 mls/hr 07/13/24 08:00 07/13/24 08:50 Sod 3.375 gm/ Sodium Chloride IVPB 25 mls/hr Q8HR [facility] Administration Protocol Levothyroxine Sodium 75 mcg 07/13/24 06:30 07/13/24 08:04 Levothyroxine 75 Mcg Tab PO Not Given DAILY@0630 [facility] Lisinopril 40 mg 07/13/24 09:00 07/13/24 08:03 Lisinopril 20 Mg Tab PO Not Given DAILY [facility] Magnesium Oxide 400 mg 07/12/24 13:45 07/13/24 08:03 Magnesium Oxide 400 Mg Tab PO Not Given DAILY [facility] Metoprolol Succinate 100 mg 07/13/24 09:00 07/13/24 08:03 Metoprolol Succinate (Er) 100 Mg Tab.Er.24h PO Not Given DAILY [facility] Naloxone HCl 0.2 mg 07/12/24 13:25 Naloxone 0.4 Mg/Ml 1 Ml Vial IV Q2M PRN Opioid Reversal Non-Formulary Medication 2 gm 07/12/24 21:00 07/13/24 08:03 Icosapent Ethyl [Icosapent Ethyl] PO Not Given BID [facility] Pantoprazole Sodium 40 mg 07/13/24 09:00 07/13/24 08:55 Pantoprazole 40 Mg/10 Ml Vial IVP 40 mg DAILY [facility] Administration Potassium Chloride 20 meq 07/12/24 13:45 07/13/24 08:04 Potassium Chloride Er 20 Meq Tab.Er PO Not Given BID [facility] Tizanidine HCl 4 mg 07/13/24 09:00 07/13/24 08:04 Tizanidine 4 Mg Tab PO Not Given DAILY [facility] Trazodone HCl 100 mg 07/12/24 16:13 Trazodone Hcl 100 Mg Tab PO HS PRN Insomnia Intake and Output 07/12/24 07/13/24 07/13/24 22:59 06:59 14:59 Intake Total 22.971 233.706 Output Total 150 Balance 22.971 83.706 Intake: Intake, IV Titration 22.971 233.706 Amount Norepinephrine 4 mg In 20.294 233.706 Sodium Chloride 0.9% 250 ml @ 0.03 MCG/KG/MIN 7. 772 mls/hr IV .Q24H [facility] Rx#:[id number] Vasopressin 20 unit In 2.677 Sodium Chloride 0.9% 50 ml @ 0.03 UNITS/MIN 4.59 mls/hr IV .Q11H7M [facility] Rx# :[id number] Output: Urine 150 Uretheral (Mosqueda) 150 Other: Voiding Method Diaper Weight 68 kg 07/13/24 05:20 07/12/24 11:30
[2024-07-13] MEDS: ACETAMINOPHEN IV (For NPO) 1,000 MG in EMPTY BAG 1 BAG IVPB STA (09:36)
[2024-07-13 10:17] LABS: Chloride 104 mmol/L (98-107); Sodium 129 mmol/L (137-145)
--- NOTE | 2024-07-13 10:26 | P.GSCN ---
History of Present Illness Consult date: 07/13/24 Reason for Consult: Pulmonary embolism, thrombectomy Requesting physician: Andrew Hilton History of present illness: This is a 68-year-old male being seen in the emergency department waiting a bed for the ICU. Patient is currently sedated and intubated. HPI obtained from chart, nursing and . Apparently patient presented to the hospital yesterday with complaints of weakness and concerns for slurred speech, possible stroke. 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 Mosqueda in June 2023 and he has been currently on anticoagulation Eliquis 5 mg twice daily and to her knowledge taking it as prescribed. Patient also has a past medical history including COPD, current daily smoker, daily alcohol use, GERD, hyperlipidemia, hypertension, chronic renal disease, thyroid disorder and history of right hip dysplasia with multiple hip replacement. Patient is nonambulatory and can bear no weight on the right side. While patient was in the emergency department apparently he was found in respiratory distress and was intubated to protect his airway. ER physician attempted a a line in the right femoral artery, which has since been removed. Patient has hematoma at that site. He had a CTA of the chest which shows bilateral pulmonary embolism with large right sided thrombus. Vascular surgery was consulted for possible thrombectomy. Patient also has elevated troponin x 1, he was started on a heparin drip. Echocardiogram is ordered but currently pending. WBC 12.4 hemoglobin 13.3 platelet count 206,000 INR 1.4 troponin 0.040 no CMP today Review of Systems ROS unobtainable: due to endotracheal tube Past Medical History Past Medical History: COPD, Deep Vein Thrombosis (DVT), GERD/Reflux, Hyperlipidemia, Hypertension, Renal Disease, Thyroid Disorder Additional Past Medical History / Comment(s): RIGHT HIP DYSPLASIA, ANEMIA, CHRONIC INFECTION AND ELEVATED INFLAMMATORY MARKERS, DVT, decreased kidney function History of Any Multi-Drug Resistant Organisms: ESBL, MRSA Year Discovered:: 02/25/24 - ESBL; UNKNOWN DATE - MRSA MDRO Source:: URINE; RIGHT HIP Past Surgical History: Hernia Repair, Joint Replacement, Orthopedic Surgery, Tonsillectomy Additional Past Surgical History / Comment(s): RT HIP REPLACED MULTIPLE TIMES SINCE THE AGE OF 13-ARTIFICAL HIP HAS SINCE BEEN REMOVED DUE TO ONGOING INFECTION AND PT USES A WHEELCHAIR, LEFT KNEE POLYPS UNDER SKIN REMOVED, LEFT WRIST SURG CHILD Past Anesthesia/Blood Transfusion Reactions: Postoperative Nausea & Vomiting (PONV) Additional Past Anesthesia/Blood Transfusion Reaction / Comm: no blood tx reaction Past Psychological History: Anxiety Smoking Status: Current every day smoker Past Alcohol Use History: Daily Past Drug Use History: None Reported, Marijuana - Past Family History Father Family Medical History: Cancer Additional Family Medical History / Comment(s): COLO-RECTAL Medications and Allergies Home Medications Medication Instructions Recorded Confirmed Type tiZANidine HCL [Zanaflex] 4 mg PO DAILY 12/24/18 07/12/24 History Apixaban [Eliquis] 5 mg PO BID 10/22/22 07/12/24 History icosapent ethyL [Icosapent Ethyl] 2 gm PO BID 10/22/22 07/12/24 History Metoprolol Succinate (ER) [Toprol 100 mg PO DAILY 06/10/23 07/12/24 History XL] Omeprazole 20 mg PO DAILY 06/10/23 07/12/24 History ALPRAZolam [Xanax] 1 mg PO TID PRN 07/12/24 07/12/24 History Levothyroxine Sodium [Synthroid] 75 mcg PO DAILY 07/12/24 07/12/24 History Nystatin 100,000Unit/gm Cream 1 applic TOPICAL QID 07/12/24 07/12/24 History [Mycostatin Cream] lisinopriL [Zestril] 40 mg PO DAILY 07/12/24 07/12/24 History traZODone HCL [Desyrel] 100 mg PO HS PRN 07/12/24 07/12/24 History Allergies Allergy/AdvReac Type Severity Reaction Status Date / Time codeine Allergy Itching Verified 06/26/23 10:59 onion Allergy Nausea & Verified 06/26/23 10:59 Vomiting & Diarrhea Quinolones Allergy Unknown Verified 06/26/23 10:59 simvastatin [From Zocor] Allergy Unknown Verified 06/26/23 10:59 Surgical - Exam Vital Signs Temp Pulse Resp BP Pulse Ox 99.0 F 71 20 82/67 99 07/12/24 10:45 07/12/24 10:45 07/12/24 10:45 07/12/24 10:45 07/12/24 10:45 General appearance: The patient is sedated on mechanical ventilation. HET: Head is normocephalic and atraumatic. Neck: Supple. Heart: Irregular. Lungs: Equal expansion. Abdomen: Soft, nondistended. Extremities: Right groin with ecchymosis, soft. pressure dressing in place. Audible PT and DP Doppler signal. Toes are dusky. Left AKA well-healed. Neurological: Sedated. Results - Labs 07/13/24 05:20 07/13/24 09:18 Abnormal Lab Results - Last 24 Hours (Table) 07/12/24 07/12/24 07/12/24 Range/Units 11:30 11:30 11:30 WBC (3.8-10.6) k/uL RBC 4.21 L (4.30-5.90) m/uL Hgb (13.0-17.5) gm/dL Hct (39.0-53.0) % MCV 103.9 H (80.0-100.0) fL Plt Count (150-450) k/uL Neutrophils # (1.3-7.7) k/uL Lymphocytes # (Manual) (1.0-4.8) k/uL Macrocytosis PT (10.0-12.5) sec INR (<1.2) ABG pH (7.35-7.45) ABG pCO2 (35-45) mmHg ABG pO2 (83-108) mmHg ABG Total CO2 (19-24) mmol/L ABG O2 Saturation (94-97) % Hemoglobin (13.0-17.5) gm/dL Potassium 3.0 L (3.5-5.1) mmol/L Chloride 111 H (98-107) mmol/L Plasma Lactic Acid Julio (0.7-2.0) mmol/L Calcium 7.6 L (8.4-10.2) mg/dL Magnesium 1.5 L (1.6-2.3) mg/dL Troponin I (0.000-0.034) ng/mL Total Protein 4.7 L (6.3-8.2) g/dL Albumin 2.0 L (3.5-5.0) g/dL Urine Protein Trace H (Negative) Urine Blood Small H (Negative) Urine Bilirubin 1+ H (Negative) Ur Leukocyte Esterase Large H (Negative) Urine WBC 86 H (0-5) /hpf Urine Bacteria Many H (None) /hpf Urine Mucus Few H (None) /hpf 07/12/24 07/13/24 07/13/24 Range/Units 11:30 04:10 04:21 WBC (3.8-10.6) k/uL RBC 2.69 L (4.30-5.90) m/uL Hgb 9.3 L D (13.0-17.5) gm/dL Hct 29.6 L (39.0-53.0) % MCV 109.8 H D (80.0-100.0) fL Plt Count 136 L (150-450) k/uL Neutrophils # (1.3-7.7) k/uL Lymphocytes # (Manual) 0.30 L (1.0-4.8) k/uL Macrocytosis Marked A PT (10.0-12.5) sec INR (<1.2) ABG pH 7.26 L (7.35-7.45) ABG pCO2 52 H (35-45) mmHg ABG pO2 321 H (83-108) mmHg ABG Total CO2 25 H (19-24) mmol/L ABG O2 Saturation 100.0 H (94-97) % Hemoglobin 12.1 L (13.0-17.5) gm/dL Potassium (3.5-5.1) mmol/L Chloride (98-107) mmol/L Plasma Lactic Acid Julio 2.1 H* (0.7-2.0) mmol/L Calcium (8.4-10.2) mg/dL Magnesium (1.6-2.3) mg/dL Troponin I (0.000-0.034) ng/mL Total Protein (6.3-8.2) g/dL Albumin (3.5-5.0) g/dL Urine Protein (Negative) Urine Blood (Negative) Urine Bilirubin (Negative) Ur Leukocyte Esterase (Negative) Urine WBC (0-5) /hpf Urine Bacteria (None) /hpf Urine Mucus (None) /hpf 07/13/24 07/13/24 07/13/24 Range/Units 04:21 04:21 05:20 WBC 12.4 H (3.8-10.6) k/uL RBC 3.91 L (4.30-5.90) m/uL Hgb (13.0-17.5) gm/dL Hct (39.0-53.0) % MCV 109.3 H (80.0-100.0) fL Plt Count (150-450) k/uL Neutrophils # 10.4 H (1.3-7.7) k/uL Lymphocytes # (Manual) (1.0-4.8) k/uL Macrocytosis Marked A PT 14.6 H (10.0-12.5) sec INR 1.4 H (<1.2) ABG pH (7.35-7.45) ABG pCO2 (35-45) mmHg ABG pO2 (83-108) mmHg ABG Total CO2 (19-24) mmol/L ABG O2 Saturation (94-97) % Hemoglobin (13.0-17.5) gm/dL Potassium (3.5-5.1) mmol/L Chloride (98-107) mmol/L Plasma Lactic Acid Julio (0.7-2.0) mmol/L Calcium (8.4-10.2) mg/dL Magnesium (1.6-2.3) mg/dL Troponin I 0.040 H* (0.000-0.034) ng/mL Total Protein (6.3-8.2) g/dL Albumin (3.5-5.0) g/dL Urine Protein (Negative) Urine Blood (Negative) Urine Bilirubin (Negative) Ur Leukocyte Esterase (Negative) Urine WBC (0-5) /hpf Urine Bacteria (None) /hpf Urine Mucus (None) /hpf Diabetes panel 07/12/24 Range/Units 11:30 Sodium 141 (137-145) mmol/L Potassium 3.0 L (3.5-5.1) mmol/L Chloride 111 H (98-107) mmol/L Carbon Dioxide 24 (22-30) mmol/L BUN 12 (9-20) mg/dL Creatinine 0.84 (0.66-1.25) mg/dL Glucose 83 (74-99) mg/dL Calcium 7.6 L (8.4-10.2) mg/dL AST 30 (17-59) U/L ALT 15 (4-49) U/L Alkaline Phosphatase 118 (38-126) U/L Total Protein 4.7 L (6.3-8.2) g/dL Albumin 2.0 L (3.5-5.0) g/dL Calcium panel 07/12/24 Range/Units 11:30 Calcium 7.6 L (8.4-10.2) mg/dL Albumin 2.0 L (3.5-5.0) g/dL Pituitary panel 07/12/24 Range/Units 11:30 Sodium 141 (137-145) mmol/L Potassium 3.0 L (3.5-5.1) mmol/L Chloride 111 H (98-107) mmol/L Carbon Dioxide 24 (22-30) mmol/L BUN 12 (9-20) mg/dL Creatinine 0.84 (0.66-1.25) mg/dL Glucose 83 (74-99) mg/dL Calcium 7.6 L (8.4-10.2) mg/dL Adrenal panel 07/12/24 Range/Units 11:30 Sodium 141 (137-145) mmol/L Potassium 3.0 L (3.5-5.1) mmol/L Chloride 111 H (98-107) mmol/L Carbon Dioxide 24 (22-30) mmol/L BUN 12 (9-20) mg/dL Creatinine 0.84 (0.66-1.25) mg/dL Glucose 83 (74-99) mg/dL Calcium 7.6 L (8.4-10.2) mg/dL Total Bilirubin 1.0 (0.2-1.3) mg/dL AST 30 (17-59) U/L ALT 15 (4-49) U/L Alkaline Phosphatase 118 (38-126) U/L Total Protein 4.7 L (6.3-8.2) g/dL Albumin 2.0 L (3.5-5.0) g/dL - Imaging Comments: Chest CTA reports new bilateral acute pulmonary emboli with large right sided thrombus present. Cannot exclude RV strain on CT. Small to tiny right great or than left pleural effusion. Bilateral groundglass opacities and consolidations or prominent on the right with right sided volume loss favoring significant right-sided atelectasis. Brain CT reports no acute intracranial hemorrhage or midline shift there is moderate diffuse age-related cerebral atrophy and chronic small vessel ischemic change redemonstrated. No significant change from prior. Assessment and Plan Assessment: 1. Bilateral pulmonary embolism with large right thrombus 2. Right groin hematoma status post A-line 3. Severe hypotension and shock and found unresponsive 4. Acute hypoxic respiratory failure secondary to above 5. History of left lower extremity peripheral arterial disease status post [id number] amputation 6. History of right lower extremity DVT on Eliquis 7. History of COPD 8. Chronic ongoing tobacco dependence 9. History of alcohol abuse Plan: 1. Await echocardiogram result. Echocardiogram with findings of right heart strain. 2. Continue IV heparin drip 3. Consult to hematology for failed outpatient anticoagulation 4. Continue with recommendations from admissions evaluator 5. Plan for pulmonary thrombectomy with [facility] today. 6. Family would like patient to be a DO NOT RESUSCITATE, discussed with them this will have to be after surgery which they are agreeable. Patient to be full code at this time. Thank you for this consultation, we will continue to follow. The impression and plan of care has been dictated as directed. I performed a history and examination of this patient, discussed the same with the dictator. I agree with the dictator's note ,documented as a scribe. Any additional findings or plans will be noted.
[2024-07-13 11:08] LABS: Potassium 4.3 mmol/L (3.5-5.1)
[2024-07-13 11:09] LABS: African American GFR (CKD) >90 (>60 ml/min/1.73 sqM); Anion Gap 13 mmol/L; Non-African American GFR(CKD) >90 (>60 ml/min/1.73 sqM)
--- NOTE | 2024-07-13 11:09 | CA ---
Transthoracic Echo Report Name: Demetrius Hudson Age: 68 Gender: M : 1955 Exam Date: 07/13/2024 08:27 Exam Location: [facility] Ht (in): 71 Wt (lb): 148 Ordering Physician: Deepak Bradford Attending/Referring Phys: Finishing Inspector Brenda Nielson RDCS Procedure CPT: Indications: PE evaluate RV strain Cardiac Hx: PE Technical Quality: Fair Contrast 1: Total Dose (mL): Contrast 2: Total Dose (mL): MEASUREMENTS (Male / Female) Normal Values 2D ECHO LV Diastolic Diameter PLAX 3.8 cm 4.2 - 5.9 / 3.9 - 5.3 cm LV Systolic Diameter PLAX 2.5 cm IVS Diastolic Thickness 0.9 cm 0.6 - 1.0 / 0.6 - 0.9 cm LVPW Diastolic Thickness 1.0 cm 0.6 - 1.0 / 0.6 - 0.9 cm LV Relative Wall Thickness 0.5 RV Internal Dim ED PLAX 5.3 cm LA Systolic Diameter LX 4.1 cm 3.0 - 4.0 / 2.7 - 3.8 cm LV Diastolic Volume MOD 4C 48.8 cm??? LV Systolic Volume MOD 4C 35.2 cm??? LV Ejection Fraction MOD 4C 27.8 % LV Cardiac Index MOD 4C 549.8 cm???/min???m??? LV Diastolic Length 4C 5.9 cm LV Systolic Length 4C 5.9 cm M-MODE Aortic Root Diameter MM 3.9 cm LA Systolic Diameter MM 3.0 cm LA Ao Ratio MM 0.8 AV Cusp Separation MM 1.8 cm FINDINGS Left Ventricle Left ventricular ejection fraction is estimated at 40-45 %. Left ventricular cavity size normal. Left ventricular wall thickness normal. No obvious regional wall motion abnormalities. Mildly reduced global left ventricular systolic function. Right Ventricle Severe right ventricular dilatation. Severely reduced right ventricular global systolic function. Unable to estimate the right ventricular systolic pressure. Right Atrium Mild right atrial dilatation. Left Atrium Mild left atrial dilatation. Mitral Valve Structurally normal mitral valve. Trace mitral regurgitation. No mitral stenosis. Aortic Valve Trileaflet aortic valve. Trace aortic regurgitation. No aortic stenosis. Tricuspid Valve Structurally normal tricuspid valve. Trace tricuspid regurgitation. No tricuspid stenosis. Pulmonic Valve Pulmonic valve not well visualized. Trace pulmonic regurgitation. No pulmonic stenosis. Pericardium No pericardial or pleural effusion. Aorta Aorta at the level of the sinuses of valsalva (root) normal, 3.9cm CONCLUSIONS LV size is at upper limits of normal with mild global decrease in contractility estimated ejection fraction of about 40-45%. Right ventricle is enlarged severely with strain and global decrease in contractility. RV pressures are not well quantified. Right ventricular strain is evident. Images are of suboptimal quality Previewed by: Dr. Danni Layne MD (Electronically Signed) Final Date: 13 July 2024 11:08
[2024-07-13 11:10] LABS: Blood Urea Nitrogen 13 mg/dL (9-20); Carbon Dioxide 12 mmol/L (22-30); Glucose 66 mg/dL (74-99)
[2024-07-13 11:11] LABS: ALT 18 U/L (4-49); Albumin 2.2 g/dL (3.5-5.0); Total Bilirubin 1.2 mg/dL (0.2-1.3); Total Protein 5.5 g/dL (6.3-8.2)
[2024-07-13 11:12] LABS: AST 55 U/L (17-59); Alkaline Phosphatase 87 U/L (38-126)
[2024-07-13 11:13] LABS: Calcium 6.2 mg/dL (8.4-10.2)
[2024-07-13 11:39] LABS: Glucose,Whole Blood 87 mg/dL (70-110)
[2024-07-13] MEDS: CALCIUM GLUCONATE IN NACL 1 GM in SALINE 1 100ML.BAG IVPB ONE (12:30)
[2024-07-13 15:31] LABS: Glucose,Whole Blood 74 mg/dL (70-110)
--- NOTE | 2024-07-13 16:47 | P.CONS ---
History of Present Illness - Reason for Consult Consult date: 07/13/24 PE on anticoagulation Requesting physician: Lucia Pham - Chief Complaint weakness, confusion - History of Present Illness Patient is a 68-year-old male with multiple comorbidities. Patient presented to the emergency room with progressing weakness and confusion over the last couple days. Upon admit CT brain without contrast showed no acute bleed or mass effect. Marked generalized atrophy and moderate chronic ischemic white matter changes. 2 tiny remote lacunar infarcts in the right basal ganglia. Patient became hypotensive, hypoxic and unresponsive and was subsequently intubated. Repeat chest x-ray showing right basilar effusion and new consolidative changes seen within the right lung. Patient has been started on IV antibiotics. CTA chest was then obtained revealing new bilateral acute pulmonary emboli with large right sided thrombus present. Cannot exclude RV strain. Small to tiny right greater than left pleural effusions. Bilateral groundglass opacities and consolidation more prominent on the right with right-sided volume loss. Heparin drip started. Patient anticoagulated with Eliquis 5 mg twice daily for history of a left lower extremity DVT. states patient does his own pills at home so is unsure how many doses he missed, but suspects at least 2 to 3 doses were missed prior to admission. Eliquis was restarted last night and received 1 dose. Per patient is normally compliant with all of his medications. Denies complaints of CP and SOB Counts stable, WBC 12.4, hemoglobin 13.3, platelets 26,000. Tmax 100.9. UA suspicious for UTI. Urine culture, blood culture and sputum culture pending. Echocardiogram pending. Vascular surgery and cardiology following. Review of Systems 10 point ROS is negative except as stated in the HPI Past Medical History Past Medical History: COPD, Deep Vein Thrombosis (DVT), GERD/Reflux, Hyperlipidemia, Hypertension, Renal Disease, Thyroid Disorder Additional Past Medical History / Comment(s): RIGHT HIP DYSPLASIA, ANEMIA, CHRONIC INFECTION AND ELEVATED INFLAMMATORY MARKERS, DVT, decreased kidney function History of Any Multi-Drug Resistant Organisms: ESBL, MRSA Year Discovered:: 02/25/24 - ESBL; UNKNOWN DATE - MRSA MDRO Source:: URINE; RIGHT HIP Past Surgical History: Hernia Repair, Joint Replacement, Orthopedic Surgery, Tonsillectomy Additional Past Surgical History / Comment(s): RT HIP REPLACED MULTIPLE TIMES SINCE THE AGE OF 13-ARTIFICAL HIP HAS SINCE BEEN REMOVED DUE TO ONGOING INFECTION AND PT USES A WHEELCHAIR, LEFT KNEE POLYPS UNDER SKIN REMOVED, LEFT WRIST SURG CHILD Past Anesthesia/Blood Transfusion Reactions: Postoperative Nausea & Vomiting (PONV) Additional Past Anesthesia/Blood Transfusion Reaction / Comm: no blood tx reaction Past Psychological History: Anxiety Smoking Status: Current every day smoker Past Alcohol Use History: Daily Past Drug Use History: None Reported, Marijuana - Past Family History Father Family Medical History: Cancer Additional Family Medical History / Comment(s): COLO-RECTAL Medications and Allergies Home Medications Medication Instructions Recorded Confirmed Type tiZANidine HCL [Zanaflex] 4 mg PO DAILY 12/24/18 07/12/24 History Apixaban [Eliquis] 5 mg PO BID 10/22/22 07/12/24 History icosapent ethyL [Icosapent Ethyl] 2 gm PO BID 10/22/22 07/12/24 History Metoprolol Succinate (ER) [Toprol 100 mg PO DAILY 06/10/23 07/12/24 History XL] Omeprazole 20 mg PO DAILY 06/10/23 07/12/24 History ALPRAZolam [Xanax] 1 mg PO TID PRN 07/12/24 07/12/24 History Levothyroxine Sodium [Synthroid] 75 mcg PO DAILY 07/12/24 07/12/24 History Nystatin 100,000Unit/gm Cream 1 applic TOPICAL QID 07/12/24 07/12/24 History [Mycostatin Cream] lisinopriL [Zestril] 40 mg PO DAILY 07/12/24 07/12/24 History traZODone HCL [Desyrel] 100 mg PO HS PRN 07/12/24 07/12/24 History Allergies Allergy/AdvReac Type Severity Reaction Status Date / Time codeine Allergy Itching Verified 06/26/23 10:59 onion Allergy Nausea & Verified 06/26/23 10:59 Vomiting & Diarrhea Quinolones Allergy Unknown Verified 06/26/23 10:59 simvastatin [From Zocor] Allergy Unknown Verified 06/26/23 10:59 Physical Exam Vitals: Vital Signs Temp Pulse Pulse Resp BP Pulse Ox FiO2 07/13/24 11:27 50 07/13/24 11:23 100.6 F H 107 H 24 105/75 100 07/13/24 11:05 98 24 111/78 100 07/13/24 10:57 108 H 24 113/76 100 07/13/24 10:45 100.8 F H 98 24 111/82 100 07/13/24 10:41 24 L 24 98/78 100 07/13/24 10:16 100.9 F H 101 H 24 91/62 100 07/13/24 10:10 100.9 F H 113 H 24 103/71 98 07/13/24 09:53 100.9 F H 112 H 24 102/50 100 07/13/24 09:33 100.9 F H 112 H 24 104/74 100 07/13/24 09:25 100.9 F H 106 H 24 102/74 100 07/13/24 09:13 103 H 24 95/55 100 07/13/24 09:03 100.9 F H 104 H 24 92/55 100 07/13/24 08:46 100.6 F H 106 H 24 98/51 100 07/13/24 08:30 100.6 F H 102 H 24 95/59 100 07/13/24 08:11 50 07/13/24 08:08 50 07/13/24 08:00 100.4 F H 97 98 24 102/79 98 07/13/24 07:52 100.2 F H 106 H 24 108/77 99 07/13/24 07:00 100.2 F H 101 H 24 104/76 99 07/13/24 05:44 100 20 82/53 36 L 07/13/24 05:24 99.0 F 112 H 16 86/41 91 L 07/13/24 04:26 50 07/13/24 04:19 106 H 20 91/62 07/13/24 04:10 102 H 20 95/70 07/13/24 04:06 115 H 105/78 07/13/24 04:04 109 H 85/63 07/13/24 03:59 100 07/13/24 03:56 100 78/63 07/13/24 03:53 112 H 66/48 99 07/13/24 03:48 110 H 69/40 07/13/24 03:45 82/35 07/13/24 01:40 99.8 F H 110 H 20 82/63 92 L 07/13/24 00:24 98.8 F 112 H 22 106/68 94 L 07/12/24 21:22 100.9 F H 121 H 22 97/62 92 L 07/12/24 20:59 98.4 F 116 H 24 119/47 93 L 07/12/24 18:54 112 H 20 98/68 93 L 07/12/24 18:05 105 H 20 85/65 94 L 07/12/24 16:44 98.5 F 105 H 20 96/67 96 07/12/24 14:38 102 H 20 109/89 95 07/12/24 12:40 105 H 18 100/85 96 Intake and Output 07/12/24 07/13/24 07/13/24 22:59 06:59 14:59 Intake Total 22.971 519.836 Output Total 150 Balance 22.971 369.836 Intake: Intake, IV Titration 22.971 519.836 Amount Norepinephrine 4 mg In 20.294 487.706 Sodium Chloride 0.9% 250 ml @ 0.03 MCG/KG/MIN 7. 772 mls/hr IV .Q24H CHRISTY Rx#:[id number] Vasopressin 20 unit In 2.677 32.13 Sodium Chloride 0.9% 50 ml @ 0.03 UNITS/MIN 4.59 mls/hr IV .Q11H7M CHRISTY Rx# :[id number] Output: Urine 150 Uretheral ([place]) 150 Other: Voiding Method Diaper Weight 68 kg - Constitutional General appearance: no acute distress - EENT Eyes: anicteric sclerae, EOMI ENT: hearing grossly normal - Respiratory ventilated breath sounds - Cardiovascular skin warm and dry - Integumentary Integumentary: no cyanotic, no jaundiced - Neurologic sedated - Musculoskeletal left BKA, no swelling noted of BLE Results CBC & Chem 7: 07/13/24 05:20 07/13/24 09:18 Labs: Abnormal Lab Results - Last 24 Hours (Table) 07/12/24 07/12/24 07/12/24 Range/Units 11:30 11:30 11:30 WBC (3.8-10.6) k/uL RBC 4.21 L (4.30-5.90) m/uL Hgb (13.0-17.5) gm/dL Hct (39.0-53.0) % MCV 103.9 H (80.0-100.0) fL Plt Count (150-450) k/uL Neutrophils # (1.3-7.7) k/uL Lymphocytes # (Manual) (1.0-4.8) k/uL Macrocytosis PT (10.0-12.5) sec INR (<1.2) ABG pH (7.35-7.45) ABG pCO2 (35-45) mmHg ABG pO2 (83-108) mmHg ABG Total CO2 (19-24) mmol/L ABG O2 Saturation (94-97) % Hemoglobin (13.0-17.5) gm/dL Sodium (137-145) mmol/L Potassium 3.0 L (3.5-5.1) mmol/L Chloride 111 H (98-107) mmol/L Carbon Dioxide (22-30) mmol/L Glucose (74-99) mg/dL Plasma Lactic Acid Julio (0.7-2.0) mmol/L Calcium 7.6 L (8.4-10.2) mg/dL Magnesium 1.5 L (1.6-2.3) mg/dL Troponin I (0.000-0.034) ng/mL Total Protein 4.7 L (6.3-8.2) g/dL Albumin 2.0 L (3.5-5.0) g/dL Urine Protein Trace H (Negative) Urine Blood Small H (Negative) Urine Bilirubin 1+ H (Negative) Ur Leukocyte Esterase Large H (Negative) Urine WBC 86 H (0-5) /hpf Urine Bacteria Many H (None) /hpf Urine Mucus Few H (None) /hpf 07/12/24 07/13/24 07/13/24 Range/Units 11:30 04:10 04:21 WBC (3.8-10.6) k/uL RBC 2.69 L (4.30-5.90) m/uL Hgb 9.3 L D (13.0-17.5) gm/dL Hct 29.6 L (39.0-53.0) % MCV 109.8 H D (80.0-100.0) fL Plt Count 136 L (150-450) k/uL Neutrophils # (1.3-7.7) k/uL Lymphocytes # (Manual) 0.30 L (1.0-4.8) k/uL Macrocytosis Marked A PT (10.0-12.5) sec INR (<1.2) ABG pH 7.26 L (7.35-7.45) ABG pCO2 52 H (35-45) mmHg ABG pO2 321 H (83-108) mmHg ABG Total CO2 25 H (19-24) mmol/L ABG O2 Saturation 100.0 H (94-97) % Hemoglobin 12.1 L (13.0-17.5) gm/dL Sodium (137-145) mmol/L Potassium (3.5-5.1) mmol/L Chloride (98-107) mmol/L Carbon Dioxide (22-30) mmol/L Glucose (74-99) mg/dL Plasma Lactic Acid Julio 2.1 H* (0.7-2.0) mmol/L Calcium (8.4-10.2) mg/dL Magnesium (1.6-2.3) mg/dL Troponin I (0.000-0.034) ng/mL Total Protein (6.3-8.2) g/dL Albumin (3.5-5.0) g/dL Urine Protein (Negative) Urine Blood (Negative) Urine Bilirubin (Negative) Ur Leukocyte Esterase (Negative) Urine WBC (0-5) /hpf Urine Bacteria (None) /hpf Urine Mucus (None) /hpf 07/13/24 07/13/24 07/13/24 Range/Units 04:21 04:21 05:20 WBC 12.4 H (3.8-10.6) k/uL RBC 3.91 L (4.30-5.90) m/uL Hgb (13.0-17.5) gm/dL Hct (39.0-53.0) % MCV 109.3 H (80.0-100.0) fL Plt Count (150-450) k/uL Neutrophils # 10.4 H (1.3-7.7) k/uL Lymphocytes # (Manual) (1.0-4.8) k/uL Macrocytosis Marked A PT 14.6 H (10.0-12.5) sec INR 1.4 H (<1.2) ABG pH (7.35-7.45) ABG pCO2 (35-45) mmHg ABG pO2 (83-108) mmHg ABG Total CO2 (19-24) mmol/L ABG O2 Saturation (94-97) % Hemoglobin (13.0-17.5) gm/dL Sodium (137-145) mmol/L Potassium (3.5-5.1) mmol/L Chloride (98-107) mmol/L Carbon Dioxide (22-30) mmol/L Glucose (74-99) mg/dL Plasma Lactic Acid Julio (0.7-2.0) mmol/L Calcium (8.4-10.2) mg/dL Magnesium (1.6-2.3) mg/dL Troponin I 0.040 H* (0.000-0.034) ng/mL Total Protein (6.3-8.2) g/dL Albumin (3.5-5.0) g/dL Urine Protein (Negative) Urine Blood (Negative) Urine Bilirubin (Negative) Ur Leukocyte Esterase (Negative) Urine WBC (0-5) /hpf Urine Bacteria (None) /hpf Urine Mucus (None) /hpf 07/13/24 Range/Units 09:18 WBC (3.8-10.6) k/uL RBC (4.30-5.90) m/uL Hgb (13.0-17.5) gm/dL Hct (39.0-53.0) % MCV (80.0-100.0) fL Plt Count (150-450) k/uL Neutrophils # (1.3-7.7) k/uL Lymphocytes # (Manual) (1.0-4.8) k/uL Macrocytosis PT (10.0-12.5) sec INR (<1.2) ABG pH (7.35-7.45) ABG pCO2 (35-45) mmHg ABG pO2 (83-108) mmHg ABG Total CO2 (19-24) mmol/L ABG O2 Saturation (94-97) % Hemoglobin (13.0-17.5) gm/dL Sodium 129 L (137-145) mmol/L Potassium (3.5-5.1) mmol/L Chloride (98-107) mmol/L Carbon Dioxide 12 L (22-30) mmol/L Glucose 66 L (74-99) mg/dL Plasma Lactic Acid Julio (0.7-2.0) mmol/L Calcium 6.2 L* (8.4-10.2) mg/dL Magnesium (1.6-2.3) mg/dL Troponin I (0.000-0.034) ng/mL Total Protein 5.5 L (6.3-8.2) g/dL Albumin 2.2 L (3.5-5.0) g/dL Urine Protein (Negative) Urine Blood (Negative) Urine Bilirubin (Negative) Ur Leukocyte Esterase (Negative) Urine WBC (0-5) /hpf Urine Bacteria (None) /hpf Urine Mucus (None) /hpf Chest x-ray: report reviewed CT scan - chest: report reviewed CT Scan - head: report reviewed Assessment and Plan (1) Pulmonary embolism Current Visit: Yes Status: Acute Priority: High Code(s): I26.99 - OTHER PULMONARY EMBOLISM WITHOUT ACUTE COR PULMONALE SNOMED Code(s): 00975356 (2) Respiratory failure Current Visit: Yes Status: Acute Priority: High Code(s): J96.90 - RESPIRA TORY FAILURE, UNSP, UNSP W HYPOXIA OR HYPERCAPNIA SNOMED Code(s): 684124717 (3) Urinary tract infection Current Visit: Yes Status: Acute Priority: High Code(s): N39.0 - URINARY TRACT INFECTION, SITE NOT SPECIFIED SNOMED Code(s): 51133684 (4) Weakness Current Visit: Yes Status: Acute Priority: High Code(s): R53.1 - WEAKNESS SNOMED Code(s): 38279853 Plan: Respiratory failure, Bilateral PE: Patient presented to the emergency room with progressing weakness and confusion over the last couple days. Patient became hypotensive, hypoxic and unresponsive and was subsequently intubated. -CTA chest was obtained revealing new bilateral acute pulmonary emboli with large right sided thrombus present. Cannot exclude RV strain. Small to tiny right greater than left pleural effusions. Bilateral groundglass opacities and consolidation more prominent on the right with right-sided volume loss. -Heparin drip started -Echocardiogram pending. Cardiology and Vascular surgery following -Patient has been anticoagulated with Eliquis 5 mg twice daily for history of left lower extremity DVT diagnosed in June 2023. states patient does his own medications at home so is unsure how many doses he missed, but suspects at least 2 to 3 doses were missed prior to admission. Eliquis was restarted last night and pt received 1 dose. Per , patient is normally compliant with all of his medications. Denies complaints of CP and SOB and leg swelling -Based on findings of acute infection, immobilization, and missing at least 2-3 doses of eliquis, would not consider this Eliquis failure. Continue IV heparin for now, once extubated and there is no plan for interventions/procedures pt can be transitioned back to Eliquis. -BLE dopplers obtained for baseline
--- NOTE | 2024-07-13 16:55 | US ---
"EXAMINATION TYPE: US venous doppler duplex LE DATE OF EXAM: 07/13/2024 4:42 PM COMPARISON: US 2022 CLINICAL INDICATION: Male, 68 years old with history of PE on anticoagulation, baseline. Hx LLE DVT; Hx DVT. PE., Pain TECHNIQUE: The lower extremity deep venous system is examined utilizing real time linear array sonog da with graded compression, color doppler sonography, and spectral doppler. SIDE PERFORMED: Bilateral FINDINGS: VESSELS IMAGED: Common Femoral Vein Deep Femoral Vein Greater Saphenous Vein * Femoral Vein Right Popliteal Vein Right Small Saphenous Vein * (* superficial vessels) Right Leg: *Internal echoes and color defect seen within CFV, femoral vein, deep femoral vein, and p opliteal vein. These veins do not compress. Greater amount of internal echoes seen in popliteal vein than in the upper leg. Prox calf veins not seen. PTVs and peroneals not seen. Left Leg: There appear to be internal echoes within CFV, GSV, and femoral vein. Color defect/ lack o f color flow seen. These veins do not compress. There was no color flow seen in mid and distal femoral vein. Pt has amputation of lower leg. IMPRESSION: Bilateral deep vein thrombosis as described above. A [place] level critical message alert has been initiated for Raphael Reddy MD via the [employer] | Critical Results System on 07/13/2024 4:52 PM. This message alert has been sent to Ellie Reddy MD via the preferences provided by the clinician for the receipt of Radiology Critical F indings. Message ID [id number]. [facility], , 07/13/2024 4:52 PM"
[2024-07-13] MEDS: IOPAMIDOL-370 100ML BTL INJ ONE (18:00)
[2024-07-13 18:38] LABS: Glucose,Whole Blood 65 mg/dL (70-110)
[2024-07-13] MEDS: DEXTROSE 50% SYRINGE 50 ML IVP STA (18:41)
[2024-07-13] MEDS ORDERED: POTASSIUM CHLORIDE 20 MEQ in WATER FOR INJECTION 1 100ML.BAG IVPB STA (20:34)
[2024-07-13] MEDS: POTASSIUM CHLORIDE 10 MEQ in WATER FOR INJECTION 1 100ML.BAG IVPB SCH (20:55)
[2024-07-13] MEDS ORDERED: POTASSIUM CHLORIDE 20 MEQ in WATER FOR INJECTION 1 100ML.BAG IVPB ONE (21:00)
[2024-07-13] MEDS: MAGNESIUM SULFATE-D5W PMX 1 GM in DEXTROSE/WATER 1 100ML.BAG IVPB SCH (21:48)
[2024-07-13 22:13] LABS: Glucose,Whole Blood 77 mg/dL (70-110)
--- NOTE | 2024-07-14 00:07 | HP ---
HISTORY AND PHYSICAL CHIEF COMPLAINT: Confusion and chills. HISTORY OF PRESENT ILLNESS: This is another admission for this 68-year-old white male who has had numerous problems throughout his life including heavy nicotine use, prior hip surgery, which wound up being infected and subsequently came to the point where there was no surgical procedure that would allow him to safely have another prosthesis. He then developed ischemia of the left leg and lined up with an AK amputation. Several months ago, he probably had a CVA because he became weaker, slightly confused, and slightly aphasic. Family brought him to the emergency room when he became delirious and weak. When he got to the emergency room, he was thought to be septic and during the night, the A team was called when he became hypotensive and had to be intubated and placed on the ventilator. LABORATORY DATA: Laboratory studies were fairly normal except for a calcium of 6.2. REVIEW OF SYSTEMS: Cannot be obtained. PHYSICAL EXAMINATION: VITAL SIGNS: Blood pressure is 81/46 with a pulse of 124, and temperature 99.2. GENERAL: He appeared to be sedated on the ventilator and he was on vasopressors. HEENT: Pupils were equally round in mid-range and gaze was slightly dysconjugate. Carotids are normal. CHEST: Demonstrated breath sounds bilaterally. ABDOMEN: Soft and nontender. EXTREMITIES: Revealed his amputation. IMPRESSION: He is admitted to the hospital with diagnoses of, 1. Septicemia. 2. Hypotension. 3. Hypokalemia. 4. Chronic obstructive pulmonary disease. 5. Peripheral vascular occlusive disease. 6. Left BK amputation. 7. Probable urinary tract infection. 8. Recent cerebrovascular accident. PLAN: 1. ICU management on ventilator. 2. Probably cultures. 3. Antibiotics. 4. Vasopressors. 5. Consult with Intensive Medicine. 6. Treat for aspiration pneumonia. MMODL / IJN: [id number] /
[2024-07-14 00:27] LABS: Glucose,Whole Blood 86 mg/dL (70-110)
--- NOTE | 2024-07-14 00:35 | XR ---
EXAM: XR Chest, 1 View CLINICAL HISTORY: L arm numbness, hx of CVA x2wks ago. Pt a+o x4, ambulated independent. OG placement TECHNIQUE: Frontal view of the chest. COMPARISON: Chest radiograph from the same day at 428 hour. FINDINGS: Lungs: Small to moderate amount of airspace opacities, in both lungs more on the right, decreased. Pleural space: Persistent small bilateral pleural effusions more on the right. Mediastinum: Unremarkable. Normal mediastinal contour. Bones/joints: Osteopenia. Mild degenerative changes. Old right rib fracture. Tubes, lines and devices: Tip of endotracheal tube is about 6.9 cm above the level of the jason. Enteric tube is not seen. IMPRESSION: 1. Enteric tube is not seen. 2. Small to moderate amount of airspace opacities, in both lungs more on the right, decreased.
--- NOTE | 2024-07-14 01:21 | P.PCN ---
Date of Procedure: 07/14/24 Preoperative Diagnosis: Hypotension and shock Postoperative Diagnosis: Hypotension and shock Procedure(s) Performed: Insertion of a left brachial arterial line Indications for Procedure: Continuous blood pressure monitoring and frequent blood draws Description of Procedure: Informed consent was obtained, and a procedural timeout was performed . The patient was placed in supine position. The left brachial region was prepared in a sterile fashion, and a sterile drape was applied. The left brachial artery was palpated, easily cannulated, and a guidewire was placed. A Cook catheter was inserted over the guidewire, and the guidewire was removed. There was good arterial blood flow, good arterial waveform, and no complications. The line was secured with using a 3-0 silk suture.
[2024-07-14 01:38] LABS: ABG Base Excess -14.6 mmol/L; ABG HCO3 14 mmol/L (21-25); ABG Oxygen Saturation 98.9 % (94-97); ABG PCO2 41 mmHg (35-45); ABG PO2 153 mmHg (83-108); ABG TCO2 15 mmol/L (19-24); Allen Test Performed? Yes
[2024-07-14 02:03] VITALS: BP 91/43
[2024-07-14 02:07] LABS: ABG PH 7.14 (7.35-7.45)
[2024-07-14] MEDS: SODIUM BICARB 8.4% 50 ML SYR (1 MEQ/ML) IV STA (02:14)
--- NOTE | 2024-07-14 02:27 | XR ---
EXAM: XR Chest, 1 View CLINICAL HISTORY: OG placement, ET tube reposition TECHNIQUE: Frontal view of the chest. COMPARISON: Yesterday at 22:26 hour IMPRESSION: Tip of enteric tube is in the airway of right lower or middle lobe. Please slowly withdrawal the tube to prevent potential pneumothorax. No substantial change otherwise. <MYCVCSECTION> Communications: 07/14/24 02:40 Verify Receipt with Nurse Verified receipt with Nurse Mcdonough for TORY Bradford on 07/14 02:39 (-05:00) 07/14/24 02:40 Verify Receipt Verified receipt with Nurse Ceasar for TORY Bradford on 07/14 02:40 (-05:00)
[2024-07-14] MEDS: DEXTROSE 5% IN WATER 1,000 ML with SODIUM BICARB (1 MEQ/ML) 150 ML IV SCH (02:32)
[2024-07-14 04:13] VITALS: TEMP 98.2
[2024-07-14] MEDS ORDERED: LORazepam 2 MG/ML INJ IV PRN (05:18)
[2024-07-14] MEDS: MORPHINE SULFATE 2 MG/ML SYRINGE IV PRN (05:36)
[2024-07-14] MEDS: MORPHINE SULFATE (100 MG/2 ML) 100 MG in SODIUM CHLORIDE 0.9% 100 ML IV SCH (05:53)
[2024-07-14 07:06] VITALS: PULSE 44; RESP 3
--- NOTE | 2024-07-14 08:08 | P.OP ---
Date of Procedure: 07/13/24 Preoperative Diagnosis: Submassive pulmonary emboli. Postoperative Diagnosis: Same. Procedure(s) Performed: 1: Ultrasound-guided cannulation right femoral vein. 2: Bilateral pulmonary angiography. 3: Extrication of pulmonary emboli from the right and left pulmonary veins and right superior pulmonary vein Anesthesia: RODOLFO Surgeon: Shaheen Callahan Estimated Blood Loss (ml): 50 Pathology: none sent Condition: stable Disposition: ICU Indications for Procedure: Patient is a 68-year-old male who had presented to the emergency department with shortness of breath found to be suffering from large bilateral pulmonary emboli, more pronounced on the right than on the left. Eventually the patient required intubation. He had very high peak pulmonary pressures. Echocardiogram had been performed which demonstrated evidence of right heart strain. Given the CTA findings and evidence of right heart strain I discussed with the patient's and family pulmonary thrombectomy/embolectomy. The procedure, risk and benefits were discussed. All questions were answered to spouse and family satisfaction. Consent form signed. Description of Procedure: Patient was brought to the cardiac catheterization suite. The right and left groins were sterilely prepped draped in usual manner. Ultrasound was utilized to identify the right common femoral vein. Thrombus was identified within the common femoral vein. Utilizing ultrasound a micropuncture needle was utilized to cannulate the vein. Once cannulated soft tipped guidewire is advanced in the vein. The needle was withdrawn and a micropuncture sheath and dilator advanced over the guidewire. Guidewire and dilator were withdrawn and through the sheath a 0.035 inch guidewire was advanced. The micropuncture sheath was withdrawn and exchanged for an 8 Armenian sheath. Under fluoroscopy Glidewire and angled pulmonary catheter were advanced in combination. Guidewire was then advanced into the right ventricle. The angled pulmonary catheter was exchanged for a 5 Armenian angled glide catheter which was then advanced into the right pulmonary vein. The Glidewire was exchanged for a stiff wire. The 8 Armenian sheath was removed and FlowTriever sheath was advanced over the guidewire. The dilator was withdrawn and FlowTriever suction catheter and guidewire were advanced over the guidewire and placed in the main pulmonary vein on the right. Suction thrombectomy was performed with old thrombus and some new thrombus material being retrieved. The catheter was then repositioned into the superior pulmonary vein and repeat thrombectomy was performed utilizing the FlowTriever. Pulmonary angiogram was performed which demonstrated complete removal/no evidence of residual thrombus/embolus within the right pulmonary system. The catheter was then manipulated into the left pulmonary vein as thrombus was noted in the pulmonary vein. Again clot/embolus was removed. Completion pulmonary angiogram demonstrated the main trunks to be open. Patient's peak pulmonary pressures were noted to have dropped into the upper teens/low 20 level. With the above findings noted the sheath and catheter were withdrawn and pressure was held at the puncture site until all evidence of bleeding ceased. Should be noted that the patient did receive 3000 units of heparin intravenously during the procedure and had been maintained on a constant heparin drip during the procedure.
--- NOTE | 2024-07-14 09:32 | P.PN ---
Progress Note - Text Progress Note Date: 07/14/24 Came to see patient in the ICU. Patient is , family had made him comfort care and he he passed early this morning. The impression and plan of care has been dictated as directed. I performed a history and examination of this patient, discussed the same with the dictator. I agree with the dictator's note ,documented as a scribe. Any additional findings or plans will be noted.
--- NOTE | 2024-07-14 09:54 | IR ---
EXAMINATION TYPE: IR transcath infusion therapy DATE OF EXAM: 07/14/2024 9:22 AM COMPARISON: Pre Operative Images if available both CT/MRI or plain film CLINICAL INDICATION: Male, 68 years old with history of PE, 8.4m/0.431DAP, Rt gr manual pressure.; TECHNIQUE: IR transcath infusion therapy, multiple fluoroscopic images provided for procedure. Total fluoroscopy time: 8.4 seconds Total submitted images to PACS: 65 DAP: 0.431 mGym2 Gycm2 uGym2 cGycm2 or equivalent. FINDINGS: IMPRESSION: 1. Report was generated for administrative purposes only. 2. Please see the operative/procedural note for further details. [facility], , 07/14/2024 9:51 AM
--- NOTE | 2024-07-15 02:08 | DS ---
DISCHARGE SUMMARY CHIEF COMPLAINT: Delirium, hypotension, and sepsis. HISTORY OF PRESENT ILLNESS AND PHYSICAL EXAMINATION: Details of this man's history and physical can be found in the initial workup. LABORATORY STUDIES: While he was in the hospital, he had laboratory studies, details of which can be found in the laboratory section of his chart. COURSE IN THE HOSPITAL: After admission, he was placed on bedrest and started on intravenous fluids and vasopressors while he was in the emergency room. He was intubated shortly thereafter. He was moved to the intensive care unit, where he became progressively more unstable, requiring more pressors to support his blood pressure. Family was made aware of the situation and they decided to make him a do not resuscitate. He continued to slowly deteriorate until he lost his blood pressure and on the morning of the . FINAL DIAGNOSES: 1. Septicemia. 2. Urinary tract infection. 3. Chronic obstructive pulmonary disease. 4. Recent cerebrovascular accident. 5. Peripheral vascular occlusive disease with AKA amputation. OPERATIONS: None. CONSULTATIONS: Infectious Disease and Intensive Medicine. MMODL / EVI: [id number] /
== END 2024-07-14 07:00 | disposition expired | DRG 853 ==
LOC: EC 10:44 → 5NMEDONC 13:29 → 2SICU 07-13 04:56 → OBSVTOIN 07-13 05:57 → 2SICU 07-13 13:23
PROVIDERS: ADMIT Family Medicine; ATTEND Family Medicine
PROC: 5A1945Z Respiratory Ventilation, 24-96 Consecutive Hours (ICD-10-PCS; 2024-07-13)
PROC: 0BH17EZ Insertion of Endotracheal Airway into Trachea, Via Natural or Artificial Opening (ICD-10-PCS; 2024-07-13)
PROC: 02HV33Z Insertion of Infusion Device into Superior Vena Cava, Percutaneous Approach (ICD-10-PCS; principal; 2024-07-14)
PROC: 4A133B1 Monitoring of Arterial Pressure, Peripheral, Percutaneous Approach (ICD-10-PCS; 2024-07-14)
PROC: 03HY32Z Insertion of Monitoring Device into Upper Artery, Percutaneous Approach (ICD-10-PCS; 2024-07-14)
PROC: 4A133J1 Monitoring of Arterial Pulse, Peripheral, Percutaneous Approach (ICD-10-PCS; 2024-07-14)
PROC: 02CQ3ZZ Extirpation of Matter from Right Pulmonary Artery, Percutaneous Approach (ICD-10-PCS; 2024-07-14)
PROC: 02CR3ZZ Extirpation of Matter from Left Pulmonary Artery, Percutaneous Approach (ICD-10-PCS; 2024-07-14)
PROC: B31S1ZZ Fluoroscopy of Right Pulmonary Artery using Low Osmolar Contrast (ICD-10-PCS; 2024-07-14)
PROC: B31T1ZZ Fluoroscopy of Left Pulmonary Artery using Low Osmolar Contrast (ICD-10-PCS; 2024-07-14)
PROC: 05HB33Z Insertion of Infusion Device into Right Basilic Vein, Percutaneous Approach (ICD-10-PCS; 2024-07-14)
PROC: 3E033XZ Introduction of Vasopressor into Peripheral Vein, Percutaneous Approach (ICD-10-PCS; 2024-07-14)
PROC: 02HV33Z Insertion of Infusion Device into Superior Vena Cava, Percutaneous Approach (ICD-10-PCS; 2024-07-14)
PROC: B5181ZA Fluoroscopy of Superior Vena Cava using Low Osmolar Contrast, Guidance (ICD-10-PCS; 2024-07-14)
PROC: B548ZZA Ultrasonography of Superior Vena Cava, Guidance (ICD-10-PCS; 2024-07-14)
DX: A41.9 Sepsis, unspecified organism (principal); I26.09 Other pulmonary embolism with acute cor pulmonale; J69.0 Pneumonitis due to inhalation of food and vomit; J96.01 Acute respiratory failure with hypoxia; J96.02 Acute respiratory failure with hypercapnia; N39.0 Urinary tract infection, site not specified; R47.01 Aphasia; R57.0 Cardiogenic shock; E03.9 Hypothyroidism, unspecified; Z79.890 Hormone replacement therapy; E78.5 Hyperlipidemia, unspecified; E87.6 Hypokalemia; F17.210 Nicotine dependence, cigarettes, uncomplicated; I12.9 Hypertensive chronic kidney disease with stage 1 through stage 4 chronic kidney disease, or unspecified chronic kidney disease; J44.9 Chronic obstructive pulmonary disease, unspecified; K21.9 Gastro-esophageal reflux disease without esophagitis; D64.9 Anemia, unspecified; Z11.52 Encounter for screening for COVID-19; N18.9 Chronic kidney disease, unspecified; I73.9 Peripheral vascular disease, unspecified; Z51.5 Encounter for palliative care; Z66 Do not resuscitate; Z79.01 Long term (current) use of anticoagulants; Z79.899 Other long term (current) drug therapy; Z86.711 Personal history of pulmonary embolism; Z86.73 Personal history of transient ischemic attack (TIA), and cerebral infarction without residual deficits; Z86.718 Personal history of other venous thrombosis and embolism; Z87.440 Personal history of urinary (tract) infections; Z89.612 Acquired absence of left leg above knee; Z96.641 Presence of right artificial hip joint; Z89.512 Acquired absence of left leg below knee; Z88.5 Allergy status to narcotic agent; Z88.8 Allergy status to other drugs, medicaments and biological substances; Z88.7 Allergy status to serum and vaccine; I25.2 Old myocardial infarction; Z86.14 Personal history of Methicillin resistant Staphylococcus aureus infection; Z86.19 Personal history of other infectious and parasitic diseases
CPT/HCPCS: 31500; 36415; 36600; 37184; 37185; 51701; 70450; 71045; 71046; 71275; 75743; 80053; 81001; 82805; 83605; 83735; 84484; 85025; 85610; 85730; 87040; 87070; 87077; 87086; 87186; 87205; 87636; 93005; 93306; 93970; 94002; 94003; 96361; 96365; 96366; 96367; 96368; 96375; 96376; 99285